=== PATIENT | male | born 1940 | race Caucasian/White ===

== ENCOUNTER 2022-08-04 13:11 | Emergency (ER) | payer OTHER, SELFPAY ==
[2022-08-04 13:34] VITALS: BP 130/78; PULSE 102; RESP 20; TEMP 36.6; O2SAT 98; BMI 31.4
--- NOTE | 2022-08-04 13:35 | ED_ITS ---
HPI - Skin/Abscess/Foreign Bdy General Chief complaint: Skin/Abscess/Foreign Body Stated complaint: Boil on Neck Time Seen by Provider: 08/04/22 13:39 Source: patient Mode of arrival: ambulatory History of Present Illness HPI narrative: 82-year-old male with no significant past medical history presenting to the ED complaining of boil behind left-side of neck/behind ear x3 weeks. Admits area was growing initially however has stopped. Denies area being painful, drainage, fever/chills, change in color, history of skin CA MD complaint: lesion Onset (ago): week(s) Related Data Allergies Allergy/AdvReac Type Severity Reaction Status Date / Time No Known Allergies Allergy Unverified 04/17/20 14:57 Review of Systems Review of Systems: Constitutional: No Fever, No Chills ENT/Mouth: No Ear Pain, No Nasal Congestion, No sore throat, No Rhinorrhea, No Swallowing Difficulty Cardiovascular: No Chest Pain, No SOB Respiratory: No Cough, No Sputum Gastrointestinal: No Nausea, No Vomiting, No Diarrhea, No Constipation, No Abdominal pain Genitourinary: No Dysuria, No Hematuria, No Flank Pain Musculoskeletal: No joint pain, No Myalgias, No Joint Swelling Skin: + Skin Lesions, No rash Neuro: No Weakness, No Numbness, No Paresthesias Yes all other systems are reviewed and are negative Constitutional: Constitutional: Reports as per [facility] Past Medical History Attestation statement: The following information was validated with the patient. Social History Social History Advance Directives: Yes Advance Directives on File: No Physical Exam Vital Signs: Vital Signs: Last Vital Signs Temp 97.9 F 08/04/22 13:34 Pulse 102 H 08/04/22 13:34 Resp 20 08/04/22 13:34 BP 130/78 08/04/22 13:34 Pulse Ox 98 08/04/22 13:34 O2 Del Method 08/04/22 13:34 BMI result Body Mass Index 31.4 Const: General: cooperative, healthy appearing and no acute distress Orientation/consciousness: patient oriented x3 Limitations: no limitations HEENT: Head: Yes normal to inspection and Yes atraumatic Ears: hearing grossly normal bilaterally, external ears normal and mastoids normal General nose exam: Normal external nose present Face and sinus: Yes normal facial exam Eyes: General: appearance normal, both eyes and all related structures EOM: EOMs intact bilaterally Neck: Neck: Yes normal visual inspection and Yes no meningeal signs Resp: Effort & Inspection: normal respiratory effort and no respiratory distress Cardio: Rate: regular rate Skin: Other: 1.5 cm x 1.5 cm lesion noted behind left ear with telangiectasias. Dark and light in color. Firm. No fluctuance/induration, no surrounding erythema Rashes: no rashes Neuro: General: patient oriented x3, tone normal and no meningeal signs Gait exam (Neuro): Normal gait present Extrem: General: Yes normal to inspection Medical Decision Making Medical Decision Making MDM Narrative: 82-year-old male with no significant past medical history presenting to the ED complaining of boil behind left-side of neck/behind ear x3 weeks. On exam mildly tachycardic to 102, anxious, physical exam as above concerning for skin cancer. No evidence of cellulitis, low suspicion for abscess, osteomyelitis Discussed with patient risk versus benefit of opening area, and recommended not disturbing lesion in till clear etiology noted. Recommended very close follow- up with Dermatology and or Plastic surgery for biopsy/removal Differential Diagnosis Differential Diagnoses: The differential diagnosis associated with the presentation includes As above Discharge Plan Discharge Clinical Impression: Skin lesion Patient Disposition: Home, Self-Care Instructions: Skin Biopsy (DC) Additional Instructions: Please follow-up with dermatology or plastic surgery as soon as possible. Call your primary care doctor for help. If area continues to grow, turns red/looks infected, is warm, or has drainage return to the emergency department You likely need a skin biopsy Referrals: Joe Kelley MD [Physician] - Yamilet Ellison PA [Physician Eating Disorder Specialist] - Clay Telles MD [Physician] - Francisco Gross MD [Physician] - Jeancarlos Duarte MD [Physician] - Duke Bearden MD [Physician] - Robbie Long MD [Physician] -
== END 2022-08-04 13:51 | disposition home or self-care (01) ==
PROVIDERS: Emergency Provider Emergency Medicine
DX: L98.8 Other specified disorders of the skin and subcutaneous tissue (principal); R00.0 Tachycardia, unspecified
CPT/HCPCS: 99282

== ENCOUNTER 2024-05-06 20:20 | Inpatient (IN) | payer OTHER, SELFPAY ==
--- NOTE | ~2024-05-06 | CT_ITS ---
EXAMINATION: CT ABDOMEN AND PELVIS WITHOUT CONTRAST CLINICAL INFORMATION: Spasms COMPARISON: None available. TECHNIQUE: Multidetector volumetric imaging was performed from the superior aspect of the liver through the pubic symphysis. Sagittal and coronal reformatted images were obtained on the technologist's workstation. This CT examination was performed using dose optimization techniques as appropriate, variously including the following: *Automated exposure control *Adjustment of mA and/or kV according to patient size (this includes techniques or standardized protocols for targeted exams where dose is matched to indication/reason for exam; i.e. extremities or head) *Use of iterative reconstruction technique DLP: 965 mGy-cm FINDINGS: LUNG BASES: The lung bases are clear. The heart size is normal. LIVER, GALLBLADDER, AND BILIARY TREE: The liver is enlarged and size, normal shape, and attenuation. No focal hepatic lesion or biliary ductal dilatation is present. The gallbladder is unremarkable with no evidence of radiopaque gallstones, gallbladder wall thickening, or obvious pericholecystic inflammatory changes. PANCREAS: There is scattered calcifications seen throughout the pancreas suggestive of chronic pancreatitis. No focal lesion seen. The peripancreatic soft tissues are normal . SPLEEN: Unremarkable. ADRENAL GLANDS: Unremarkable. KIDNEYS AND URETERS: The kidneys are normal in size, shape, and attenuation. There is a right peripelvic cyst with bilateral perinephric stranding. A hypodense exophytic lesion lower pole right kidney probable complex cyst., Stable There is calcification versus stone upper pole calyx right kidney. It was not visualized on the previous CT chest 05/06/2024. No hydronephrosis seen. BLADDER: The bladder is nondistended with a Givens's catheter within. Mild bladder wall thickening noted. GASTROINTESTINAL TRACT: There is moderate scattered stool, diverticuli and gas seen throughout the colon without distention. The small bowel loops are normal caliber. Appendix is not visualized. The small bowel loops are normal caliber. No free air or free fluid seen. ABDOMINAL WALL: A small umbilical hernia containing fat. LYMPH NODES: Normal. VASCULAR: There is atherosclerotic calcification abdominal aorta without aneurysmal dilatation. PELVIC VISCERA: The prostate gland is mildly enlarged with central gland calcification. OSSEOUS STRUCTURES: No aggressive lytic or sclerotic process seen. Mild degenerative disc changes lumbar spine. 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 CT/CT abdomen pelvis wo IV con IMPRESSION: 1. No acute intra-abdominal process seen. 2. Colonic diverticulosis without diverticulitis. 3. Right peripelvic cyst and small exams of lytic complex cyst lower pole right kidney. Stable. 4. Nonobstructive calcification versus stone upper pole calyx right kidney, new. 5. Mild bladder wall thickening with Givens's catheter within. 6. Mild prostate enlargement with central gland calcification. 7. Chronic pancreatitis. Fleischner guidelines were followed. Electronically signed by: Yemi Medina MD 05/09/2024 07:22 PM EDT RP
--- NOTE | ~2024-05-06 | CT_ITS ---
EXAMINATION: CT ABDOMEN AND PELVIS WITHOUT CONTRAST CLINICAL INFORMATION: Intra-abdominal bleeding COMPARISON: None available. TECHNIQUE: Multidetector volumetric imaging was performed from the superior aspect of the liver through the pubic symphysis. Sagittal and coronal reformatted images were obtained on the technologist's workstation. This CT examination was performed using dose optimization techniques as appropriate, variously including the following: *Automated exposure control *Adjustment of mA and/or kV according to patient size (this includes techniques or standardized protocols for targeted exams where dose is matched to indication/reason for exam; i.e. extremities or head) *Use of iterative reconstruction technique DLP: 687 mGy-cm FINDINGS: LUNG BASES: There is bronchial thickening and bibasilar atelectasis. LIVER, GALLBLADDER, AND BILIARY TREE: The liver is enlarged measuring 18 rin centimeters in greatest length. Attenuation is minimally decreased consistent with hepatic steatosis. No focal hepatic lesion or biliary ductal dilatation is present. The gallbladder is unremarkable with no evidence of radiopaque gallstones, gallbladder wall thickening, or obvious pericholecystic inflammatory changes. PANCREAS: Diffuse calcifications are seen throughout the pancreas consistent with chronic pancreatitis SPLEEN: Unremarkable. ADRENAL GLANDS: Unremarkable. KIDNEYS AND URETERS: The kidneys are normal in size, shape, and attenuation. No hydronephrosis, hydroureter, or calculi seen. A multiple parapelvic right-sided Bosniak class I renal cysts are noted which requires no additional imaging or follow up. No solid renal masses are seen. BLADDER: Unremarkable. GASTROINTESTINAL TRACT: The small and large bowel are unremarkable. The appendix is not seen but there is no evidence of appendicitis. ABDOMINAL WALL: Small periumbilical hernia seen containing only fat along with mild diastases of the rectus muscles. No abdominal wall hematoma is seen. LYMPH NODES: No retroperitoneal lymphadenopathy. No retroperitoneal hematoma is seen. VASCULAR: Calcific atherosclerotic changes are present in the aorta and iliofemoral vessels. There is no evidence of an abdominal aortic aneurysm. PELVIC VISCERA: The prostate and seminal vesicles are unremarkable. OSSEOUS STRUCTURES: Marked degenerative changes are present in the spine most prominent at L5-S1. CT/CT abdomen pelvis wo IV con IMPRESSION: 1. A there is no evidence of intra-abdominal bleeding. 2. Incidental note made of an enlarged fatty liver, chronic pancreatitis, degenerative changes in the spine and other findings described above. Fleischner guidelines were followed. Electronically signed by: Duke Carrasco MD 05/07/2024 12:45 AM EDT RP
--- NOTE | ~2024-05-06 | CT_ITS ---
EXAM: CT scan of the head and cervical spine. INDICATION: SVT TECHNIQUE: A noncontrast CT scan was performed from the skull base to the vertex. A noncontrast CT scan of the cervical spine was performed from the base of the skull through T1 at 2.5 mm and 1.25 mm collimation. Coronal and sagittal reformats were obtained at the acquisition workstation. This CT examination was performed using dose optimization techniques as appropriate, variously including the following: *Automated exposure control *Adjustment of mA and/or kV according to patient size (this includes techniques or standardized protocols for targeted exams where dose is matched to indication/reason for exam; i.e. extremities or head) *Use of iterative reconstruction technique DLP: mGy-cm COMPARISON: None FINDINGS: Head: There is no evidence of acute intracranial hemorrhage or territorial infarction. Little-white matter differentiation is preserved. No abnormal mass effect or midline shift. No extra-axial fluid collections. No abnormal attenuation is demonstrated within the brain parenchyma. Scattered periventricular and deep white matter hypodensities consistent with microangiopathy. The ventricles and sulcal spaces are proportional without hydrocephalus. Proportional prominence of the ventricles and sulcal spaces. No acute osseous or soft tissue abnormalities. The mastoid air cells and visualized portions of the paranasal sinuses are well aerated. Cervical Spine: The atlantooccipital and atlantoaxial articulations remain well aligned. Straightening of the normal cervical lordosis. Otherwise, there is anatomic alignment of the vertebral bodies and posterior elements. No evidence of acute fracture or subluxation. The vertebral body heights and disc spaces are notable for severe degenerative disc disease from C2 to 3 to C7-T1.. There is no prevertebral soft tissue swelling. The thyroid gland and remaining cervical soft tissues are normal in appearance. The lung apices demonstrate no abnormalities. CT/CT cervical spine wo IV con IMPRESSION: No acute intracranial pathology. No acute fracture subluxation cervical spine. Chest one view: No focal lesion. Heart and mediastinal normal. Lungs clear. No pleural disease. No ectopic air. IMPRESSION: No active chest disease. Electronically signed by: Tarun Ma MD 05/06/2024 11:02 PM EDT
[2024-05-06 20:25] VITALS: BP 110/54; PULSE 142; O2SAT 98
[2024-05-06 20:28] VITALS: BP 122/80; PULSE 150; RESP 26; TEMP 36.8; O2SAT 95; BMI 35.2
--- NOTE | 2024-05-06 20:38 | ECG_ITS ---
Test Reason : TACARDYA Blood Pressure : / mmHG Vent. Rate : 156 BPM Atrial Rate : 000 BPM P-R Int : 000 ms QRS Dur : 080 ms QT Int : 264 ms P-R-T Axes : 000 014 031 degrees QTc Int : 425 ms Supraventricular tachycardia Otherwise normal ECG No previous ECGs available Referred By: Generic ED Physician Electronically Signed By:BREANA GARCES
[2024-05-06 20:46] LABS: Glucose, Whole Blood 335 mg/dL (60-115)
[2024-05-06] MEDS: Adenosine 6 MG/2 ML VIAL IVPUSH (21:08)
[2024-05-06] MEDS: 0.9 % Sodium Chloride 1,000 ML 999 ML IV (21:09)
[2024-05-06 21:11] LABS: MANUAL DIFF FLAG NO
[2024-05-06 21:14] LABS: Basophils Percent Auto 0.4 % (0-2); Hematocrit 45.5 % (42.0-52.0); Hemoglobin 15.7 g/dl (14.0-18.0); Imm Gran Abs Auto 0.02 X10*3/uL (0.00-0.03); Imm Gran Pct Auto 0.3 % (0.0-0.4); Lymphocytes Absolute Auto 0.7 X10*3/uL (1.2-4.9); Lymphocytes Percent Auto 10.3 % (20-40); Mean Corpuscular HGB Conc 34.5 g/dl (31.0-36.0); Mean Corpuscular Hemoglobin 31.5 pg (27.0-33.0); Mean Corpuscular Volume 91.4 fL (80.0-98.0); Mean Platelet Volume 12.1 fL (9.4-12.4); Monocytes Absolute Auto 1.1 X10*3/uL (0.1-1.2); Monocytes Percent Auto 15.4 % (2-11); Neutrophils Absolute Auto 5.2 x10*3/uL (2.0-8.3); Neutrophils Percent Auto 73.6 % (45-73); Platelet Count 181 X10*3/uL (160-400); Red Blood Count 4.98 X10*6/uL (4.60-5.80); Red Cell Distribution Width 13.2 % (11.0-16.0); White Blood Count 7.1 X10*3/uL (4.8-10.8)
[2024-05-06] MEDS: Adenosine 6 MG/2 ML VIAL 12 MG IVPUSH (21:14)
--- NOTE | 2024-05-06 21:22 | ECG_ITS ---
Test Reason : TACARDYA Blood Pressure : / mmHG Vent. Rate : 153 BPM Atrial Rate : 000 BPM P-R Int : 000 ms QRS Dur : 074 ms QT Int : 298 ms P-R-T Axes : 000 -14 028 degrees QTc Int : 475 ms Supraventricular tachycardia Possible Inferior infarct , age undetermined Abnormal ECG When compared with ECG of 06-MAY-2024 20:41, No significant change was found Referred By: Leonarda Castillo Electronically Signed By:BREANA GARCES
[2024-05-06 21:33] VITALS: TEMP 37.8
[2024-05-06 21:36] LABS: Alanine Aminotransferase 21 U/L (0-40); Albumin Level 3.9 g/dL (3.5-5.0); Alkaline Phosphatase 90 U/L (39-117); Anion Gap 17 (12-20); Aspartate Amino Transferase 39 U/L (5-37); Beta-Hydroxybutyrate 1.16 mmol/L (0.02-0.27); Bilirubin Total 0.8 mg/dL (0.0-1.0); Blood Urea Nitrogen 32 mg/dL (9-16); Calcium 9.1 mg/dL (8.4-10.2); Carbon Dioxide 22 mmol/L (22-29); Chloride 103 mmol/L (96-108); Creatinine Clr Calc Pharmacy 34.8; Estimated Glomerular Filt Rate 36; Glucose Random 326 mg/dL (60-115); Magnesium 2.1 mg/dL (1.6-2.6); Potassium 4.5 mmol/L (3.3-5.1); Sodium 137 mmol/L (135-145); Total Protein 7.2 g/dL (6.5-8.0)
[2024-05-06] MEDS: 0.9 % Sodium Chloride 3,061.74 ML 3061.74 ML IV (21:37)
[2024-05-06] MEDS: cefTRIAXone sodium 2 GM in 0.9 % Sodium Chloride 50 ML IV (21:37)
[2024-05-06] MEDS: Acetaminophen 1,000 MG/100 ML PIGGYBACK 400 MG IV (21:37)
[2024-05-06 21:38] LABS: Troponin-I High Sensitivity 19.6 ng/L (<3.5-35.0)
[2024-05-06 21:40] LABS: B Type Natriuretic Peptide 28 pg/mL (<100)
[2024-05-06 21:41] LABS: Prothrombin Time 11.4 SEC (10.9-12.4)
[2024-05-06 21:47] VITALS: BP 122/72; PULSE 151; RESP 24; TEMP 37.1; O2SAT 93
[2024-05-06 22:01] LABS: Lactic Acid 2.3 mmol/L (0.5-2.0)
[2024-05-06 22:04] LABS: Influenza A PCR NEGATIVE (Negative); Influenza B PCR NEGATIVE (Negative); Resp Syncy Virus RNA Qual PCR NEGATIVE (Negative); SARS COV2 PCR INHOUSE POSITIVE (Negative)
[2024-05-06 22:32] LABS: Glucose, Whole Blood 302 mg/dL (60-115)
--- NOTE | 2024-05-06 22:46 | PC.NURSE ---
Attempted to straight cath patient x 2, ashlee red blood stuck in cath tubing w/ clots noted. Bladder scan completed showed >350, Jodi CANALES to bedside w/ provider US to assess patient, plan to insert 3 way barron for potential CBI, Jodi to order.
--- NOTE | 2024-05-06 23:14 | PC.NURSE ---
Patient BIBA w/ HR 150's, POC > 300, adenosine x 2 w/ good affect, 18G inserted by PA provider Jodi, cultures and lactic sent, temp 100.0 rectally. Patient's HR continues to range from 120's - 130's, plan to insert 3 way barron passed along to taking over RN Ainsley.
--- NOTE | 2024-05-06 23:25 | PC.NURSE ---
assumed care of the pt at 23:15.
[2024-05-06 23:36] LABS: Reflex Lactate? Lactic Acid Added
--- NOTE | 2024-05-06 23:44 | ED.GENADULT ---
HPI - General Adult General Chief complaint: Fall Stated complaint: unwit fall,-loc,+thinner,hyperglycemic&tachycardia Time Seen by Provider: 05/06/24 20:41 Source: patient Limitations: no limitations History of Present Illness ED Provider: Leonarad Castillo PA-C HPI narrative: 84-year-old male with a history of prostate cancer status post radiation, diabetes, presents after a fall at home. Patient states he literally rolled out of bed, and was wedged between the bed and his dresser. Patient was down on the ground for approximately 4 hours before he was able to call for assistance. Patient states he has had cough cold symptoms for 4 days. Unclear if he has had a fever. Patient denies preceding chest pain, shortness of breath or palpitations. Patient denies any pain related complaints at this time. Denies abdominal pain, nausea, vomiting, diarrhea, dysuria. Related Data Allergies Allergy/AdvReac Type Severity Reaction Status Date / Time No Known Allergies Allergy Verified 05/06/24 20:37 Review of Systems Review of Systems: Yes all other systems are reviewed and are negative Constitutional: Constitutional: Denies fever(s) Cardiovascular: Cardiovascular: Denies chest pain, Denies palpitations and Denies dyspnea Respiratory: Respiratory: Reports cough and Denies dyspnea Gastrointestinal: Gastrointestinal: Denies diarrhea, Denies nausea and Denies vomiting Genitourinary: Genitourinary: Denies dysuria, Denies urinary frequency and Denies urinary hesitancy Endocrine: Endocrine: Denies palpitations PMF Past Medical History Attestation statement: The following information was validated with the patient. Social History Social History Smoked in Last 30 Days: No Use of substances other than those prescribed or required for medical reasons: No Advance Directives: No Advance Directives Information Provided: Yes Do you have a plan to hurt others: No Plan Physical Exam ED Vital Signs: Vital Signs - 24 hr 05/06/24 20:28 05/06/24 21:33 05/06/24 21:47 Temperature 98.3 F 100.0 F 98.7 F Pulse Rate 150 H 151 H Respiratory Rate 26 H 24 H Blood Pressure 122/80 122/72 Pulse Oximetry 95 93 Oxygen Delivery Method Room Air Room Air 05/07/24 00:07 05/07/24 01:30 05/07/24 01:44 Temperature Pulse Rate 119 H 104 H 108 H Respiratory Rate 14 19 19 Blood Pressure 109/51 L 105/55 L 96/52 L Pulse Oximetry 94 92 92 Oxygen Delivery Method Room Air Room Air Room Air BMI result Body Mass Index 35.2 Const Other: Alert, overall well in appearance, no obvious signs of head trauma on exam Orientation/consciousness: patient oriented x3 Neck Other: Soft, supple, full range of motion no midline tenderness Resp Other: Nonlabored respirations, lungs clear to auscultation, however does have an active somewhat wet cough Effort & Inspection: normal respiratory effort Cardio Other: Normal peripheral perfusion GI Other: Abdomen is soft, nondistended, nontender no guarding, obese abdomen Skin Other: Warm dry no rash Neuro General: patient oriented x3, no focal motor deficits and CN's II-XI intact bilaterally Psych Other: Calm cooperative Course Reevaluation(s) Reevaluation #1: Refractory to initial dose of adenosine 6 mg, we will repeat with 12 mg Reevaluation #2: Patient is converting, he is now sinus tachycardia, however the rate is variable, we will obtain a repeat EKG we are just discovering that he is febrile as well we obtained a rectal temp, this is a likely cause of his tachycardia, we will be giving IV Tylenol, starting IV fluid resuscitation 30 mL/kilogram. I did bedside echo, IVC collapsed, he is hyperdynamic, we will be starting empiric antibiotics with ceftriaxone Reevaluation #3: 2nd EKG, he still is in SVT in that moment, his right then drops, he remains variable Additional Reevaluation(s): The patient's rate we will drop down to 101, his pressures are stable, he is over 100 systolic, his map was appropriate, when I obtained a 3rd EKG, he is now a flutter with variable AV block, a rate of 125, we also just tried to place a Givens catheter for CBI, huge amount of clot is obstructing the cath.....we may need uology, CT abd still pending..... which elicited a great deal of discomfort. We will be giving morphine. I have viewed his IVC, he still has respiratory variant, he is receiving L to in 3 at this time from his weight based IV fluid resuscitation Medications Administered Discontinued Medications Generic Name Dose Route Start Last Admin Trade Name Sahra PRN Reason Stop Dose Admin Adenosine 6 mg 05/06/24 20:51 05/06/24 21:08 Adenosine 6 Mg/2 Ml Vial IVPUSH 05/06/24 20:52 6 mg ONCE ONE Administration Adenosine 12 mg 05/06/24 21:11 05/06/24 21:14 Adenosine 6 Mg/2 Ml Vial IVPUSH 05/06/24 21:12 12 mg ONCE ONE Administration Sodium Chloride 1,000 mls @ 999 mls/hr 05/06/24 21:00 05/07/24 00:48 Ns IV 05/06/24 22:00 Infused .Q1H1M ASHVIN Infusion Ceftriaxone Sodium 2 gm/ 50 mls @ 100 mls/hr 05/06/24 21:22 05/06/24 22:58 Sodium Chloride IV 05/06/24 21:51 Infused ONCE ONE Infusion Acetaminophen 1,000 mg in 100 mls @ 400 mls/hr 05/06/24 21:22 05/06/24 22:58 Ofirmev IV 05/06/24 21:36 Infused ONCE ONE Infusion Sodium Chloride 3,061.74 mls @ 3,061.74 mls/hr 05/06/24 21:29 05/07/24 01:15 Ns 30 ml/kg infuse over 1 hr (3061.74 ml) 05/06/24 22:28 Infused IV Infusion .Q1H STA Lidocaine HCl 10 ml 05/07/24 00:24 05/07/24 01:39 Lidocaine Hcl 2 % Urojet 10 Ml Jel.Pf.Sabas TOPICAL 05/07/24 00:25 10 ml ONCE ONE Administration Morphine Sulfate 4 mg 05/06/24 23:50 05/06/24 23:54 Morphine Sulfate 4 Mg/Ml Cartridge IVPUSH 05/06/24 23:51 4 mg ONCE ONE Administration Protocol Procedures Procedure Narrative Procedure Narrative: 18 gauge 3/4 inch ultrasound guided IV placed in the right upper extremity. Adequate blood return, flushes well, secured with Tegaderm Medical Decision Making Medical Decision Making MDM Narrative: 84-year-old male with a history of prostate cancer status post radiation, diabetes, presents after a fall at home. Patient states he literally rolled out of bed, and was wedged between the bed and his dresser. Patient was down on the ground for approximately 4 hours before he was able to call for assistance. Patient states he has had cough cold symptoms for 4 days. Unclear if he has had a fever. Patient denies preceding chest pain, shortness of breath or palpitations. Patient denies any pain related complaints at this time. Denies abdominal pain, nausea, vomiting, diarrhea, dysuria. Problem: Prostate cancer and diabetes History: Per patient I have considered the following differential diagnoses: ACS, , sepsis, PE, intracranial hemorrhage, cervical spine injury, perforated viscus, viral syndrome, pneumonia, Fracture, dislocation Plan: In regard to the fall, the patient was down on the ground for an extended period of time, I am concerned for rhabdomyolysis, with screening labs I will add a CPK. Given his age, it is unclear if he struck his head, I will scan his head and neck, to note, there was no sign of trauma on exam, he is not altered, he is neurologically intact, there was nothing to suggest an intracranial hemorrhage. He also has no midline tenderness of the cervical spine which is reassuring. Incidentally, the patient is in SVT with a rate of 156. I asked the patient if he has been ill recently, he is endorsing cough and cold symptoms over the past 4 days. Perhaps he was febrile. I am planning on giving adenosine, we will obtain a rectal temp once the patient is stabilized. We will give concurrent IV fluid as his pressures are soft, low 100 systolic. I am also considering sepsis, we will be obtaining blood cultures and a lactic acid, chest x-ray, viral panel and urinalysis. I do not think this is ACS, the patient has not had chest pain, there was no preceding chest pain or shortness of breath prior to the mechanical fall. However, given his rapid rate, he was on the floor for an extended period of time, and was presumably tachycardic for the duration, we will be screening cardiac enzymes. Thought about PE given tachycardia, however the patient is not complaining of chest pain, he is not hypoxic, there are no objective exam findings to suggest a DVT, I am deferring a dimer at this time. When the patient was catheterized to obtain a urine sample we will, the catheter was clogged with clot, I am now concerned for intra-abdominal bleeding despite the fact the patient denies abdominal pain, we will obtain a CT scan. I have viewed the bladder with bedside ultrasound, the bladder is intact, it is distended, he is retaining, the volume is approximately 1L. Given concurrent clot, we will place a three-way in the event that he requires CBI. The patient is febrile, we will initiate IV fluid resuscitation, per sepsis protocol, 30 mL/kilogram. I did assessed with bedside echo, his contractility is hyperdynamic at this time, his IVC is collapsing, he can take the fluid. We will give IV acetaminophen, and start empiric ceftriaxone. I have independently reviewed the following tests: Labs: No leukocytosis, not anemic, no electrolyte abnormality, creatinine 1.83, unclear if this is elevated from his baseline, sugar 335, CPK 1167, 1st troponin 19.6, BOH1.16 we will obtain a 2nd troponin and a 2nd lactate when it is time, I will do so at the 2 hour zen COVID positive Repeat lactate 1.6, delta troponin 25 EKG: SVT, rate of 156, QTC 4-5 EKG 2.: SVT, rate of 153, QT 475 EKG 3.: A flutter with a variable AV block, rate of 125, qtc 453 CXR: chest one view: No focal lesion. Heart and mediastinal normal. Lungs clear. No pleural disease. No ectopic air. IMPRESSION: No active chest disease. CT brain and cervical spine:CT scan of the head and cervical spine. INDICATION: SVT TECHNIQUE: A noncontrast CT scan was performed from the skull base to the vertex. A noncontrast CT scan of the cervical spine was performed from the base of the skull through T1 at 2.5 mm and 1.25 mm collimation. Coronal and sagittal reformats were obtained at the acquisition workstation. This CT examination was performed using dose optimization techniques as appropriate, variously including the following: *Automated exposure control *Adjustment of mA and/or kV according to patient size (this includes techniques or standardized protocols for targeted exams where dose is matched to indication/reason for exam; i.e. extremities or head) *Use of iterative reconstruction technique DLP: mGy-cm COMPARISON: None FINDINGS: Head: There is no evidence of acute intracranial hemorrhage or territorial infarction. Little-white matter differentiation is preserved. No abnormal mass effect or midline shift. No extra-axial fluid collections. No abnormal attenuation is demonstrated within the brain parenchyma. Scattered periventricular and deep white matter hypodensities consistent with microangiopathy. The ventricles and sulcal spaces are proportional without hydrocephalus. Proportional prominence of the ventricles and sulcal spaces. No acute osseous or soft tissue abnormalities. The mastoid air cells and visualized portions of the paranasal sinuses are well aerated. Cervical Spine: The atlantooccipital and atlantoaxial articulations remain well aligned. Straightening of the normal cervical lordosis. Otherwise, there is anatomic alignment of the vertebral bodies and posterior elements. No evidence of acute fracture or subluxation. The vertebral body heights and disc spaces are notable for severe degenerative disc disease from C2 to 3 to C7-T1.. There is no prevertebral soft tissue swelling. The thyroid gland and remaining cervical soft tissues are normal in appearance. The lung apices demonstrate no abnormalities. CT/CT head/brain wo IV con IMPRESSION: No acute intracranial pathology. No acute fracture subluxation cervical spine. Chest one view: No focal lesion. Heart and mediastinal normal. Lungs clear. No pleural disease. No ectopic air. IMPRESSION: No active chest disease. Electronically signed by: Tarun Ma MD 05/06/2024 11:[address] abd: CT ABDOMEN AND PELVIS WITHOUT CONTRAST CLINICAL INFORMATION: Intra-abdominal bleeding COMPARISON: None available. TECHNIQUE: Multidetector volumetric imaging was performed from the superior aspect of the liver through the pubic symphysis. Sagittal and coronal reformatted images were obtained on the technologist's workstation. This CT examination was performed using dose optimization techniques as appropriate, variously including the following: *Automated exposure control *Adjustment of mA and/or kV according to patient size (this includes techniques or standardized protocols for targeted exams where dose is matched to indication/reason for exam; i.e. extremities or head) *Use of iterative reconstruction technique DLP: 687 mGy-cm FINDINGS: LUNG BASES: There is bronchial thickening and bibasilar atelectasis. LIVER, GALLBLADDER, AND BILIARY TREE: The liver is enlarged measuring 18 rin centimeters in greatest length. Attenuation is minimally decreased consistent with hepatic steatosis. No focal hepatic lesion or biliary ductal dilatation is present. The gallbladder is unremarkable with no evidence of radiopaque gallstones, gallbladder wall thickening, or obvious pericholecystic inflammatory changes. PANCREAS: Diffuse calcifications are seen throughout the pancreas consistent with chronic pancreatitis SPLEEN: Unremarkable. ADRENAL GLANDS: Unremarkable. KIDNEYS AND URETERS: The kidneys are normal in size, shape, and attenuation. No hydronephrosis, hydroureter, or calculi seen. A multiple parapelvic right-sided Bosniak class I renal cysts are noted which requires no additional imaging or follow up. No solid renal masses are seen. BLADDER: Unremarkable. GASTROINTESTINAL TRACT: The small and large bowel are unremarkable. The appendix is not seen but there is no evidence of appendicitis. ABDOMINAL WALL: Small periumbilical hernia seen containing only fat along with mild diastases of the rectus muscles. No abdominal wall hematoma is seen. LYMPH NODES: No retroperitoneal lymphadenopathy. No retroperitoneal hematoma is seen. VASCULAR: Calcific atherosclerotic changes are present in the aorta and iliofemoral vessels. There is no evidence of an abdominal aortic aneurysm. PELVIC VISCERA: The prostate and seminal vesicles are unremarkable. OSSEOUS STRUCTURES: Marked degenerative changes are present in the spine most prominent at L5-S1. CT/CT abdomen pelvis wo IV con IMPRESSION: 1. A there is no evidence of intra-abdominal bleeding. 2. Incidental note made of an enlarged fatty liver, chronic pancreatitis, degenerative changes in the spine and other findings described above. Fleischner guidelines were followed. Electronically signed by: Duke Carrasco MD 05/07/2024 12:45 AM EDT Lab Data 05/06/24 21:05 05/06/24 21:05 Labs: Lab Results 05/06/24 05/06/24 05/06/24 Range/Units 20:43 21:05 21:05 WBC 7.1 (4.8-10.8) X10*3/uL RBC 4.98 (4.60-5.80) X10*6/uL Hgb 15.7 (14.0-18.0) g/dl Hct 45.5 (42.0-52.0) % MCV 91.4 (80.0-98.0) fL MCH 31.5 (27.0-33.0) pg MCHC 34.5 (31.0-36.0) g/dl RDW 13.2 (11.0-16.0) % Plt Count 181 (160-400) X10*3/uL MPV 12.1 (9.4-12.4) fL Immature Gran % (Auto) 0.3 (0.0-0.4) % Neut % (Auto) 73.6 H (45-73) % Lymph % (Auto) 10.3 L (20-40) % Garrett % (Auto) 15.4 H (2-11) % Eos % (Auto) 0.0 (0-4) % Baso % (Auto) 0.4 (0-2) % Lymph # (Auto) 0.7 L (1.2-4.9) X10*3/uL Garrett # (Auto) 1.1 (0.1-1.2) X10*3/uL Eos # (Auto) 0.0 (0.0-0.4) X10*3/uL Baso # (Auto) 0.0 (0.0-0.2) X10*3/uL Abs Immat Gran (auto) 0.02 (0.00-0.03) X10*3/uL Absolute Neuts (auto) 5.2 (2.0-8.3) x10*3/uL Absolute Nucleated RBC 0.000 (0.0-0.012) X10*3/uL Nucleated RBC % (auto) 0.0 (0.0-0.2) /100WBC PT 11.4 (10.9-12.4) SEC INR 1.0 (0.9-1.1) Sodium Cancelled 137 Potassium Cancelled Chloride Carbon Dioxide Anion Gap BUN Creatinine Estim Creat Clear Calc Estimated GFR POC Glucose 335 H (60-115) mg/dL Random Glucose Lactic Acid (0.5-2.0) mmol/L Calcium Magnesium Total Bilirubin AST ALT Alkaline Phosphatase Total Creatine Kinase (38-174) U/L Troponin I High Sens (<3.5-35.0) ng/L B-Natriuretic Peptide (<100) pg/mL Total Protein Albumin Beta-Hydroxybutyrate Influenza Type A (PCR) (Negative) Influenza Type B (PCR) (Negative) RSV RNA Qual (PCR) (Negative) SARS-CoV-2 RNA (RT-PCR) (Negative) 05/06/24 05/06/24 05/06/24 Range/Units 21:05 21:05 21:05 WBC (4.8-10.8) X10*3/uL RBC (4.60-5.80) X10*6/uL Hgb (14.0-18.0) g/dl Hct (42.0-52.0) % MCV (80.0-98.0) fL MCH (27.0-33.0) pg MCHC (31.0-36.0) g/dl RDW (11.0-16.0) % Plt Count (160-400) X10*3/uL MPV (9.4-12.4) fL Immature Gran % (Auto) (0.0-0.4) % Neut % (Auto) (45-73) % Lymph % (Auto) (20-40) % Garrett % (Auto) (2-11) % Eos % (Auto) (0-4) % Baso % (Auto) (0-2) % Lymph # (Auto) (1.2-4.9) X10*3/uL Garrett # (Auto) (0.1-1.2) X10*3/uL Eos # (Auto) (0.0-0.4) X10*3/uL Baso # (Auto) (0.0-0.2) X10*3/uL Abs Immat Gran (auto) (0.00-0.03) X10*3/uL Absolute Neuts (auto) (2.0-8.3) x10*3/uL Absolute Nucleated RBC (0.0-0.012) X10*3/uL Nucleated RBC % (auto) (0.0-0.2) /100WBC PT (10.9-12.4) SEC INR (0.9-1.1) Sodium Potassium 4.5 Chloride Cancelled 103 Carbon Dioxide Cancelled 22 Anion Gap Cancelled BUN Creatinine Estim Creat Clear Calc Estimated GFR POC Glucose (60-115) mg/dL Random Glucose Lactic Acid (0.5-2.0) mmol/L Calcium Magnesium Total Bilirubin AST ALT Alkaline Phosphatase Total Creatine Kinase (38-174) U/L Troponin I High Sens (<3.5-35.0) ng/L B-Natriuretic Peptide (<100) pg/mL Total Protein Albumin Beta-Hydroxybutyrate Influenza Type A (PCR) (Negative) Influenza Type B (PCR) (Negative) RSV RNA Qual (PCR) (Negative) SARS-CoV-2 RNA (RT-PCR) (Negative) 05/06/24 05/06/24 05/06/24 Range/Units 21:05 21:05 21:05 WBC (4.8-10.8) X10*3/uL RBC (4.60-5.80) X10*6/uL Hgb (14.0-18.0) g/dl Hct (42.0-52.0) % MCV (80.0-98.0) fL MCH (27.0-33.0) pg MCHC (31.0-36.0) g/dl RDW (11.0-16.0) % Plt Count (160-400) X10*3/uL MPV (9.4-12.4) fL Immature Gran % (Auto) (0.0-0.4) % Neut % (Auto) (45-73) % Lymph % (Auto) (20-40) % Garrett % (Auto) (2-11) % Eos % (Auto) (0-4) % Baso % (Auto) (0-2) % Lymph # (Auto) (1.2-4.9) X10*3/uL Garrett # (Auto) (0.1-1.2) X10*3/uL Eos # (Auto) (0.0-0.4) X10*3/uL Baso # (Auto) (0.0-0.2) X10*3/uL Abs Immat Gran (auto) (0.00-0.03) X10*3/uL Absolute Neuts (auto) (2.0-8.3) x10*3/uL Absolute Nucleated RBC (0.0-0.012) X10*3/uL Nucleated RBC % (auto) (0.0-0.2) /100WBC PT (10.9-12.4) SEC INR (0.9-1.1) Sodium Potassium Chloride Carbon Dioxide Anion Gap 17 BUN Cancelled 32 H Creatinine Cancelled 1.83 H Estim Creat Clear Calc Cancelled Estimated GFR POC Glucose (60-115) mg/dL Random Glucose Lactic Acid (0.5-2.0) mmol/L Calcium Magnesium Total Bilirubin AST ALT Alkaline Phosphatase Total Creatine Kinase (38-174) U/L Troponin I High Sens (<3.5-35.0) ng/L B-Natriuretic Peptide (<100) pg/mL Total Protein Albumin Beta-Hydroxybutyrate Influenza Type A (PCR) (Negative) Influenza Type B (PCR) (Negative) RSV RNA Qual (PCR) (Negative) SARS-CoV-2 RNA (RT-PCR) (Negative) 05/06/24 05/06/24 05/06/24 Range/Units 21:05 21:05 21:05 WBC (4.8-10.8) X10*3/uL RBC (4.60-5.80) X10*6/uL Hgb (14.0-18.0) g/dl Hct (42.0-52.0) % MCV (80.0-98.0) fL MCH (27.0-33.0) pg MCHC (31.0-36.0) g/dl RDW (11.0-16.0) % Plt Count (160-400) X10*3/uL MPV (9.4-12.4) fL Immature Gran % (Auto) (0.0-0.4) % Neut % (Auto) (45-73) % Lymph % (Auto) (20-40) % Garrett % (Auto) (2-11) % Eos % (Auto) (0-4) % Baso % (Auto) (0-2) % Lymph # (Auto) (1.2-4.9) X10*3/uL Garrett # (Auto) (0.1-1.2) X10*3/uL Eos # (Auto) (0.0-0.4) X10*3/uL Baso # (Auto) (0.0-0.2) X10*3/uL Abs Immat Gran (auto) (0.00-0.03) X10*3/uL Absolute Neuts (auto) (2.0-8.3) x10*3/uL Absolute Nucleated RBC (0.0-0.012) X10*3/uL Nucleated RBC % (auto) (0.0-0.2) /100WBC PT (10.9-12.4) SEC INR (0.9-1.1) Sodium Potassium Chloride Carbon Dioxide Anion Gap BUN Creatinine Estim Creat Clear Calc 34.8 Estimated GFR Cancelled 36 POC Glucose (60-115) mg/dL Random Glucose Cancelled 326 H Lactic Acid (0.5-2.0) mmol/L Calcium Cancelled Magnesium Total Bilirubin AST ALT Alkaline Phosphatase Total Creatine Kinase (38-174) U/L Troponin I High Sens (<3.5-35.0) ng/L B-Natriuretic Peptide (<100) pg/mL Total Protein Albumin Beta-Hydroxybutyrate Influenza Type A (PCR) (Negative) Influenza Type B (PCR) (Negative) RSV RNA Qual (PCR) (Negative) SARS-CoV-2 RNA (RT-PCR) (Negative) 05/06/24 05/06/24 05/06/24 Range/Units 21:05 21:05 21:05 WBC (4.8-10.8) X10*3/uL RBC (4.60-5.80) X10*6/uL Hgb (14.0-18.0) g/dl Hct (42.0-52.0) % MCV (80.0-98.0) fL MCH (27.0-33.0) pg MCHC (31.0-36.0) g/dl RDW (11.0-16.0) % Plt Count (160-400) X10*3/uL MPV (9.4-12.4) fL Immature Gran % (Auto) (0.0-0.4) % Neut % (Auto) (45-73) % Lymph % (Auto) (20-40) % Garrett % (Auto) (2-11) % Eos % (Auto) (0-4) % Baso % (Auto) (0-2) % Lymph # (Auto) (1.2-4.9) X10*3/uL Garrett # (Auto) (0.1-1.2) X10*3/uL Eos # (Auto) (0.0-0.4) X10*3/uL Baso # (Auto) (0.0-0.2) X10*3/uL Abs Immat Gran (auto) (0.00-0.03) X10*3/uL Absolute Neuts (auto) (2.0-8.3) x10*3/uL Absolute Nucleated RBC (0.0-0.012) X10*3/uL Nucleated RBC % (auto) (0.0-0.2) /100WBC PT (10.9-12.4) SEC INR (0.9-1.1) Sodium Potassium Chloride Carbon Dioxide Anion Gap BUN Creatinine Estim Creat Clear Calc Estimated GFR POC Glucose (60-115) mg/dL Random Glucose Lactic Acid (0.5-2.0) mmol/L Calcium 9.1 Magnesium Cancelled 2.1 Total Bilirubin Cancelled 0.8 AST Cancelled ALT Alkaline Phosphatase Total Creatine Kinase (38-174) U/L Troponin I High Sens (<3.5-35.0) ng/L B-Natriuretic Peptide (<100) pg/mL Total Protein Albumin Beta-Hydroxybutyrate Influenza Type A (PCR) (Negative) Influenza Type B (PCR) (Negative) RSV RNA Qual (PCR) (Negative) SARS-CoV-2 RNA (RT-PCR) (Negative) 05/06/24 05/06/24 05/06/24 Range/Units 21:05 21:05 21:05 WBC (4.8-10.8) X10*3/uL RBC (4.60-5.80) X10*6/uL Hgb (14.0-18.0) g/dl Hct (42.0-52.0) % MCV (80.0-98.0) fL MCH (27.0-33.0) pg MCHC (31.0-36.0) g/dl RDW (11.0-16.0) % Plt Count (160-400) X10*3/uL MPV (9.4-12.4) fL Immature Gran % (Auto) (0.0-0.4) % Neut % (Auto) (45-73) % Lymph % (Auto) (20-40) % Garrett % (Auto) (2-11) % Eos % (Auto) (0-4) % Baso % (Auto) (0-2) % Lymph # (Auto) (1.2-4.9) X10*3/uL Garrett # (Auto) (0.1-1.2) X10*3/uL Eos # (Auto) (0.0-0.4) X10*3/uL Baso # (Auto) (0.0-0.2) X10*3/uL Abs Immat Gran (auto) (0.00-0.03) X10*3/uL Absolute Neuts (auto) (2.0-8.3) x10*3/uL Absolute Nucleated RBC (0.0-0.012) X10*3/uL Nucleated RBC % (auto) (0.0-0.2) /100WBC PT (10.9-12.4) SEC INR (0.9-1.1) Sodium Potassium Chloride Carbon Dioxide Anion Gap BUN Creatinine Estim Creat Clear Calc Estimated GFR POC Glucose (60-115) mg/dL Random Glucose Lactic Acid (0.5-2.0) mmol/L Calcium Magnesium Total Bilirubin AST 39 H ALT Cancelled 21 Alkaline Phosphatase Cancelled 90 Total Creatine Kinase 1167 H (38-174) U/L Troponin I High Sens 19.6 (<3.5-35.0) ng/L B-Natriuretic Peptide 28 (<100) pg/mL Total Protein Cancelled Albumin Beta-Hydroxybutyrate Influenza Type A (PCR) (Negative) Influenza Type B (PCR) (Negative) RSV RNA Qual (PCR) (Negative) SARS-CoV-2 RNA (RT-PCR) (Negative) 05/06/24 05/06/24 05/06/24 Range/Units 21:05 21:05 21:05 WBC (4.8-10.8) X10*3/uL RBC (4.60-5.80) X10*6/uL Hgb (14.0-18.0) g/dl Hct (42.0-52.0) % MCV (80.0-98.0) fL MCH (27.0-33.0) pg MCHC (31.0-36.0) g/dl RDW (11.0-16.0) % Plt Count (160-400) X10*3/uL MPV (9.4-12.4) fL Immature Gran % (Auto) (0.0-0.4) % Neut % (Auto) (45-73) % Lymph % (Auto) (20-40) % Garrett % (Auto) (2-11) % Eos % (Auto) (0-4) % Baso % (Auto) (0-2) % Lymph # (Auto) (1.2-4.9) X10*3/uL Garrett # (Auto) (0.1-1.2) X10*3/uL Eos # (Auto) (0.0-0.4) X10*3/uL Baso # (Auto) (0.0-0.2) X10*3/uL Abs Immat Gran (auto) (0.00-0.03) X10*3/uL Absolute Neuts (auto) (2.0-8.3) x10*3/uL Absolute Nucleated RBC (0.0-0.012) X10*3/uL Nucleated RBC % (auto) (0.0-0.2) /100WBC PT (10.9-12.4) SEC INR (0.9-1.1) Sodium Potassium Chloride Carbon Dioxide Anion Gap BUN Creatinine Estim Creat Clear Calc Estimated GFR POC Glucose (60-115) mg/dL Random Glucose Lactic Acid (0.5-2.0) mmol/L Calcium Magnesium Total Bilirubin AST ALT Alkaline Phosphatase Total Creatine Kinase (38-174) U/L Troponin I High Sens (<3.5-35.0) ng/L B-Natriuretic Peptide (<100) pg/mL Total Protein 7.2 Albumin Cancelled 3.9 Beta-Hydroxybutyrate Cancelled 1.16 H Influenza Type A (PCR) (Negative) Influenza Type B (PCR) (Negative) RSV RNA Qual (PCR) (Negative) SARS-CoV-2 RNA (RT-PCR) (Negative) 05/06/24 05/06/24 05/06/24 Range/Units 21:06 21:31 21:44 WBC (4.8-10.8) X10*3/uL RBC (4.60-5.80) X10*6/uL Hgb (14.0-18.0) g/dl Hct (42.0-52.0) % MCV (80.0-98.0) fL MCH (27.0-33.0) pg MCHC (31.0-36.0) g/dl RDW (11.0-16.0) % Plt Count (160-400) X10*3/uL MPV (9.4-12.4) fL Immature Gran % (Auto) (0.0-0.4) % Neut % (Auto) (45-73) % Lymph % (Auto) (20-40) % Garrett % (Auto) (2-11) % Eos % (Auto) (0-4) % Baso % (Auto) (0-2) % Lymph # (Auto) (1.2-4.9) X10*3/uL Garrett # (Auto) (0.1-1.2) X10*3/uL Eos # (Auto) (0.0-0.4) X10*3/uL Baso # (Auto) (0.0-0.2) X10*3/uL Abs Immat Gran (auto) (0.00-0.03) X10*3/uL Absolute Neuts (auto) (2.0-8.3) x10*3/uL Absolute Nucleated RBC (0.0-0.012) X10*3/uL Nucleated RBC % (auto) (0.0-0.2) /100WBC PT (10.9-12.4) SEC INR (0.9-1.1) Sodium Potassium Chloride Carbon Dioxide Anion Gap BUN Creatinine Estim Creat Clear Calc Estimated GFR POC Glucose 302 H (60-115) mg/dL Random Glucose Lactic Acid 2.3 H* (0.5-2.0) mmol/L Calcium Magnesium Total Bilirubin AST ALT Alkaline Phosphatase Total Creatine Kinase (38-174) U/L Troponin I High Sens (<3.5-35.0) ng/L B-Natriuretic Peptide (<100) pg/mL Total Protein Albumin Beta-Hydroxybutyrate Influenza Type A (PCR) NEGATIVE (Negative) Influenza Type B (PCR) NEGATIVE (Negative) RSV RNA Qual (PCR) NEGATIVE (Negative) SARS-CoV-2 RNA (RT-PCR) POSITIVE A (Negative) 05/07/24 Range/Units 00:12 WBC (4.8-10.8) X10*3/uL RBC (4.60-5.80) X10*6/uL Hgb (14.0-18.0) g/dl Hct (42.0-52.0) % MCV (80.0-98.0) fL MCH (27.0-33.0) pg MCHC (31.0-36.0) g/dl RDW (11.0-16.0) % Plt Count (160-400) X10*3/uL MPV (9.4-12.4) fL Immature Gran % (Auto) (0.0-0.4) % Neut % (Auto) (45-73) % Lymph % (Auto) (20-40) % Garrett % (Auto) (2-11) % Eos % (Auto) (0-4) % Baso % (Auto) (0-2) % Lymph # (Auto) (1.2-4.9) X10*3/uL Garrett # (Auto) (0.1-1.2) X10*3/uL Eos # (Auto) (0.0-0.4) X10*3/uL Baso # (Auto) (0.0-0.2) X10*3/uL Abs Immat Gran (auto) (0.00-0.03) X10*3/uL Absolute Neuts (auto) (2.0-8.3) x10*3/uL Absolute Nucleated RBC (0.0-0.012) X10*3/uL Nucleated RBC % (auto) (0.0-0.2) /100WBC PT (10.9-12.4) SEC INR (0.9-1.1) Sodium Potassium Chloride Carbon Dioxide Anion Gap BUN Creatinine Estim Creat Clear Calc Estimated GFR POC Glucose (60-115) mg/dL Random Glucose Lactic Acid 1.6 (0.5-2.0) mmol/L Calcium Magnesium Total Bilirubin AST ALT Alkaline Phosphatase Total Creatine Kinase (38-174) U/L Troponin I High Sens 25.1 (<3.5-35.0) ng/L B-Natriuretic Peptide (<100) pg/mL Total Protein Albumin Beta-Hydroxybutyrate Influenza Type A (PCR) (Negative) Influenza Type B (PCR) (Negative) RSV RNA Qual (PCR) (Negative) SARS-CoV-2 RNA (RT-PCR) (Negative) Critical Care Time Critical Care Time Critical Care Time: Yes Total Critical Care Time: 45 Attestation: The patient was critically ill with a high probability of imminent or life-threatening deterioration. I spent greater than 30 minutes of discontinuous time evaluating the patient, delivering critical care at the bedside, discussing evaluating data with consultants. Critical care time does not include time spent performing separately billable procedures or teaching. Time spent performing critical care with 45 minutes. Discharge Plan Discharge Clinical Impression: Other supraventricular tachycardia, Sepsis, COVID, MARCELLO (acute kidney injury), Rhabdomyolysis Patient Disposition: Admitted As Inpatient Print Language: Panamanian
--- NOTE | 2024-05-06 23:52 | ECG_ITS ---
Test Reason : repeat Blood Pressure : / mmHG Vent. Rate : 125 BPM Atrial Rate : 300 BPM P-R Int : 000 ms QRS Dur : 072 ms QT Int : 314 ms P-R-T Axes : 000 027 057 degrees QTc Int : 453 ms Atrial flutter with variable A-V block Anterior infarct , age undetermined Abnormal ECG When compared with ECG of 06-MAY-2024 21:33, Atrial flutter has replaced Sinus rhythm Anterior infarct is now Present Referred By: Leonarda Castillo Electronically Signed By:BREANA GARCES
[2024-05-06] MEDS: Morphine Sulfate 4 MG/ML CARTRIDGE IVPUSH (23:54)
[2024-05-07] VITALS (10 sets, daily range): BP systolic 96–136; BP diastolic 51–74; PULSE 81–124; RESP 14–21; TEMP 36.4–36.9; O2SAT 90–95
[2024-05-07 00:28] LABS: Lactic Acid 1.6 mmol/L (0.5-2.0)
[2024-05-07 00:39] LABS: Troponin-I High Sensitivity 25.1 ng/L (<3.5-35.0)
--- NOTE | 2024-05-07 00:49 | PC.NURSE ---
iv fluids still infusing.
--- NOTE | 2024-05-07 00:49 | PC.NURSE ---
20fr barron catheter inserted by MD Gotti. difficult insertion at first as provider thought CBI was indicated, barron not able to be inserted without coude . MD gotti used guide wire to insert barron w/ urojet assistance. pt tolerated well. clear yellow urine draining w/o issue, no blood or clots noted .
[2024-05-07] MEDS: Lidocaine HCl 2 % Urojet 10 ML JEL.PF.APP TOPICAL (01:39)
[2024-05-07 05:11] LABS: Hematocrit 41.1 % (42.0-52.0); Hemoglobin 13.9 g/dl (14.0-18.0); Mean Corpuscular HGB Conc 33.8 g/dl (31.0-36.0); Mean Corpuscular Hemoglobin 31.7 pg (27.0-33.0); Mean Corpuscular Volume 93.6 fL (80.0-98.0); Mean Platelet Volume 12.2 fL (9.4-12.4); Platelet Count 122 X10*3/uL (160-400); Red Blood Count 4.39 X10*6/uL (4.60-5.80); Red Cell Distribution Width 13.4 % (11.0-16.0); White Blood Count 5.7 X10*3/uL (4.8-10.8)
[2024-05-07 05:39] LABS: Anion Gap 11 (12-20); Blood Urea Nitrogen 29 mg/dL (9-16); Carbon Dioxide 18 mmol/L (22-29); Chloride 114 mmol/L (96-108); Creatinine Clr Calc Pharmacy 44.5; Estimated Glomerular Filt Rate 47; Glucose Random 229 mg/dL (60-115); Potassium 4.1 mmol/L (3.3-5.1); Sodium 139 mmol/L (135-145)
--- NOTE | 2024-05-07 07:00 | CA_ITS ---
Transthoracic Echocardiogram Patient (Last, First, Middle): Carl Houser J Gender: Male Date of : 1940 Age: 84 Procedure Date: 05/07/2024 Procedure Type: Transthoracic Echocardiogram Location: ER Height: 170.18 cm Weight: 102.06 kg BSA: 2.13 m2 Heart Rate: 85 bpm BP: 124 / 70 mmHg Chemical Equipment Sales Engineer: Referring MD: Geraldine CANALES Top Hat Body Maker: Saud Lane MD Symptoms: new aflutter Study Quality: Fair ECG Rhythm: Sinus with extra beats Conclusions: - 1. Technically limited study despite use of contrast agent 2. Normal LV ejection fraction at 60 65% with moderate LVH with impaired relaxation filling pattern 3. Mild aortic stenosis 4. 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 Normal RV systolic pressure Findings Procedure Information Contrast agent, definity, is being given per protocol without apparent complications. The quality of the study was technically difficult. The study quality is limited by lung artifact. Left Ventricle Normal left ventricular size and systolic function. There is moderately increased left ventricular wall thickness. The visually estimated ejection fraction is between 60-65%. Spectral Doppler is indicative of an impaired relaxation filling pattern. Right Ventricle The right ventricle was not well visualized. There is normal right ventricular systolic function. Atria The left atrium was not well visualized. Interatrial shunt cannot be excluded. The right atrium was not well visualized. Aortic Valve The aortic valve was not well visualized. There is moderate calcification of the aortic valve. There is mild aortic valve stenosis. The peak aortic gradient is 20 mmHg.The mean gradient is 11 mmHg. The aortic valve area is 1.54 cm2. There is no aortic valve regurgitation. Mitral Valve The mitral valve was not well visualized. There is moderate mitral annular calcification. There is no mitral valve regurgitation. There is no mitral valve stenosis. Pulmonic Valve The pulmonic valve was not well visualized. Tricuspid Valve Likely normal tricuspid valve structure and function. There is trace tricuspid valve regurgitation. The right ventricular systolic pressure is normal. The right ventricular systolic pressure is 18 mmHg. Normal right atrial pressure. There is no evidence of pulmonary hypertension. Great Vessels The aorta was not well visualized. The pulmonary artery was not well visualized. There is mild dilatation of the ascending aorta measuring 3.70 cm. Venous The inferior vena cava is normal in size. Pericardium/Pleural The pericardium was not well visualized. Prior Study Comparison No prior study available for comparison. Measurements 2D Linear Measurements IVSd: 1.40 0.6-0.9/0.6-1.0 cm LVIDd: 3.47 3.9-5.3/4.2-5.9 cm LVIDd Index: 1.63 2.4-3.2/2.2-3.1 cm/m2 LVIDs: 2.45 2.0-3.6 cm LVPWd: 1.42 0.7-1.1 cm LA Diam: 3.90 2.7-3.8/3.0-4.0 cm LAIDs Index: 1.83 1.5-2.3 cm/m2 LV Mass: 215.36 67-162/88-224 g LV Mass Index: 101.11 43-95/49-115 g/m2 LVOT Diam: 2.10 3.0+(-)1.3 cm Mitral Valve MV VTI: 0.30 MV Pk Markell: 0.90 MV Mn Markell: 0.56 MV Pk Grad: 3.00 MV Mn Grad: 2.00 MV Pk E: 0.85 MV PK A: 0.95 MV Decel Time: 196.00 E/A: 0.90 E'Lateral: 7.18 E'Medial: 6.20 E/E' Med: 13.70 E/E' Lat: 11.80 PHT: 57.00 MVA PHT: 3.86 MVA Continuity: 2.20 Decel Rosebud: 4.33 Aortic Valve AoV Pk Markell: 2.25 AoV Mn Markell: 1.54 AoV VTI: 0.43 AoV Pk Grad: 20.00 Aov Mn Grad: 11.00 MICHAEL Cont.VTI: 1.54 LVOT LVOT Pk Markell: 1.11 LVOT Mn Markell: 0.72 LVOT VTI: 0.19 LVOT Pk Grad: 5.00 LVOT Mn Grad: 3.00 LVOT Diam: 2.10 LVOT Area: 3.46 Diastolic Function MV Pk E: 0.85 MV Pk A: 0.95 E/A: 0.90 E'Medial: 6.20 E/E' Med: 13.70 E' Laterial: 7.18 E/E' Lat: 11.80 Right Ventricle TAPSE (mm): 22.90 Tricuspid Valve TR Pk Markell: 1.94 TR Pk Grad: 15.00 RA Press: 3.00 RVSP: 18.00 Great Vessels Aorta Sinus of Valsalva: 3.20 2.0-3.5 cm Ao Asc: 3.70 2.1-3.4 cm Pulmonary Valve PV Pk Markell: 0.95 Peak PV Grad: 4.00 Updated in Other Vendor System with Status of Final Saud Lane MD electronically signed on 05/07/2024 3:27:59 PM with status of Final
--- NOTE | 2024-05-07 07:30 | PC.NURSE ---
patient found by this RN in soiled sheets from prior shift, sheets had blood/urine/feces/ patient cleaned up by this RN, complete bed change, patient cleaned up. patient barron cath intact and in place. patient repositioned and sat up for breakfast.
[2024-05-07 07:33] LABS: Estimated Average Glucose 189 mg/dL; Hemoglobin A1C 243.1922 umol/L; Hemoglobin A1c % 8.2 % (<6.0); Total Hemoglobin (HGBA1C) 3662.5854 umol/L
[2024-05-07 07:35] LABS: Glucose, Whole Blood 185 mg/dL (60-115)
[2024-05-07] MEDS: Insulin Lispro 100 UNIT/ML 3 ML VIAL SUBCUT ×4 (07:37→21:55)
--- NOTE | 2024-05-07 09:10 | PM.IMHP ---
History of Present Illness Date of Service: 05/07/24 Attending physician on admission: Terence Cain Chief Complaint: fall, cough 84-year-old male with history of prostate cancer s/p radiation, [id number] type 2 diabetes presents to the ED late last night after sustaining a fall. The patient reports he was in bed and fell between the bed and the wall where he remained stuck for about 4 hours. He also states that for the last several days, has had an initially productive cough that is now dry, chills. Denies any fevers at home, sore throat, congestion, abdominal pain, nausea, vomiting, diarrhea, dysuria, hematuria, decreased urinary output, shortness of breath, palpitations, lightheadedness, or chest pains. He denies any known sick contacts. Reports he lives by himself. On arrival, patient was found to be in SVT with heart rate 156 and received 12, then 6 mg adenosine and upon rate slowing, showed atrial flutter but remains tachycardic in the 120s. On arrival, hematology studies appeared concentrated and repeat studies without any leukocytosis which showed a normocytic anemia with H/H 13.9/41.1%, platelets 122. On arrival, creatinine was 1.83 with a BUN 32, electrolyte levels normal with glucose of 326. Received 3 L IVF with improvement in creatinine to 1.43, BUN 29, electrolytes significant for chloride 114, CO2 18 and glucose improved to 229. Hemoglobin A1c measured at 8.2%. Initially total CK 1167, repeat 738 following IV fluids. Troponins flat. Beta hydroxybutyrate 1.16. The patient is positive for COVID-19 which appears to be a new diagnosis. Head CT negative for acute intracranial abnormality CT negative for acute osseous abnormality CXR negative for focal consolidation or acute cardiopulmonary abnormality. CT abdomen pelvis shows a chronic pancreatitis and enlarged fatty liver but no acute intra-abdominal abnormality or evidence of bleeding. Apparently, the patient was retaining urine and attempts at straight catheterization were made but failed and ultimately patient received Barron catheter due to acute urinary retention, drained 1 L urine and reportedly passed a large clot. Patient ultimately was not placed on CBI and is now draining clear yellow urine. In the ED received ceftriaxone, IV Tylenol, 3 L IVF, morphine and regular insulin. Review of Systems Review of Systems: Yes all other systems are reviewed and are negative PMFSH Medical History Status post radiation therapy Prostate cancer Type 2 diabetes mellitus Social History Patient Tobacco Use Status: Never used Tobacco Smoked in Last 30 Days: No Use of substances other than those prescribed or required for medical reasons: No Advance Directives: No Advance Directives Information Provided: Yes Do you have a plan to hurt others: No Plan Nutrition Risks: No Nutritional Risk service: Yes Meds Allergies Allergy/AdvReac Type Severity Reaction Status Date / Time No Known Allergies Allergy Verified 05/06/24 20:37 Active Medications: Current Medications Acetaminophen (Acetaminophen 325 Mg Tablet) 975 mg PO Q6H PRN PRN Reason: Pain, Mild (Pain Scale 1-3), fever or headache Glucose (Glucose Gel 15 Gm Gel..Gram.) 15 gm PO Q15M PRN; Protocol PRN Reason: per Hypoglycemia Standing Ord. Heparin Sodium (Porcine) (Heparin Sodium,Porcine 5,000 Unit/Ml Vial) 5,000 unit SUBCUT Q12H [facility] Dextrose (D10) 250 mls @ 750 mls/hr IV Q15M PRN; Protocol PRN Reason: per Hypoglycemia Standing Ord. Insulin Human Lispro (Insulin Lispro 100 Unit/Ml 3 Ml Vial) 0 unit SUBCUT QIDACHS [facility]; Protocol Last Admin: 05/07/24 07:37 Dose: 2 unit Sodium Chloride (0.9 % Sodium Chloride Flush 3 Ml Syringe) 3 ml IVFLUSH QSHIFT [facility] Last Admin: 05/07/24 08:49 Dose: Not Given Physical Exam Vital Signs and Narrative: Vital Signs: Last Vital Signs Temp 97.9 F 05/07/24 07:25 Pulse 120 H 05/07/24 07:25 Resp 14 05/07/24 07:25 BP 136/74 05/07/24 07:25 Pulse Ox 95 05/07/24 07:25 O2 Del Method Room Air 05/07/24 07:25 BMI result Body Mass Index 35.2 Constitutional - Awake and Alert, No apparent distress Eyes - PERRLA, EOMI Cardiovascular - S1S2, regular rhythm, tachycardic, No edema Respiratory - Normal lung expansion, Normal respiratory effort, No respiratory distress, CTA bilaterally Gastrointestinal - NT / ND; +BS; No rebound or guarding Extremities - no calf tenderness bilaterally, no swelling Skin - Warm/Dry Neurological - Alert & oriented x3 Psychological - Appropriate affect Results Labs 05/07/24 04:38 05/07/24 04:38 Labs: Laboratory Results - last 24 hr 05/06/24 05/06/24 05/06/24 20:43 21:05 21:05 MCV 91.4 MCH 31.5 MCHC 34.5 RDW 13.2 Plt Count 181 MPV 12.1 Immature Gran % (Auto) 0.3 Neut % (Auto) 73.6 H Lymph % (Auto) 10.3 L [place] % (Auto) 15.4 H Eos % (Auto) 0.0 Baso % (Auto) 0.4 Lymph # (Auto) 0.7 L [place] # (Auto) 1.1 Eos # (Auto) 0.0 Baso # (Auto) 0.0 Abs Immat Gran (auto) 0.02 Absolute Neuts (auto) 5.2 Absolute Nucleated RBC 0.000 Nucleated RBC % (auto) 0.0 PT 11.4 INR 1.0 Anion Gap Cancelled 17 Estim Creat Clear Calc Cancelled Estimated GFR POC Glucose 335 H Random Glucose Estimat Average Glucose Hemoglobin A1c % Lactic Acid Calcium Magnesium Total Bilirubin AST ALT Alkaline Phosphatase Total Creatine Kinase Troponin I High Sens B-Natriuretic Peptide Total Protein Albumin Beta-Hydroxybutyrate Influenza Type A (PCR) Influenza Type B (PCR) RSV RNA Qual (PCR) SARS-CoV-2 RNA (RT-PCR) 05/06/24 05/06/24 05/06/24 21:05 21:05 21:05 MCV MCH MCHC RDW Plt Count MPV Immature Gran % (Auto) Neut % (Auto) Lymph % (Auto) [place] % (Auto) Eos % (Auto) Baso % (Auto) Lymph # (Auto) [place] # (Auto) Eos # (Auto) Baso # (Auto) Abs Immat Gran (auto) Absolute Neuts (auto) Absolute Nucleated RBC Nucleated RBC % (auto) PT INR Anion Gap Estim Creat Clear Calc 34.8 Estimated GFR Cancelled 36 POC Glucose Random Glucose Cancelled 326 H Estimat Average Glucose Hemoglobin A1c % Lactic Acid Calcium Cancelled Magnesium Total Bilirubin AST ALT Alkaline Phosphatase Total Creatine Kinase Troponin I High Sens B-Natriuretic Peptide Total Protein Albumin Beta-Hydroxybutyrate Influenza Type A (PCR) Influenza Type B (PCR) RSV RNA Qual (PCR) SARS-CoV-2 RNA (RT-PCR) 05/06/24 05/06/24 05/06/24 21:05 21:05 21:05 MCV MCH MCHC RDW Plt Count MPV Immature Gran % (Auto) Neut % (Auto) Lymph % (Auto) [place] % (Auto) Eos % (Auto) Baso % (Auto) Lymph # (Auto) [place] # (Auto) Eos # (Auto) Baso # (Auto) Abs Immat Gran (auto) Absolute Neuts (auto) Absolute Nucleated RBC Nucleated RBC % (auto) PT INR Anion Gap Estim Creat Clear Calc Estimated GFR POC Glucose Random Glucose Estimat Average Glucose Hemoglobin A1c % Lactic Acid Calcium 9.1 Magnesium Cancelled 2.1 Total Bilirubin Cancelled 0.8 AST Cancelled ALT Alkaline Phosphatase Total Creatine Kinase Troponin I High Sens B-Natriuretic Peptide Total Protein Albumin Beta-Hydroxybutyrate Influenza Type A (PCR) Influenza Type B (PCR) RSV RNA Qual (PCR) SARS-CoV-2 RNA (RT-PCR) 05/06/24 05/06/24 05/06/24 21:05 21:05 21:05 MCV MCH MCHC RDW Plt Count MPV Immature Gran % (Auto) Neut % (Auto) Lymph % (Auto) [place] % (Auto) Eos % (Auto) Baso % (Auto) Lymph # (Auto) [place] # (Auto) Eos # (Auto) Baso # (Auto) Abs Immat Gran (auto) Absolute Neuts (auto) Absolute Nucleated RBC Nucleated RBC % (auto) PT INR Anion Gap Estim Creat Clear Calc Estimated GFR POC Glucose Random Glucose Estimat Average Glucose Hemoglobin A1c % Lactic Acid Calcium Magnesium Total Bilirubin AST 39 H ALT Cancelled 21 Alkaline Phosphatase Cancelled 90 Total Creatine Kinase 1167 H Troponin I High Sens 19.6 B-Natriuretic Peptide 28 Total Protein Cancelled Albumin Beta-Hydroxybutyrate Influenza Type A (PCR) Influenza Type B (PCR) RSV RNA Qual (PCR) SARS-CoV-2 RNA (RT-PCR) 05/06/24 05/06/24 05/06/24 21:05 21:05 21:05 MCV MCH MCHC RDW Plt Count MPV Immature Gran % (Auto) Neut % (Auto) Lymph % (Auto) [place] % (Auto) Eos % (Auto) Baso % (Auto) Lymph # (Auto) [place] # (Auto) Eos # (Auto) Baso # (Auto) Abs Immat Gran (auto) Absolute Neuts (auto) Absolute Nucleated RBC Nucleated RBC % (auto) PT INR Anion Gap Estim Creat Clear Calc Estimated GFR POC Glucose Random Glucose Estimat Average Glucose Hemoglobin A1c % Lactic Acid Calcium Magnesium Total Bilirubin AST ALT Alkaline Phosphatase Total Creatine Kinase Troponin I High Sens B-Natriuretic Peptide Total Protein 7.2 Albumin Cancelled 3.9 Beta-Hydroxybutyrate Cancelled 1.16 H Influenza Type A (PCR) Influenza Type B (PCR) RSV RNA Qual (PCR) SARS-CoV-2 RNA (RT-PCR) 05/06/24 05/06/24 05/06/24 21:06 21:31 21:44 MCV MCH MCHC RDW Plt Count MPV Immature Gran % (Auto) Neut % (Auto) Lymph % (Auto) [place] % (Auto) Eos % (Auto) Baso % (Auto) Lymph # (Auto) [place] # (Auto) Eos # (Auto) Baso # (Auto) Abs Immat Gran (auto) Absolute Neuts (auto) Absolute Nucleated RBC Nucleated RBC % (auto) PT INR Anion Gap Estim Creat Clear Calc Estimated GFR POC Glucose 302 H Random Glucose Estimat Average Glucose Hemoglobin A1c % Lactic Acid 2.3 H* Calcium Magnesium Total Bilirubin AST ALT Alkaline Phosphatase Total Creatine Kinase Troponin I High Sens B-Natriuretic Peptide Total Protein Albumin Beta-Hydroxybutyrate Influenza Type A (PCR) NEGATIVE Influenza Type B (PCR) NEGATIVE RSV RNA Qual (PCR) NEGATIVE SARS-CoV-2 RNA (RT-PCR) POSITIVE A 05/07/24 05/07/24 05/07/24 00:12 04:38 07:24 MCV 93.6 MCH 31.7 MCHC 33.8 RDW 13.4 Plt Count 122 L D MPV 12.2 Immature Gran % (Auto) Neut % (Auto) Lymph % (Auto) [place] % (Auto) Eos % (Auto) Baso % (Auto) Lymph # (Auto) [place] # (Auto) Eos # (Auto) Baso # (Auto) Abs Immat Gran (auto) Absolute Neuts (auto) Absolute Nucleated RBC 0.000 Nucleated RBC % (auto) 0.0 PT INR Anion Gap 11 L Estim Creat Clear Calc 44.5 Estimated GFR 47 POC Glucose 185 H Random Glucose 229 H Estimat Average Glucose 189 Hemoglobin A1c % 8.2 H Lactic Acid 1.6 Calcium 8.0 L D Magnesium 2.0 Total Bilirubin AST ALT Alkaline Phosphatase Total Creatine Kinase 738 H Troponin I High Sens 25.1 B-Natriuretic Peptide Total Protein Albumin Beta-Hydroxybutyrate Influenza Type A (PCR) Influenza Type B (PCR) RSV RNA Qual (PCR) SARS-CoV-2 RNA (RT-PCR) Imaging Radiologist's Impressions: Impressions Cervical Spine CT 05/06/24 21:37 IMPRESSION: No acute intracranial pathology. No acute fracture subluxation cervical spine. Chest one view: No focal lesion. Heart and mediastinal normal. Lungs clear. No pleural disease. No ectopic air. IMPRESSION: No active chest disease. Electronically signed by: Tarun Ma MD 05/06/2024 11:02 PM EDT RP Chest X-Ray 05/06/24 21:50 IMPRESSION: No acute intracranial pathology. No acute fracture subluxation cervical spine. Chest one view: No focal lesion. Heart and mediastinal normal. Lungs clear. No pleural disease. No ectopic air. IMPRESSION: No active chest disease. Electronically signed by: Tarun Ma MD 05/06/2024 11:02 PM EDT RP Head CT 05/06/24 21:50 IMPRESSION: No acute intracranial pathology. No acute fracture subluxation cervical spine. Chest one view: No focal lesion. Heart and mediastinal normal. Lungs clear. No pleural disease. No ectopic air. IMPRESSION: No active chest disease. Electronically signed by: Tarun Ma MD 05/06/2024 11:02 PM EDT RP Abdomen/Pelvis CT 05/06/24 22:47 IMPRESSION: 1. A there is no evidence of intra-abdominal bleeding. 2. Incidental note made of an enlarged fatty liver, chronic pancreatitis, degenerative changes in the spine and other findings described above. Fleischner guidelines were followed. Electronically signed by: Duke Carrasco MD 05/07/2024 12:45 AM EDT RP Assessment and Plan (1) New onset atrial flutter: Status: Acute (2) Rhabdomyolysis: Status: Acute (3) MARCELLO (acute kidney injury): Status: Acute (4) COVID: Status: Acute Plan 84-year-old male with history of prostate cancer s/p radiation, [id number] type 2 diabetes admitted for COVID 19 with MARCELLO and rhabdomyelysis with new onset svt/aflutter #New onset SVT/atrial flutter- now sinus tachycardia -On arrival, SVT in the 150s, rate slowed to 120s with 12mg then 6mg IV adenosine revealing rapid aflutter -CHADS2 Vasc score 3. Initiate eliquis 5mg BID. No contraindications to AC -Initiate metoprolol 25mg BID -Cardiology consult -Cardiac monitoring -echo -admit to med/tele #Acute rhabodomyolysis with Acute kidney injury -Following fall between bed and wall, stuck x4 hours -Creat 1.86 on arrrival, improved to 1.4 -CK 1100 --> 700 -Continue IVF with LR @100ml/hr -avoid nephrotoxins -follow renal function/lytes, trend ck #COVID-19 -no hypoxia or pneumonia. NO abx or steroids indicated -symptomatic management -airborne/droplet precautions #Weakness -r/t above -pt eval #Acute urinary retention -reportedly had 1 ashlee clot but likely trauamtic from multiple failed straight cath attempts. No recurrence. CBI not indicated -continue barron -urology consult #SIRS -tachycardia and tachypnea due to svt/flutter- not sepsis #Non insulin dependent type 2 diabetes -poc glucose, diabetic diet -Hgb A1c 8.2%, goal <8.0% given age -admelog SS dvt prophylaxis- eliquis full code pt requires inpt stay at least 2 midnights for management of marcello/rhabdo requiring ivf and new onset svt/aflutter requiring cardiac monitoring and expert consulation and will ultimately require pt eval to evaluate for safe dispo given significant weakness r/t the former along with covid 19 Quality Stroke Does the patient have a stroke diagnosis?: No VTE Prior VTE?: No VTE Risk Level:: Medical - moderate - high VTE Device Contraindication: Treatment Not Indicated VTE Drug Contraindication: N/A - Med Ordered
--- NOTE | 2024-05-07 10:03 | MHC.CM.PN ---
Addendum entered by Paola Gamez 05/07/24 12:52: Per [facility] at [place], [facility]. Original Note: Attempted to meet with patient in regards to d/c planning. Patient currently sleeping. No family present. Will attempt to meet again. Continue to monitor for d/c needs.
--- NOTE | 2024-05-07 10:07 | MHC.CM.PN ---
Met with patient in regards to discharge planning. Patient is hard of hearing at baseline. Patient lives with his sig other, ambulates with a rollator and has snf services for medication management. Patient does not remember the nursing agency name. Patient's PCP is through the [place]. Patient does not remember PCP's name. [facility] IMM explained and signed. Patient states he has never been to STR and does not feel it will be needed when medically stable. Physical therapy eval for home safety may be needed. T/W attempted to speak to [facility] [place] transitions of careers counsellor. Waiting for a call back to confirm VNA agency, PCP and to see if patient is [facility]. Continue to monitor for d/c needs.
[2024-05-07] MEDS: Lactated Ringers 1,000 ML 100 ML IVCONT ×2 (10:30→21:57)
[2024-05-07] MEDS: Metoprolol Tartrate 25 MG TABLET PO ×2 (10:31→21:55)
[2024-05-07] MEDS: Acetaminophen 325 MG TABLET 975 MG PO ×2 (10:31→22:16)
[2024-05-07] MEDS: methylPREDNISolone Sod Succ 40 MG/ML VIAL IVPUSH ×2 (10:31→21:55)
[2024-05-07 12:20] LABS: Glucose, Whole Blood 275 mg/dL (60-115)
--- NOTE | 2024-05-07 12:48 | MHC.CM.PN ---
Met with patient in regards to discharge planning. Patient is hard of hearing at baseline. Patient lives with his sig other, ambulates with a rollator and has prison services for medication management. Patient does not remember the nursing agency name. Patient's PCP is through the [place]. Patient does not remember PCP's name. [facility] IMM explained and signed. Patient states he has never been to STR and does not feel it will be needed when medically stable. Physical therapy eval for home safety may be needed. Patient is currently on oxygen but does not use it at baseline. Spoke with Jaelyn of [place]. Jaelyn confirms patient's PCP is David CANALES. Patient is eligible for STR/LTC through the [place].. Jaelyn also confirms patient receives [employer] care through [facility] in [place]. Not able to locate a VNA on file for patient. T/W attempted to speak to Annabel[facility] [place] transitions of care transition mgr. Waiting for a call back to confirm VNA agency, PCP and to see if patient is [facility]. Continue to monitor for d/c needs.
--- NOTE | 2024-05-07 13:45 | P.CNUR_ITS ---
History of Present Illness Consult details Consult date: 05/07/24 Narrative: CC: Urinary retention 84-year-old male Prior history of prostate cancer treated with external beam radiation, type 2 diabetic Presented through emergency room after fall where he had been stuck for a number of hours Had productive cough previously for past few days at Arrived ER showing atrial flutter and tachycardic Creatinine 1.8 with BUN of 32 IV hydration was performed HBA1c 8.2 Patient reported difficulty with urination. Attempt made at straight catheterization was unsuccessful. Givens catheter was placed in 1 L was drained. Recommend initiation of alpha-petar and finasteride Stopped trospium Catheter will need to remain for 2-3 weeks Teach patient how to use Givens catheter cap and to empty every 3-4 hours Outpatient voiding trial Review of Systems 2 Constitutional: Constitutional: Reports as per HPI and Reports no additional constitutional complaints Cardiovascular: Cardiovascular: Reports as per HPI and Reports no additional cardiovascular complaints Respiratory: Respiratory: Reports as per HPI and Reports no additional respiratory complaints Gastrointestinal: Gastrointestinal: Reports as per HPI and Reports no additional gastrointestinal complaints Genitourinary: Genitourinary: Reports as per HPI Musculoskeletal: Musculoskeletal: Reports no additional musculoskeletal complaints and Reports as per HPI Neurologic: Reports system reviewed and no additional complaints, except as documented and Reports as per HPI PMFSH Past Medical History Medical History Status post radiation therapy Prostate cancer Type 2 diabetes mellitus Social History Social History Patient Tobacco Use Status: Never used Tobacco Smoked in Last 30 Days: No Use of substances other than those prescribed or required for medical reasons: No Advance Directives: No Advance Directives Information Provided: Yes Do you have a plan to hurt others: No Plan Nutrition Risks: No Nutritional Risk service: Yes Meds Allergies Allergy/AdvReac Type Severity Reaction Status Date / Time No Known Allergies Allergy Verified 05/06/24 20:37 Active Medications: Current Medications Acetaminophen (Acetaminophen 325 Mg Tablet) 975 mg PO Q6H PRN PRN Reason: Pain, Mild (Pain Scale 1-3), fever or headache Last Admin: 05/07/24 10:31 Dose: 975 mg Apixaban (Apixaban 5 Mg Tablet) 5 mg PO BID ASHVIN Stop: 05/14/24 09:01 Glucose (Glucose Gel 15 Gm Gel..Gram.) 15 gm PO Q15M PRN; Protocol PRN Reason: per Hypoglycemia Standing Ord. Dextrose (D10) 250 mls @ 750 mls/hr IV Q15M PRN; Protocol PRN Reason: per Hypoglycemia Standing Ord. Lactated Ringer's (Lr) 1,000 mls @ 100 mls/hr IVCONT .Q10H [facility] Last Admin: 05/07/24 10:30 Dose: 100 mls/hr Insulin Human Lispro (Insulin Lispro 100 Unit/Ml 3 Ml Vial) 0 unit SUBCUT QIDACHS [facility]; Protocol Last Admin: 05/07/24 07:37 Dose: 2 unit Methylprednisolone Sodium Succinate (Methylprednisolone Sod Succ 40 Mg/Ml Vial) 40 mg IVPUSH Q12H [facility] Last Admin: 05/07/24 10:31 Dose: 40 mg Metoprolol Tartrate (Metoprolol Tartrate 25 Mg Tablet) 25 mg PO BID [facility]; Protocol Last Admin: 05/07/24 10:31 Dose: 25 mg Sodium Chloride (0.9 % Sodium Chloride Flush 3 Ml Syringe) 3 ml IVFLUSH QSHIFT [facility] Last Admin: 05/07/24 08:49 Dose: Not Given Home Medications ?Medication ?Instructions ?Recorded ?Confirmed ?Last Taken ?Type atorvastatin 80 mg tablet 80 mg PO DAILY 05/07/24 05/07/24 Unknown History carbamide peroxide 6.5 % ear drops 5 drp otic (ears) DAILY 05/07/24 05/07/24 Unknown History carboxymethylcellulose sodium 0.5 1 drp ophthalmic (eye) QID 05/07/24 05/07/24 Unknown History % eye drops finasteride 5 mg tablet 5 mg PO BEDTIME 05/07/24 05/07/24 Unknown History insulin aspart U-100 100 unit/mL 24 unit subcut DAILY@1200 05/07/24 05/07/24 Unknown History (3 mL) subcutaneous pen (Novolog FlexPen U-100 Insulin aspart) insulin aspart U-100 100 unit/mL 25 unit subcut DAILY 05/07/24 05/07/24 Unknown History (3 mL) subcutaneous pen (Novolog FlexPen U-100 Insulin aspart) insulin aspart U-100 100 unit/mL 100 unit subcut DAILY@1700 05/07/24 05/07/24 Unknown History (3 mL) subcutaneous pen (Novolog FlexPen U-100 Insulin aspart) insulin glargine-yfgn 100 unit/mL 58 unit subcut DAILY 05/07/24 Unknown History (3 mL) subcutaneous pen lisinopril 5 mg tablet 5 mg PO DAILY 05/07/24 05/07/24 Unknown History metformin 500 mg tablet 500 mg PO DAILY 05/07/24 05/07/24 Unknown History multivitamin 1 tab PO DAILY 05/07/24 05/07/24 Unknown History trospium 20 mg tablet 20 mg PO BID 05/07/24 05/07/24 Unknown History Physical Exam 2 Vital Signs: Vital Signs: Last Vital Signs Temp 97.9 F 05/07/24 07:25 Pulse 124 H 05/07/24 10:31 Resp 14 05/07/24 07:25 BP 124/70 05/07/24 10:31 Pulse Ox 95 05/07/24 07:25 O2 Del Method Room Air 05/07/24 07:25 BMI result Body Mass Index 35.2 Const: General: cooperative, healthy appearing, comfortable and no acute distress Orientation/consciousness: patient oriented x3 HEENT: Face and sinus: Yes normal facial exam Mouth: moist mucous membranes Neck: Neck: Yes normal visual inspection, Yes full ROM and Yes trachea midline Chest: Chest palpation & inspection: normal inspection of the chest Resp: Effort & Inspection: normal respiratory effort, able to speak in complete sentences and no respiratory distress GI: Inspection: Yes normal to inspection Back/Spine/Pelvis: Cervical Spine: normal cervical lordosis Thoracic/Lumbar Spine: thoracic and lumbar spine normal to inspection Skin: General skin exam: no rashes or lesions noted Neuro: General: patient oriented x3, tone normal and moves all extremities Extrem: General: Yes normal to inspection and Yes capillary refill normal Results Labs 05/07/24 04:38 05/07/24 04:38 Labs: Abnormal lab results 05/06/24 05/06/24 05/06/24 Range/Units 20:43 21:05 21:06 RBC (4.60-5.80) X10*6/uL Hgb (14.0-18.0) g/dl Hct (42.0-52.0) % Plt Count (160-400) X10*3/uL Neut % (Auto) 73.6 H (45-73) % Lymph % (Auto) 10.3 L (20-40) % Camp % (Auto) 15.4 H (2-11) % Lymph # (Auto) 0.7 L (1.2-4.9) X10*3/uL Chloride (96-108) mmol/L Carbon Dioxide (22-29) mmol/L Anion Gap (12-20) BUN 32 H (9-16) mg/dL Creatinine 1.83 H (0.5-1.4) mg/dL POC Glucose 335 H (60-115) mg/dL Random Glucose 326 H (60-115) mg/dL Hemoglobin A1c % (<6.0) % Lactic Acid (0.5-2.0) mmol/L Calcium (8.4-10.2) mg/dL AST 39 H (5-37) U/L Total Creatine Kinase 1167 H (38-174) U/L Beta-Hydroxybutyrate 1.16 H (0.02-0.27) mmol/L SARS-CoV-2 RNA (RT-PCR) POSITIVE A (Negative) 05/06/24 05/06/24 05/07/24 Range/Units 21:31 21:44 04:38 RBC 4.39 L (4.60-5.80) X10*6/uL Hgb 13.9 L (14.0-18.0) g/dl Hct 41.1 L (42.0-52.0) % Plt Count 122 L D (160-400) X10*3/uL Neut % (Auto) (45-73) % Lymph % (Auto) (20-40) % Camp % (Auto) (2-11) % Lymph # (Auto) (1.2-4.9) X10*3/uL Chloride 114 H (96-108) mmol/L Carbon Dioxide 18 L (22-29) mmol/L Anion Gap 11 L (12-20) BUN 29 H (9-16) mg/dL Creatinine 1.43 H (0.5-1.4) mg/dL POC Glucose 302 H (60-115) mg/dL Random Glucose 229 H (60-115) mg/dL Hemoglobin A1c % 8.2 H (<6.0) % Lactic Acid 2.3 H* (0.5-2.0) mmol/L Calcium 8.0 L D (8.4-10.2) mg/dL AST (5-37) U/L Total Creatine Kinase 738 H (38-174) U/L Beta-Hydroxybutyrate (0.02-0.27) mmol/L SARS-CoV-2 RNA (RT-PCR) (Negative) 05/07/24 05/07/24 Range/Units : 12:17 RBC (4.60-5.80) X10*6/uL Hgb (14.0-18.0) g/dl Hct (42.0-52.0) % Plt Count (160-400) X10*3/uL Neut % (Auto) (45-73) % Lymph % (Auto) (20-40) % Camp % (Auto) (2-11) % Lymph # (Auto) (1.2-4.9) X10*3/uL Chloride (96-108) mmol/L Carbon Dioxide (22-29) mmol/L Anion Gap (12-20) BUN (9-16) mg/dL Creatinine (0.5-1.4) mg/dL POC Glucose 185 H 275 H (60-115) mg/dL Random Glucose (60-115) mg/dL Hemoglobin A1c % (<6.0) % Lactic Acid (0.5-2.0) mmol/L Calcium (8.4-10.2) mg/dL AST (5-37) U/L Total Creatine Kinase (38-174) U/L Beta-Hydroxybutyrate (0.02-0.27) mmol/L SARS-CoV-2 RNA (RT-PCR) (Negative) Short CBC 05/06/24 05/07/24 Range/Units 21:05 04:38 WBC 7.1 5.7 (4.8-10.8) X10*3/uL Hgb 15.7 13.9 L (14.0-18.0) g/dl Hct 45.5 41.1 L (42.0-52.0) % Plt Count 181 122 L D (160-400) X10*3/uL BMP 05/06/24 05/06/24 05/06/24 21:05 21:05 21:05 Sodium Cancelled 137 Potassium Cancelled 4.5 Chloride Cancelled Carbon Dioxide BUN Creatinine Calcium 1005/06/24 05/06/24 21:05 21:05 21:05 Sodium Potassium Chloride 103 Carbon Dioxide Cancelled 22 BUN Cancelled 32 H Creatinine Cancelled Calcium 05/06/24 05/06/24 05/07/24 21:05 21:05 04:38 Sodium 139 Potassium 4.1 Chloride 114 H Carbon Dioxide 18 L BUN 29 H Creatinine 1.83 H 1.43 H Calcium Cancelled 9.1 8.0 L D Cardiac Enzymes 05/06/24 05/07/24 Range/Units 21:05 04:38 Total Creatine Kinase 1167 H 738 H (38-174) U/L Liver Function 05/06/24 05/06/24 05/06/24 Range/Units 21:05 21:05 21:05 Total Bilirubin Cancelled 0.8 AST Cancelled 39 H ALT Cancelled Alkaline Phosphatase Albumin 05/06/24 05/06/24 05/06/24 Range/Units 21:05 21:05 21:05 Total Bilirubin AST ALT 21 Alkaline Phosphatase Cancelled 90 Albumin Cancelled 3.9 All other labs normal. Assessment and Plan (1) Urinary retention with incomplete bladder emptying: Status: Acute (2) MARCELLO (acute kidney injury): Status: Acute Plan Givens catheter in place Optimize medications - stop anticholinergic, continue finasteride, start tamsulosin Outpatient voiding trial in 2 weeks Procedures Date of Service Date of Service: 05/07/24
--- NOTE | 2024-05-07 15:07 | PHA.MEDREC ---
Addendum entered by Nathaly Ochoa RPh 05/07/24 15:38: reviewed by [facility]. Original Note: Pharmacy Consult ? Medication Reconciliation Pharmacy has completed the medication reconciliation. Confirmed medications with list Faxed from [facility].
[2024-05-07 17:00] LABS: Glucose, Whole Blood 386 mg/dL (60-115)
--- NOTE | 2024-05-07 17:14 | PC.NURSE ---
[facility] inpatient aware of poc
[2024-05-07] MEDS: Finasteride 5 MG TABLET PO (21:55)
[2024-05-07] MEDS: Apixaban 5 MG TABLET PO (21:55)
[2024-05-07] MEDS: 0.9 % Sodium Chloride Flush 3 ML SYRINGE IVFLUSH (21:56)
[2024-05-07] MEDS: Insulin Glargine,Hum.rec.anlog 100 UNIT/ML 10 ML VIAL 40 UNIT SUBCUT (21:56)
[2024-05-07 21:58] LABS: Glucose, Whole Blood 412 mg/dL (60-115)
[2024-05-08] VITALS: BP 130/61; PULSE 62; RESP 20; TEMP 36.7; O2SAT 93
[2024-05-08 04:00] VITALS: BP 130/66; PULSE 68; RESP 20; TEMP 36.6; O2SAT 90
--- NOTE | 2024-05-08 04:00 | PC.NURSE ---
Addendum entered by Rani Gillespie RN 05/08/24 05:55: Pt allowed this RN and TERRA COTTA MASON to look at skin. Redness in groin area, barrier cream applied. Skin intact. Original Note: Pt arrived to floor from ED via stretcher. He and son educated about safety measures and hospital environment. Pt diagnosed w/Covid, educated about precautions/PPE and the need for a mask if he leaves the room for testing. Pt stated understanding. He is AOx4, able to make his needs known. Pt is [place]. Son was bedside initially and stated my dad doesn't have his hearing aides with him . Pt under care of urology, barron catheter placed in ED for retention. Pt did state it was tender/had some pain, see MAR for med administration. Pt declined skin check, stated his skin is fine, he has no concerns about it. Call gonzalez within reach, bed alarm on.
[2024-05-08 05:02] LABS: Appearance Urine Cloudy; Color Urine Yellow; Glucose Urine UA >=1000 mg/dL (Negative); Leukocyte Esterase Urine Negative (Negative); Nitrite Urine Negative (Negative); Specific Gravity - Urine >= 1.030 (1.005-1.025); UMIC TRIGGER UACC YES; Urine Blood Large (3+) (Negative); Urine Ketones Negative (Negative); Urine Protein 30 (1+) mg/dL (Neg-Trace)
[2024-05-08 05:09] LABS: Bacteria Urine None Seen (None Seen); Hyaline Casts Urine 0-2 /LPF (0-2); Other Crystals Urine Present; RBC Urine >20 /HPF (0-2); Squamous Epithelial Cell Urine 0-2 /HPF (0-2); WBC Urine 0-5 /HPF (0-5)
[2024-05-08 05:19] LABS: Amphetamine Screen Urine Not Detected (Not Detect); Barbiturates, Urine Not Detected (Not Detect); Benzodiazepines Screen Urine Not Detected (Not Detect); Buprenorphine Scr Not Detected (Not Detect); Cannabinoid Screen Urine Not Detected (Not Detect); Cocaine Screen Urine Not Detected (Not Detect); Fentanyl, urine Not Detected (Not Detect); Methadone Screen, Urine Not Detected (Not Detect); Opiate Screen Urine POSITIVE (Not Detect); Oxycodone Screen Urine Not Detected (Not Detect); Phencyclidine Screen Urine Not Detected (Not Detect)
[2024-05-08 05:42] VITALS: BMI 33.6
[2024-05-08 07:16] VITALS: BP 135/67; PULSE 77; RESP 20; TEMP 36.4; O2SAT 92
[2024-05-08 08:07] LABS: Glucose, Whole Blood 272 mg/dL (60-115)
[2024-05-08] MEDS: Atorvastatin Calcium 80 MG TABLET PO (08:39)
[2024-05-08] MEDS: lisinopriL 5 MG TABLET PO (08:39)
[2024-05-08] MEDS: Multivitamin TABLET 1 TAB PO (08:39)
[2024-05-08] MEDS: Apixaban 5 MG TABLET PO ×2 (08:39→21:22)
[2024-05-08] MEDS: Insulin Lispro 100 UNIT/ML 3 ML VIAL SUBCUT ×4 (08:40→21:22)
[2024-05-08] MEDS: Metoprolol Tartrate 25 MG TABLET PO ×2 (08:40→21:21)
[2024-05-08] MEDS: 0.9 % Sodium Chloride Flush 3 ML SYRINGE IVFLUSH ×3 (08:55→21:24)
--- NOTE | 2024-05-08 09:52 | PM.CNCAR ---
History of Present Illness History of Present Illness Date of Service: 05/08/24 Requesting physician: Jodi Perez Consult reason: other (Paroxysmal atrial flutter) Chief complaint: MARCELLO, covid, urinary retention, SVT, rhadomyolysis Narrative: I was consulted to see Carl in cardiology consultation today. He is a pleasant 84-year-old male with prior history of hypertension, diabetes came to the hospital because he could not get up after he fell off the bed and was stuck between his furniture in the bed and was almost for 4 hours not able to get up. He subsequently call his daughter via [employer] message in who sent paramedics to her home and then who subsequently brought him here. When he came in here he was noted on rapid heart rate initially felt to be SVT, after slowing down was suggestive of atrial flutter. Subsequently converted to sinus rhythm. Overnight has remained in sinus rhythm with PACs he said he had no symptoms whatsoever with fast heart rate when he was having this tachycardia. He said he has never been diagnose in the past with atrial fibrillation and flutter but as heart about it. He said he was struggling quite a bit yesterday trying to get up from being in the position he was in. He also recently had contact with personally takes care of who had COVID. He had cough. He was COVID positive when he came in. Was also noted to have MARCELLO and rhabdomyolysis. With IV fluid his creatinine has improved and CK has been downtrending. He also developed urinary retention that required catheter currently complaining of burning at the tip of his penis when he tries to pass urine. He denies any prior cardiovascular events such as myocardial infarction or CAD or stroke. Echocardiogram yesterday shows normal LV ejection fraction with moderate LVH. He does say that he does snore and has daytime somnolence but never been diagnose with sleep apnea. Review of Systems Constitutional: Constitutional: Reports snoring, Reports weakness and Reports other (Fall) Eyes: Eyes: Reports no additional eye complaints Cardiovascular: Cardiovascular: Reports no additional cardiovascular complaints Respiratory: Respiratory: Reports cough and Reports snoring Gastrointestinal: Gastrointestinal: Reports no additional gastrointestinal complaints Genitourinary: Genitourinary: Reports no additional male genitourinary complaints Musculoskeletal: Musculoskeletal: Reports no additional musculoskeletal complaints Neurologic: Reports system reviewed and no additional complaints, except as documented and Reports weakness Psychiatric: Psychiatric: Reports no additional psychiatric complaints Hematologic/Lymphatic: Hematologic/Lymphatic: Reports no additional hematologic/lymphatic complaints Allergic/Immunologic: Allergic/Immunologic: Reports no additional allergic/immunologic complaints [facility] Past Medical History Medical History Status post radiation therapy Prostate cancer Type 2 diabetes mellitus Social History Social History Household Members: None Housing: House Do you presently have visiting nurse or other home services: No Patient Tobacco Use Status: Never used Tobacco service: Yes Meds Allergies Allergy/AdvReac Type Severity Reaction Status Date / Time No Known Allergies Allergy Verified 05/06/24 20:37 Active Medications: Current Medications Acetaminophen (Acetaminophen 325 Mg Tablet) 975 mg PO Q6H PRN PRN Reason: Pain, Mild (Pain Scale 1-3), fever or headache Last Admin: 05/07/24 22:16 Dose: 975 mg Apixaban (Apixaban 5 Mg Tablet) 5 mg PO BID ASHVIN Stop: 05/14/24 09:01 Last Admin: 05/08/24 08:39 Dose: 5 mg Artificial Tears (Artificial Tears 15 Ml Drops) 1 drop EYE-BOTH QID PRN PRN Reason: dry eyes Atorvastatin Calcium (Atorvastatin Calcium 80 Mg Tablet) 80 mg PO DAILY [facility] Last Admin: 05/08/24 08:39 Dose: 80 mg Carbamide Peroxide (Carbamide Peroxide 6.5% Otic 15 Ml Drpbtl) 5 drop EAR-BOTH DAILY ASHVIN Finasteride (Finasteride 5 Mg Tablet) 5 mg PO BEDTIME [facility] Last Admin: 05/07/24 21:55 Dose: 5 mg Glucose (Glucose Gel 15 Gm Gel..Gram.) 15 gm PO Q15M PRN; Protocol PRN Reason: per Hypoglycemia Standing Ord. Dextrose (D10) 250 mls @ 750 mls/hr IV Q15M PRN; Protocol PRN Reason: per Hypoglycemia Standing Ord. Lactated Ringer's (Lr) 1,000 mls @ 100 mls/hr IVCONT .Q10H ASHVIN Last Admin: 05/07/24 21:57 Dose: 100 mls/hr Insulin Glargine (Insulin Glargine,Hum.Rec.Anlog 100 Unit/Ml 10 Ml Vial) 40 unit SUBCUT BEDTIME ASHVIN Last Admin: 05/07/24 21:56 Dose: 40 unit Insulin Human Lispro (Insulin Lispro 100 Unit/Ml 3 Ml Vial) 0 unit SUBCUT QIDACHS [facility]; Protocol Last Admin: 05/08/24 08:40 Dose: 6 unit Lisinopril (Lisinopril 5 Mg Tablet) 5 mg PO DAILY [facility]; Protocol Last Admin: 05/08/24 08:39 Dose: 5 mg Methylprednisolone Sodium Succinate (Methylprednisolone Sod Succ 40 Mg/Ml Vial) 40 mg IVPUSH Q12H [facility] Last Admin: 05/07/24 21:55 Dose: 40 mg Metoprolol Tartrate (Metoprolol Tartrate 25 Mg Tablet) 25 mg PO BID [facility]; Protocol Last Admin: 05/08/24 08:40 Dose: 25 mg Multivitamins/Vitamin C (Multivitamin Tablet) 1 tab PO DAILY [facility] Last Admin: 05/08/24 08:39 Dose: 1 tab Non-Formulary Medication (Trospium) 20 mg PO BID [facility] Sodium Chloride (0.9 % Sodium Chloride Flush 3 Ml Syringe) 3 ml IVFLUSH QSHIFT [facility] Last Admin: 05/08/24 08:55 Dose: 3 ml Home Medications ?Medication ?Instructions ?Recorded ?Confirmed ?Last Taken ?Type atorvastatin 80 mg tablet 80 mg PO DAILY 05/07/24 05/07/24 Unknown History carbamide peroxide 6.5 % ear drops 5 drp otic (ears) DAILY 05/07/24 05/07/24 Unknown History carboxymethylcellulose sodium 0.5 1 drp ophthalmic (eye) QID 05/07/24 05/07/24 Unknown History % eye drops finasteride 5 mg tablet 5 mg PO BEDTIME 05/07/24 05/07/24 Unknown History insulin aspart U-100 100 unit/mL 24 unit subcut DAILY@1200 05/07/24 05/07/24 Unknown History (3 mL) subcutaneous pen (Novolog FlexPen U-100 Insulin aspart) insulin aspart U-100 100 unit/mL 25 unit subcut DAILY 05/07/24 05/07/24 Unknown History (3 mL) subcutaneous pen (Novolog FlexPen U-100 Insulin aspart) insulin aspart U-100 100 unit/mL 100 unit subcut DAILY@1700 05/07/24 05/07/24 Unknown History (3 mL) subcutaneous pen (Novolog FlexPen U-100 Insulin aspart) insulin glargine-yfgn 100 unit/mL 58 unit subcut DAILY 05/07/24 Unknown History (3 mL) subcutaneous pen lisinopril 5 mg tablet 5 mg PO DAILY 05/07/24 05/07/24 Unknown History metformin 500 mg tablet 500 mg PO DAILY 05/07/24 05/07/24 Unknown History multivitamin 1 tab PO DAILY 05/07/24 05/07/24 Unknown History trospium 20 mg tablet 20 mg PO BID 05/07/24 05/07/24 Unknown History Physical Exam Vital Signs: Vital Signs: Last Vital Signs Temp 97.6 F 05/08/24 07:16 Pulse 77 05/08/24 07:16 Resp 20 05/08/24 07:16 BP 135/67 05/08/24 07:16 Pulse Ox 92 05/08/24 07:16 O2 Del Method Room Air 05/08/24 07:16 BMI result Body Mass Index 33.6 Const: General: cooperative, comfortable, no acute distress, alert and awake Nutritional Appearance: obese Orientation/consciousness: patient oriented x3 Limitations: no limitations HEENT: Head: Yes normocephalic and Yes atraumatic Neck: Neck: Yes trachea midline, Yes supple and Yes no JVD Resp: Effort & Inspection: normal respiratory effort Auscultation: clear to auscultation bilaterally and diminished lung sounds Cardio: Jugular venous distension: no JVD Palpation: normal PMI Rate: regular rate Rhythm: regular rhythm Heart sounds: S1 normal heart sound present, S2 normal heart sound present, no click, no gallops, no murmurs and no rubs GI: Auscultation: normal bowel sounds Skin: General skin exam: no rashes or lesions noted Neuro: General: patient oriented x3 and no focal motor deficits Extrem: General: Yes no clubbing, cyanosis or edema Objective Labs and Meds 05/07/24 04:38 05/07/24 04:38 Lab results: Laboratory Results - last 24 hr 05/07/24 05/07/24 05/07/24 12:17 16:57 21:44 POC Glucose 275 H 386 H* 412 H* Urine Color Urine Appearance Urine pH Ur Specific Dalton Urine Protein Urine Glucose (UA) Urine Ketones Urine Blood Urine Nitrite Ur Leukocyte Esterase Urine RBC Urine WBC Ur Squamous Epith Cells Other Crystals Urine Bacteria Hyaline Casts Urine Opiates Screen Ur Buprenorphine Scrn Ur Oxycodone Screen Urine Methadone Screen Urine Fentanyl Screen Ur Barbiturates Screen Ur Phencyclidine Scrn Ur Amphetamines Screen U Benzodiazepines Scrn Urine Cocaine Screen U Marijuana (THC) Screen 05/08/24 05/08/24 04:30 07:54 POC Glucose 272 H Urine Color Yellow Urine Appearance Cloudy Urine pH 5.0 Ur Specific Dalton >= 1.030 H Urine Protein 30 (1+) H Urine Glucose (UA) >=1000 H Urine Ketones Negative Urine Blood Large (3+) H Urine Nitrite Negative Ur Leukocyte Esterase Negative Urine RBC >20 H Urine WBC 0-5 Ur Squamous Epith Cells 0-2 Other Crystals Present Urine Bacteria None Seen Hyaline Casts 0-2 Urine Opiates Screen POSITIVE H Ur Buprenorphine Scrn Not Detected Ur Oxycodone Screen Not Detected Urine Methadone Screen Not Detected Urine Fentanyl Screen Not Detected Ur Barbiturates Screen Not Detected Ur Phencyclidine Scrn Not Detected Ur Amphetamines Screen Not Detected U Benzodiazepines Scrn Not Detected Urine Cocaine Screen Not Detected U Marijuana (THC) Screen Not Detected Assessment and Plan (1) Paroxysmal atrial flutter: Status: Acute Paroxysmal atrial flutter converted to sinus rhythm spontaneously with rate control. Most likely induced by his acute medical illness as well as stress of trying to get up from a fall in position for 4 hours. Agree with oral anticoagulation therapy given CHADSVASc score of at least 4 with echo showing moderate LVH and at risk for recurrent atrial flutter in the future. He also most likely has underlying sleep apnea which will lead to be worked up as an outpatient. Agree with metoprolol therapy for now. No indication for antiarrhythmic drug therapy unless he has continue recurrent episodes. Will set up for outpatient testing. This was discussed with him. Will sign of the case at this point time. Thank you for allowing me to partake in his care Procedures Date of Service Date of Service: 05/08/24
--- NOTE | 2024-05-08 10:23 | MHC.CM.PN ---
Pt lives alone, he does not have home health services or DME. CM spoke with dtr at bedside, she said the family thinks pt. needs some help in the home. [facility]. Provider reported that pt. may be ready to DC today, with Givens Cathedar in place, will need VNA services. CM to contact [facility] to [facility] and to request [employer] services for pt.
--- NOTE | 2024-05-08 10:47 | P.PNIM_ITS ---
Subjective Subjective Date of Service: 05/08/24 Review of Systems Follow up COVID, MARCELLO, urinary retension doing better no breathing issues Physical Exam 2 Vital Signs: Vital Signs: Last Vital Signs Temp 97.6 F 05/08/24 07:16 Pulse 77 05/08/24 07:16 Resp 20 05/08/24 07:16 BP 135/67 05/08/24 07:16 Pulse Ox 92 05/08/24 07:16 O2 Del Method Room Air 05/08/24 07:16 BMI result Body Mass Index 33.6 Appearing in no acute distress lung sounds are clear to auscultation heart regular rate rhythm, clear S1, S2 positive bowel sounds, abdomen is soft, nontender neuro patient is alert x3, no focal deficits FC Objective Data Active Medications Acetaminophen (Acetaminophen 325 Mg Tablet) 975 mg PO Q6H PRN PRN Reason: Pain, Mild (Pain Scale 1-3), fever or headache Last Admin: 05/07/24 22:16 Dose: 975 mg Documented By: SHRAVAN Apixaban (Apixaban 5 Mg Tablet) 5 mg PO BID [facility] Stop: 05/14/24 09:01 Last Admin: 05/08/24 08:39 Dose: 5 mg Documented By: CHERYL Artificial Tears (Artificial Tears 15 Ml Drops) 1 drop EYE-BOTH QID PRN PRN Reason: dry eyes Atorvastatin Calcium (Atorvastatin Calcium 80 Mg Tablet) 80 mg PO DAILY [facility] Last Admin: 05/08/24 08:39 Dose: 80 mg Documented By: CHERYL Carbamide Peroxide (Carbamide Peroxide 6.5% Otic 15 Ml Drpbtl) 5 drop EAR-BOTH DAILY [facility] Finasteride (Finasteride 5 Mg Tablet) 5 mg PO BEDTIME [facility] Last Admin: 05/07/24 21:55 Dose: 5 mg Documented By: SHRAVAN Glucose (Glucose Gel 15 Gm Gel..Gram.) 15 gm PO Q15M PRN; Protocol PRN Reason: per Hypoglycemia Standing Ord. Lactated Ringer's (Lr) 1,000 mls @ 100 mls/hr IVCONT .Q10H [facility] Last Admin: 05/07/24 21:57 Dose: 100 mls/hr Documented By: SHRAVAN Insulin Glargine (Insulin Glargine,Hum.Rec.Anlog 100 Unit/Ml 10 Ml Vial) 40 unit SUBCUT BEDTIME [facility] Last Admin: 05/07/24 21:56 Dose: 40 unit Documented By: SHRAVAN Comments: Insulin Human Lispro (Insulin Lispro 100 Unit/Ml 3 Ml Vial) 0 unit SUBCUT QIDACHS [facility]; Protocol Last Admin: 05/08/24 08:40 Dose: 6 unit Documented By: CHERYL Lisinopril (Lisinopril 5 Mg Tablet) 5 mg PO DAILY [facility]; Protocol Last Admin: 05/08/24 08:39 Dose: 5 mg Documented By: CHERYL Methylprednisolone Sodium Succinate (Methylprednisolone Sod Succ 40 Mg/Ml Vial) 40 mg IVPUSH Q12H [facility] Last Admin: 05/07/24 21:55 Dose: 40 mg Documented By: SHRAVAN Metoprolol Tartrate (Metoprolol Tartrate 25 Mg Tablet) 25 mg PO BID [facility]; Protocol Last Admin: 05/08/24 08:40 Dose: 25 mg Documented By: CHERYL Multivitamins/Vitamin C (Multivitamin Tablet) 1 tab PO DAILY [facility] Last Admin: 05/08/24 08:39 Dose: 1 tab Documented By: CHERYL Non-Formulary Medication (Trospium) 20 mg PO BID [facility] Sodium Chloride (0.9 % Sodium Chloride Flush 3 Ml Syringe) 3 ml IVFLUSH QSHIFT [facility] Last Admin: 05/08/24 08:55 Dose: 3 ml Documented By: CHERYL Labs 05/07/24 04:38 05/07/24 04:38 Labs: Laboratory Results - last 24 hr 05/07/24 05/07/24 05/07/24 12:17 16:57 21:44 POC Glucose 275 H 386 H* 412 H* Urine Color Urine Appearance Urine pH Ur Specific [place] Urine Protein Urine Glucose (UA) Urine Ketones Urine Blood Urine Nitrite Ur Leukocyte Esterase Urine RBC Urine WBC Ur Squamous Epith Cells Other Crystals Urine Bacteria Hyaline Casts Urine Opiates Screen Ur Buprenorphine Scrn Ur Oxycodone Screen Urine Methadone Screen Urine Fentanyl Screen Ur Barbiturates Screen Ur Phencyclidine Scrn Ur Amphetamines Screen U Benzodiazepines Scrn Urine Cocaine Screen U Marijuana (THC) Screen 05/08/24 05/08/24 04:30 07:54 POC Glucose 272 H Urine Color Yellow Urine Appearance Cloudy Urine pH 5.0 Ur Specific [place] >= 1.030 H Urine Protein 30 (1+) H Urine Glucose (UA) >=1000 H Urine Ketones Negative Urine Blood Large (3+) H Urine Nitrite Negative Ur Leukocyte Esterase Negative Urine RBC >20 H Urine WBC 0-5 Ur Squamous Epith Cells 0-2 Other Crystals Present Urine Bacteria None Seen Hyaline Casts 0-2 Urine Opiates Screen POSITIVE H Ur Buprenorphine Scrn Not Detected Ur Oxycodone Screen Not Detected Urine Methadone Screen Not Detected Urine Fentanyl Screen Not Detected Ur Barbiturates Screen Not Detected Ur Phencyclidine Scrn Not Detected Ur Amphetamines Screen Not Detected U Benzodiazepines Scrn Not Detected Urine Cocaine Screen Not Detected U Marijuana (THC) Screen Not Detected Microbiology Microbiology Results: Microbiology 05/06/24 21:31 Blood Culture - Preliminary Blood - Venous No growth after 24 hours. 05/06/24 21:31 Blood Culture - Preliminary Blood - Venous No growth after 24 hours. Assessment and Plan (1) Paroxysmal atrial flutter: Status: Acute (2) Urinary retention with incomplete bladder emptying: Status: Acute (3) New onset atrial flutter: Status: Acute Plan 84-year-old male with history of prostate cancer s/p radiation, [id number] type 2 diabetes admitted for COVID 19 with MARCELLO and rhabdomyelysis with new onset svt/aflutter New onset SVT/atrial flutter- now sinus tachycardia On arrival, SVT in the 150s, rate slowed to 120s with 12mg then 6mg IV adenosine revealing rapid aflutter CHADS2 Vasc score 3.eliquis 5mg BID. No contraindications to AC metoprolol 25mg BID Cardiology consult Cardiac monitoring echo Acute rhabodomyolysis with Acute kidney injury stuck between bed and wall for 4 hours Creat 1.86 on arrrival, improved to 1.4 CK 1100 --> 700 s/p Continue IVF avoid nephrotoxins PT>home with services OT eval pending COVID-19 no hypoxia or pneumonia. NO abx or steroids indicated symptomatic management airborne/droplet precautions Weakness r/t above pt eval Acute urinary retention continue barron urology consult> continue barron o/p, f/u with urology in 2 weeks for voiding trial Finasteride and tamsulosin SIRS tachycardia and tachypnea due to svt/flutter- not sepsis Non insulin dependent type 2 diabetes Hgb A1c 8.2%, goal <8.0% given age SS dvt prophylaxis- alfredo Attending Dr. Cain full code continue hospital stay for management of marcello/rhabdo requiring ivf and new onset svt/aflutter requiring cardiac monitoring and expert consulation and will ultimately require pt eval to evaluate for safe dispo given significant weakness r/t the former along with covid 19 Quality Stroke Does the patient have a stroke diagnosis?: No VTE Prior VTE?: No VTE Risk Level:: Medical - moderate - high VTE Device Contraindication: Treatment Not Indicated VTE Drug Contraindication: N/A - Med Ordered
[2024-05-08] MEDS: methylPREDNISolone Sod Succ 40 MG/ML VIAL IVPUSH ×2 (11:32→21:23)
[2024-05-08] MEDS: Acetaminophen 325 MG TABLET 975 MG PO ×2 (11:46→18:51)
[2024-05-08 12:00] VITALS: BP 143/68; PULSE 64; RESP 18; TEMP 36.5; O2SAT 95
[2024-05-08 12:23] LABS: Glucose, Whole Blood 316 mg/dL (60-115)
[2024-05-08 16:00] VITALS: BP 157/72; PULSE 71; TEMP 36.5; O2SAT 96
[2024-05-08 16:43] LABS: Glucose, Whole Blood 354 mg/dL (60-115)
[2024-05-08 20:00] VITALS: BP 142/48; PULSE 80; RESP 16; TEMP 36.6; O2SAT 96
[2024-05-08 20:36] LABS: Glucose, Whole Blood 369 mg/dL (60-115)
[2024-05-08] MEDS: Finasteride 5 MG TABLET PO (21:21)
[2024-05-08] MEDS: Tamsulosin HCL 0.4 MG CAPSULE PO (21:22)
[2024-05-08] MEDS: Insulin Glargine,Hum.rec.anlog 100 UNIT/ML 10 ML VIAL 40 UNIT SUBCUT (21:23)
[2024-05-09] VITALS: BP 168/73; PULSE 77; RESP 16; TEMP 36.8; O2SAT 96
[2024-05-09] MEDS: Acetaminophen 325 MG TABLET 975 MG PO ×3 (01:58→19:56)
[2024-05-09 04:00] VITALS: BP 126/68; PULSE 61; RESP 16; TEMP 36.3; O2SAT 95
[2024-05-09 08:00] VITALS: BP 137/77; PULSE 78; RESP 20; TEMP 36.1; O2SAT 95
[2024-05-09 08:32] LABS: Glucose, Whole Blood 308 mg/dL (60-115)
[2024-05-09] MEDS: Insulin Lispro 100 UNIT/ML 3 ML VIAL SUBCUT ×4 (09:33→21:03)
[2024-05-09] MEDS: Multivitamin TABLET 1 TAB PO (09:33)
[2024-05-09] MEDS: Atorvastatin Calcium 80 MG TABLET PO (09:33)
[2024-05-09] MEDS: Apixaban 5 MG TABLET PO ×2 (09:33→19:56)
[2024-05-09] MEDS: Metoprolol Tartrate 25 MG TABLET PO ×2 (09:33→19:56)
[2024-05-09] MEDS: lisinopriL 5 MG TABLET PO (09:33)
[2024-05-09] MEDS: methylPREDNISolone Sod Succ 40 MG/ML VIAL IVPUSH ×2 (09:33→21:03)
[2024-05-09] MEDS: 0.9 % Sodium Chloride Flush 3 ML SYRINGE IVFLUSH ×2 (09:34→15:48)
--- NOTE | 2024-05-09 10:33 | HO.PM.IMPN ---
Subjective Subjective Date of Service: 05/09/24 Review of Systems Follow up COVID, MARCELLO, urinary retension doing better no breathing issues Physical Exam Vital Signs: Vital Signs: Last Vital Signs Temp 96.9 F 05/09/24 08:00 Pulse 78 05/09/24 08:00 Resp 20 05/09/24 08:00 BP 137/77 05/09/24 08:00 Pulse Ox 95 05/09/24 08:00 O2 Del Method Room Air 05/09/24 08:00 BMI result Body Mass Index 33.6 Appearing in no acute distress lung sounds are clear to auscultation heart regular rate rhythm, clear S1, S2 positive bowel sounds, abdomen is soft, nontender neuro patient is alert x3, no focal deficits FC in place Objective Data Active Medications Acetaminophen (Acetaminophen 325 Mg Tablet) 975 mg PO Q6H PRN PRN Reason: Pain, Mild (Pain Scale 1-3), fever or headache Last Admin: 05/09/24 09:51 Dose: 975 mg Documented By: LORIN Apixaban (Apixaban 5 Mg Tablet) 5 mg PO BID [facility] Stop: 05/14/24 09:01 Last Admin: 05/09/24 09:33 Dose: 5 mg Documented By: LORIN Artificial Tears (Artificial Tears 15 Ml Drops) 1 drop EYE-BOTH QID PRN PRN Reason: dry eyes Atorvastatin Calcium (Atorvastatin Calcium 80 Mg Tablet) 80 mg PO DAILY [facility] Last Admin: 05/09/24 09:33 Dose: 80 mg Documented By: LORIN Belladonna Alkaloids/Opium (Opium/Belladonna 60/16.2 Mg Supp.Rect) 1 supp MS ONCE ONE Stop: 05/09/24 10:33 Carbamide Peroxide (Carbamide Peroxide 6.5% Otic 15 Ml Drpbtl) 5 drop EAR-BOTH DAILY [facility] Last Admin: 05/09/24 09:35 Dose: Not Given Documented By: LORIN Non-Admin Reason: Patient Refused Finasteride (Finasteride 5 Mg Tablet) 5 mg PO BEDTIME [facility] Last Admin: 05/08/24 21:21 Dose: 5 mg Documented By: TEREZA Glucose (Glucose Gel 15 Gm Gel..Gram.) 15 gm PO Q15M PRN; Protocol PRN Reason: per Hypoglycemia Standing Ord. Insulin Glargine (Insulin Glargine,Hum.Rec.Anlog 100 Unit/Ml 10 Ml Vial) 40 unit SUBCUT BEDTIME [facility] Last Admin: 05/08/24 21:23 Dose: 40 unit Documented By: TEREZA Insulin Human Lispro (Insulin Lispro 100 Unit/Ml 3 Ml Vial) 0 unit SUBCUT QIDACHS [facility]; Protocol Last Admin: 05/09/24 09:33 Dose: 8 unit Documented By: LORIN Lisinopril (Lisinopril 5 Mg Tablet) 5 mg PO DAILY [facility]; Protocol Last Admin: 05/09/24 09:33 Dose: 5 mg Documented By: LORIN Methylprednisolone Sodium Succinate (Methylprednisolone Sod Succ 40 Mg/Ml Vial) 40 mg IVPUSH Q12H [facility] Last Admin: 05/09/24 09:33 Dose: 40 mg Documented By: LORIN Metoprolol Tartrate (Metoprolol Tartrate 25 Mg Tablet) 25 mg PO BID [facility]; Protocol Last Admin: 05/09/24 09:33 Dose: 25 mg Documented By: LORIN Multivitamins/Vitamin C (Multivitamin Tablet) 1 tab PO DAILY [facility] Last Admin: 05/09/24 09:33 Dose: 1 tab Documented By: LORIN Non-Formulary Medication (Trospium) 20 mg PO BID [facility] Sodium Chloride (0.9 % Sodium Chloride Flush 3 Ml Syringe) 3 ml IVFLUSH QSHIFT [facility] Last Admin: 05/09/24 09:34 Dose: 3 ml Documented By: LORIN Tamsulosin HCl (Tamsulosin Hcl 0.4 Mg Capsule) 0.4 mg PO BEDTIME [facility] Last Admin: 05/08/24 21:22 Dose: 0.4 mg Documented By: TEREZA Labs 05/07/24 04:38 05/07/24 04:38 Labs: Laboratory Results - last 24 hr 05/08/24 05/08/24 05/08/24 12:14 16:29 20:25 POC Glucose 316 H 354 H* 369 H* 05/09/24 08:10 POC Glucose 308 H Microbiology Microbiology Results: Microbiology 05/06/24 21:31 Blood Culture - Preliminary Blood - Venous No growth after 48 hours. 05/06/24 21:31 Blood Culture - Preliminary Blood - Venous No growth after 48 hours. Assessment and Plan (1) Paroxysmal atrial flutter: Status: Acute (2) Urinary retention with incomplete bladder emptying: Status: Acute (3) New onset atrial flutter: Status: Acute Plan 84-year-old male with history of prostate cancer s/p radiation, edy-uidktfs-soheklixv type 2 diabetes admitted for COVID 19 with MARCELLO and rhabdomyelysis with new onset svt/aflutter Prostate spasms noted LE spasms with urination discussed with urology> give belladonna supp New onset SVT/atrial flutter- now sinus tachycardia On arrival, SVT in the 150s, rate slowed to 120s with 12mg then 6mg IV adenosine revealing rapid aflutter CHADS2 Vasc score 3.eliquis 5mg BID. No contraindications to AC metoprolol 25mg BID Cardiology following>continue ac and BB, should have sleep study (ordered inpatient) echo>normal EF with moderate LVH Acute rhabodomyolysis with Acute kidney injury stuck between bed and wall for 4 hours prior to admission Creat 1.86 on arrrival, improved to 1.4 CK 1100 --> 700 s/p Continue IVF avoid nephrotoxins PT>home with services OT>acute rehab COVID-19 no hypoxia or pneumonia. NO abx or steroids indicated symptomatic management airborne/droplet precautions Weakness r/t above pt eval Acute urinary retention continue barron urology consult> continue barron o/p, f/u with urology in 2 weeks for voiding trial Finasteride and tamsulosin SIRS tachycardia and tachypnea due to svt/flutter- not sepsis Non insulin dependent type 2 diabetes Hgb A1c 8.2%, goal <8.0% given age SS dvt prophylaxis- alfredo Attending Dr. Cain full code Quality Stroke Does the patient have a stroke diagnosis?: No VTE Prior VTE?: No VTE Risk Level:: Medical - moderate - high VTE Device Contraindication: Treatment Not Indicated VTE Drug Contraindication: N/A - Med Ordered
[2024-05-09] MEDS: Opium/Belladonna 60/16.2 mg SUPP.RECT 1 SUPP PR (11:09)
[2024-05-09 11:46] VITALS: BP 180/82; PULSE 76; RESP 20; TEMP 36.1; O2SAT 95
[2024-05-09 11:57] LABS: Glucose, Whole Blood 371 mg/dL (60-115)
--- NOTE | 2024-05-09 13:52 | MHC.CM.PN ---
Pt is not yet ready for DC. He is being treated for acute urinary retention. He and his dtr have requested DC to [facility], referral submitted. Other STR have accepted. Anticipate DC on 05/10/24.
[2024-05-09] MEDS: Cyclobenzaprine HCl 5 MG TABLET PO (15:45)
[2024-05-09 16:00] VITALS: BP 173/73; PULSE 88; RESP 16; TEMP 36.1; O2SAT 95
[2024-05-09 16:55] LABS: Glucose, Whole Blood 275 mg/dL (60-115)
[2024-05-09 19:33] VITALS: BP 123/85; PULSE 71; RESP 18; TEMP 37; O2SAT 91
[2024-05-09] MEDS: Tamsulosin HCL 0.4 MG CAPSULE PO (19:56)
[2024-05-09] MEDS: Finasteride 5 MG TABLET PO (19:56)
[2024-05-09 20:24] LABS: Glucose, Whole Blood 344 mg/dL (60-115)
[2024-05-09] MEDS: Insulin Glargine,Hum.rec.anlog 100 UNIT/ML 10 ML VIAL 40 UNIT SUBCUT (21:03)
[2024-05-10] VITALS (7 sets, daily range): BP systolic 125–156; BP diastolic 66–72; PULSE 61–79; RESP 15–20; TEMP 36.1–37.1; O2SAT 92–94
[2024-05-10] MEDS: Acetaminophen 325 MG TABLET 975 MG PO ×2 (03:49→10:39)
[2024-05-10 07:46] LABS: Glucose, Whole Blood 243 mg/dL (60-115)
[2024-05-10] MEDS: Insulin Lispro 100 UNIT/ML 3 ML VIAL SUBCUT ×5 (07:51→21:28)
[2024-05-10] MEDS: Metoprolol Tartrate 25 MG TABLET PO ×2 (09:24→20:52)
[2024-05-10] MEDS: Atorvastatin Calcium 80 MG TABLET PO (09:24)
[2024-05-10] MEDS: lisinopriL 5 MG TABLET PO (09:25)
[2024-05-10] MEDS: Multivitamin TABLET 1 TAB PO (09:25)
[2024-05-10] MEDS: methylPREDNISolone Sod Succ 40 MG/ML VIAL IVPUSH (09:25)
[2024-05-10] MEDS: Apixaban 5 MG TABLET PO ×2 (09:25→20:52)
[2024-05-10] MEDS: Carbamide Peroxide 6.5% Otic 15 ML DRPBTL 5 DROP EAR-BOTH (09:26)
[2024-05-10] MEDS: Artificial Tears 15 ML DROPS 1 DROP EYE-BOTH (09:26)
[2024-05-10 09:27] LABS: Hematocrit 40.8 % (42.0-52.0); Hemoglobin 13.8 g/dl (14.0-18.0); Mean Corpuscular HGB Conc 33.8 g/dl (31.0-36.0); Mean Corpuscular Hemoglobin 31.5 pg (27.0-33.0); Mean Corpuscular Volume 93.2 fL (80.0-98.0); Mean Platelet Volume 12.2 fL (9.4-12.4); Platelet Count 147 X10*3/uL (160-400); Red Blood Count 4.38 X10*6/uL (4.60-5.80); Red Cell Distribution Width 13.1 % (11.0-16.0); White Blood Count 6.8 X10*3/uL (4.8-10.8)
[2024-05-10] MEDS: 0.9 % Sodium Chloride Flush 3 ML SYRINGE IVFLUSH ×3 (09:27→16:59)
[2024-05-10 11:41] LABS: Glucose, Whole Blood 381 mg/dL (60-115)
[2024-05-10 11:58] LABS: Anion Gap 13 (12-20); Blood Urea Nitrogen 38 mg/dL (9-16); Calcium 8.5 mg/dL (8.4-10.2); Carbon Dioxide 20 mmol/L (22-29); Chloride 110 mmol/L (96-108); Creatinine Clr Calc Pharmacy 43.5; Estimated Glomerular Filt Rate 47; Glucose Random 421 mg/dL (60-115); Potassium 4.2 mmol/L (3.3-5.1); Sodium 139 mmol/L (135-145)
--- NOTE | 2024-05-10 12:13 | MHC.CM.PN ---
IMM done on 05/10/24, pt admitted on 05/07/24 and we had only his [employer] insurance info, but have since found that he is active with Medicare, so IMM completed today. Anticipate pt. will DC on 05/11/24 to [facility]
--- NOTE | 2024-05-10 12:58 | P.PNIM_ITS ---
Subjective Subjective Date of Service: 05/10/24 Interval History: Seen and examined this morning Follow-up for urinary retention, MARCELLO, COVID-19 Reporting ongoing pelvic spasming since Givens was placed No shortness a breath, no cough Review of Systems Review of Systems: Yes all other systems are reviewed and are negative Constitutional Constitutional: Denies chills and Denies fever(s) Cardiovascular Cardiovascular: Denies chest pain, Denies palpitations and Denies dyspnea Respiratory Respiratory: Denies cough and Denies dyspnea Gastrointestinal Gastrointestinal: Denies abdominal pain Endocrine Endocrine: Denies palpitations Physical Exam 2 Vital Signs: Vital Signs: Last Vital Signs Temp 97 F 05/10/24 11:48 Pulse 62 05/10/24 11:48 Resp 20 05/10/24 11:48 BP 125/66 05/10/24 11:48 Pulse Ox 94 05/10/24 11:48 O2 Del Method Room Air 05/10/24 11:48 BMI result Body Mass Index 33.6 Const: Nutritional Appearance: well nourished Orientation/consciousness: p atient oriented x3 Chest: Chest palpation & inspection: normal inspection of the chest Resp: Effort & Inspection: normal respiratory effort and no respiratory distress Auscultation: clear to auscultation bilaterally Cardio: Rate: regular rate GI: Palpation (GI): Soft to palpation and nontender : Other: Givens in place draining clear, yellow urine Neuro: General: patient oriented x3 Cranial nerves: Yes CN's II-XII intact bilaterally Objective Data Active Medications Acetaminophen (Acetaminophen 325 Mg Tablet) 975 mg PO Q6H PRN PRN Reason: Pain, Mild (Pain Scale 1-3), fever or headache Last Admin: 05/10/24 10:39 Dose: 975 mg Documented By: MACARIO Apixaban (Apixaban 5 Mg Tablet) 5 mg PO BID [facility] Stop: 05/14/24 09:01 Last Admin: 05/10/24 09:25 Dose: 5 mg Documented By: MACARIO Artificial Tears (Artificial Tears 15 Ml Drops) 1 drop EYE-BOTH QID PRN PRN Reason: dry eyes Last Admin: 05/10/24 09:26 Dose: 1 drop Documented By: MACARIO Atorvastatin Calcium (Atorvastatin Calcium 80 Mg Tablet) 80 mg PO DAILY [facility] Last Admin: 05/10/24 09:24 Dose: 80 mg Documented By: MACARIO Carbamide Peroxide (Carbamide Peroxide 6.5% Otic 15 Ml Drpbtl) 5 drop EAR-BOTH DAILY [facility] Last Admin: 05/10/24 09:26 Dose: 5 drop Documented By: MACARIO Finasteride (Finasteride 5 Mg Tablet) 5 mg PO BEDTIME [facility] Last Admin: 05/09/24 19:56 Dose: 5 mg Documented By: CASSIDY Glucose (Glucose Gel 15 Gm Gel..Gram.) 15 gm PO Q15M PRN; Protocol PRN Reason: per Hypoglycemia Standing Ord. Insulin Glargine (Insulin Glargine,Hum.Rec.Anlog 100 Unit/Ml 10 Ml Vial) 40 unit SUBCUT BEDTIME [facility] Last Admin: 05/09/24 21:03 Dose: 40 unit Documented By: CASSIDY Insulin Human Lispro (Insulin Lispro 100 Unit/Ml 3 Ml Vial) 0 unit SUBCUT QIDACHS [facility]; Protocol Last Admin: 05/10/24 11:47 Dose: 10 unit Documented By: MACARIO Lisinopril (Lisinopril 5 Mg Tablet) 5 mg PO DAILY [facility]; Protocol Last Admin: 05/10/24 09:25 Dose: 5 mg Documented By: MACARIO Metoprolol Tartrate (Metoprolol Tartrate 25 Mg Tablet) 25 mg PO BID [facility]; Protocol Last Admin: 05/10/24 09:24 Dose: 25 mg Documented By: MACARIO Multivitamins/Vitamin C (Multivitamin Tablet) 1 tab PO DAILY [facility] Last Admin: 05/10/24 09:25 Dose: 1 tab Documented By: MACARIO Non-Formulary Medication (Trospium) 20 mg PO BID [facility] Sodium Chloride (0.9 % Sodium Chloride Flush 3 Ml Syringe) 3 ml IVFLUSH QSHIFT [facility] Last Admin: 05/10/24 09:27 Dose: 3 ml Documented By: MACARIO Tamsulosin HCl (Tamsulosin Hcl 0.4 Mg Capsule) 0.4 mg PO BEDTIME [facility] Last Admin: 05/09/24 19:56 Dose: 0.4 mg Documented By: CASSIDY Labs 05/10/24 08:51 05/10/24 08:51 Labs: Laboratory Results - last 24 hr 05/09/24 05/09/24 05/10/24 16:51 20:06 07:38 MCV MCH MCHC RDW Plt Count MPV Absolute Nucleated RBC Nucleated RBC % (auto) Anion Gap Estim Creat Clear Calc Estimated GFR POC Glucose 275 H 344 H 243 H Random Glucose Calcium 05/10/24 05/10/24 08:51 11:31 MCV 93.2 MCH 31.5 MCHC 33.8 RDW 13.1 Plt Count 147 L MPV 12.2 Absolute Nucleated RBC 0.000 Nucleated RBC % (auto) 0.0 Anion Gap 13 Estim Creat Clear Calc 43.5 Estimated GFR 47 POC Glucose 381 H* Random Glucose 421 H* Calcium 8.5 D Assessment and Plan (1) Paroxysmal atrial flutter: Status: Acute (2) Urinary retention with incomplete bladder emptying: Status: Acute (3) MARCELLO (acute kidney injury): Status: Acute Plan 84-year-old male with history of prostate cancer s/p radiation, nuq-uxmdnov-arjoqxygc type 2 diabetes admitted for COVID 19 with MARCELLO and rhabdomyelysis with new onset svt/aflutter Acute urinary retention Givens placed, has been having severe spasms since placement Discuss with Urology, no improvement after belladonna suppository, we will remove Givens catheter and attempt voiding trial Continue Finasteride and tamsulosin New onset SVT/atrial flutter- now sinus tachycardia On arrival, SVT in the 150s, rate slowed to 120s with 12mg then 6mg IV adenosine revealing rapid aflutter CHADS2 Vasc score 3.eliquis 5mg BID. No contraindications to AC metoprolol 25mg BID Cardiology following>continue ac and BB, rec sleep study - as exhibiting signs and symptoms of ELIOT this was obtained as inpatient, noted to have ELIOT we will initiate CPAP echo>normal EF with moderate LVH Acute rhabodomyolysis with Acute kidney injury stuck between bed and wall for 4 hours prior to admission Creat 1.86 on arrival, improved to 1.4 CK 1100 --> 700 s/p IVF avoid nephrotoxins PT>home with services OT>acute rehab COVID-19 no hypoxia or pneumonia. NO abx or steroids indicated symptomatic management airborne/droplet precautions SIRS tachycardia and tachypnea due to svt/flutter- not sepsis Non insulin dependent type 2 diabetes with hyperglycemia Hyperglycemia due to steroids - will Stop steroids Hgb A1c 8.2%, goal <8.0% given age SS dvt prophylaxis- alfredo Attending Dr. Cain full code Quality Stroke Does the patient have a stroke diagnosis?: No VTE Prior VTE?: No VTE Risk Level:: Medical - moderate - high VTE Device Contraindication: Treatment Not Indicated VTE Drug Contraindication: N/A - Med Ordered
--- NOTE | 2024-05-10 13:24 | PC.NURSE ---
Givens cath removed at 11 am , pt urinated 175 ml pink tinged using urinal , bladder scanned for 17 ml . Pt stated that amount of 175 ml of urine was multiple void . Pt stated that at home he is urinating frequent too
--- NOTE | 2024-05-10 13:37 | PC.NURSE ---
urinated 50 ml , bladder scanned for 77 ml
[2024-05-10 15:52] LABS: Glucose, Whole Blood 342 mg/dL (60-115)
--- NOTE | 2024-05-10 16:45 | PC.NURSE ---
urinated 1oo ml , bladder scanned for 66 ml ,no more bladder spasms noted or reported
--- NOTE | 2024-05-10 18:44 | PC.NURSE ---
urinated clear yellow urine 50 ml , bladder scanned for 33 ml
[2024-05-10] MEDS: Finasteride 5 MG TABLET PO (20:52)
[2024-05-10] MEDS: Tamsulosin HCL 0.4 MG CAPSULE PO (20:52)
[2024-05-10] MEDS: Insulin Glargine,Hum.rec.anlog 100 UNIT/ML 10 ML VIAL 40 UNIT SUBCUT (20:54)
[2024-05-10 21:01] LABS: Glucose, Whole Blood 384 mg/dL (60-115)
[2024-05-11] VITALS: BP 139/70; PULSE 63; RESP 18; TEMP 37.1; O2SAT 97
[2024-05-11 04:00] VITALS: BP 146/65; PULSE 72; RESP 20; TEMP 36.2; O2SAT 95
[2024-05-11 07:43] VITALS: BP 173/79; PULSE 102; RESP 18; TEMP 36.6; O2SAT 96
[2024-05-11] MEDS: Atorvastatin Calcium 80 MG TABLET PO (07:49)
[2024-05-11] MEDS: Metoprolol Tartrate 25 MG TABLET PO (07:49)
[2024-05-11] MEDS: Apixaban 5 MG TABLET PO (07:49)
[2024-05-11] MEDS: lisinopriL 5 MG TABLET PO (07:49)
[2024-05-11] MEDS: Insulin Lispro 100 UNIT/ML 3 ML VIAL SUBCUT ×2 (07:49→12:04)
[2024-05-11] MEDS: 0.9 % Sodium Chloride Flush 3 ML SYRINGE IVFLUSH (07:49)
[2024-05-11] MEDS: Multivitamin TABLET 1 TAB PO (07:49)
[2024-05-11 07:56] LABS: Glucose, Whole Blood 241 mg/dL (60-115)
--- NOTE | 2024-05-11 09:39 | MHC.CM.PN ---
Patient is discharged to [facility] today. 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
--- NOTE | 2024-05-11 09:47 | P.DS_ITS ---
DS: Providers Provider Date of Service: 05/11/24 Date of admission: 05/07/24 04:12 Date of discharge: 05/11/24 Primary care physician: Didier Serrano MD Consults: 05/07/24 10:08 Consult to Cardiology Routine Consulting Provider: [facility] Reason for consultation: new onset a flutter 05/07/24 10:20 Consult to Urology Routine Consulting Provider: [facility] Reason for consultation: urinary retention 05/09/24 09:45 Consult to Urology Routine Consulting Provider: [facility] Reason for consultation: pain with urination, fc in place, spasms with urination Attending physician on discharge: Terence Cain Discharging clinician: Ana Cristina Chu DS: Diagnosis Discharge Diagnosis (1) Paroxysmal atrial flutter: Status: Acute (2) Urinary retention with incomplete bladder emptying: Status: Acute (3) MARCELLO (acute kidney injury): Status: Acute DS: Summary Hospital Course Hospital Course: From H&P on the day of admission 84-year-old male with history of prostate cancer s/p radiation, [id number] type 2 diabetes presents to the ED late last night after sustaining a fall. The patient reports he was in bed and fell between the bed and the wall where he remained stuck for about 4 hours. He also states that for the last several days, has had an initially productive cough that is now dry, chills. Denies any fevers at home, sore throat, congestion, abdominal pain, nausea, vomiting, diarrhea, dysuria, hematuria, decreased urinary output, shortness of breath, palpitations, lightheadedness, or chest pains. He denies any known sick contacts. Reports he lives by himself. On arrival, patient was found to be in SVT with heart rate 156 and received 12, then 6 mg adenosine and upon rate slowing, showed atrial flutter but remains tachycardic in the 120s. On arrival, hematology studies appeared concentrated and repeat studies without any leukocytosis which showed a normocytic anemia with H/H 13.9/41.1%, platelets 122. On arrival, creatinine was 1.83 with a BUN 32, electrolyte levels normal with glucose of 326. Received 3 L IVF with improvement in creatinine to 1.43, BUN 29, electrolytes significant for chloride 114, CO2 18 and glucose improved to 229. Hemoglobin A1c measured at 8.2%. Initially total CK 1167, repeat 738 following IV fluids. Troponins flat. Beta hydroxybutyrate 1.16. The patient is positive for COVID-19 which appears to be a new diagnosis. Head CT negative for acute intracranial abnormality CT negative for acute osseous abnormality CXR negative for focal consolidation or acute cardiopulmonary abnormality. CT abdomen pelvis shows a chronic pancreatitis and enlarged fatty liver but no acute intra-abdominal abnormality or evidence of bleeding. Apparently, the patient was retaining urine and attempts at straight catheterization were made but failed and ultimately patient received Givens catheter due to acute urinary retention, drained 1 L urine and reportedly passed a large clot. Patient ultimately was not placed on CBI and is now draining clear yellow urine. In the ED received ceftriaxone, IV Tylenol, 3 L IVF, morphine and regular insulin. Acute urinary retention Givens placed, has been having severe spasms since placement. Discussed with Urology, no improvement after belladonna suppository, Givens was removed and patient passed voiding trial. He was started on Finasteride and tamsulosin and should have outpatient follow-up with Urology New onset SVT/atrial flutter- now sinus tachycardia On arrival, SVT in the 150s, rate slowed to 120s with 12mg then 6mg IV adenosine revealing rapid aflutter. CHADS2 Vasc score 3. eliquis 5mg BID started as No contraindications to AC. Hear rate stable with metoprolol 25mg BID. Seen by Cardiology following>continue ac and BB. echo with normal EF with moderate LVH ELIOT exhibiting signs and symptoms of ELIOT - sleep study was obtained as inpatient, noted to have ELIOT and initiated on CPAP Acute rhabodomyolysis with Acute kidney injury stuck between bed and wall for 4 hours prior to admission Creat 1.86 on arrival, improved to 1.4 CK improved with IVF Mechanical fall. Physical therapy and occupational therapy evaluated the patient and recommended rehab. COVID-19 no hypoxia or pneumonia. Has remained on room air. SIRS tachycardia and tachypnea due to svt/flutter- not sepsis Non insulin dependent type 2 diabetes with hyperglycemia Hgb A1c 8.2%, goal <8.0% given age Continue Lantus with sliding scale coverage Time Attestation Discharge Coordination Time (in mins): 35 Quality: Safe Use of Opioids Does Pt have an Active Cancer Diagnosis on the Problem List?: No Quality: Stroke Does the patient have a stroke diagnosis?: No Physical Exam Vital Signs: Vital Signs: Last Vital Signs Temp 98 F 05/11/24 07:43 Pulse 102 H 05/11/24 07:43 Resp 18 05/11/24 07:43 BP 173/79 H 05/11/24 07:43 Pulse Ox 96 05/11/24 07:43 O2 Del Method Room Air 05/11/24 07:43 BMI result Body Mass Index 33.6 Const: Nutritional Appearance: well nourished Orientation/consciousness: patient oriented x3 Chest: Chest palpation & inspection: normal inspection of the chest Resp: Effort & Inspection: normal respiratory effort and no respiratory distress Auscultation: clear to auscultation bilaterally Cardio: Rate: regular rate GI: Palpation (GI): Soft to palpation and nontender Neuro: General: patient oriented x3 Cranial nerves: Yes CN's II-XII intact bilaterally DS: Data Data Completed and Pending Labs on day of discharge: Laboratory Results - last 24 hr 05/10/24 05/10/24 05/10/24 08:51 11:31 15:49 Sodium 139 Potassium 4.2 Chloride 110 H Carbon Dioxide 20 L Anion Gap 13 BUN 38 H Creatinine 1.43 H Estim Creat Clear Calc 43.5 Estimated GFR 47 POC Glucose 381 H* 342 H Random Glucose 421 H* Calcium 8.5 D 05/10/24 05/11/24 20:54 07:44 Sodium Potassium Chloride Carbon Dioxide Anion Gap BUN Creatinine Estim Creat Clear Calc Estimated GFR POC Glucose 384 H* 241 H Random Glucose Calcium Preliminary micro results at discharge 05/06/24 21:31 Blood Culture - Preliminary Blood - Venous No growth after 48 hours. 05/06/24 21:31 Blood Culture - Preliminary Blood - Venous No growth after 48 hours. Discharge Plan Discharge Anticipated Discharge Date/Time: 05/11/24 11:00 Patient Disposition: Xfer SNF Discharge Diagnosis: covid 19 Urinary retention [facility]Outside] - 1 Week Raghav Barbosa MD [Physician] - 1 Week Didier Serrano MD [Primary Care Provider] - [address] MD [Physician] - 2 Weeks Discharge Medications: New tamsulosin 0.4 mg Capsule 0.4 mg PO BEDTIME 30 Days Qty: 30 0RF Eliquis 5 mg Tablet 5 mg PO BID 30 Days Qty: 60 0RF metoprolol tartrate 25 mg Tablet 25 mg PO BID 30 Days Qty: 60 0RF Protocol: Hold for SBP/HR < HOLD for SBP < : 90 HOLD for HR < : 60 Continued atorvastatin 80 mg Tablet 80 mg PO DAILY carboxymethylcellulose sodium 0.5 % Drops 1 drp OPHTHALMIC (EYE) QID carbamide peroxide 6.5 % Drops 5 drp OTIC (EARS) DAILY multivitamin Tablet 1 tab PO DAILY metformin 500 mg Tablet 500 mg PO DAILY lisinopril 5 mg Tablet 5 mg PO DAILY finasteride 5 mg Tablet 5 mg PO BEDTIME Changed insulin glargine-yfgn 100 unit/mL (3 mL) Insulin Pen 45 unit SUBCUT DAILY Qty: 15 0RF Held insulin aspart U-100 [Novolog FlexPen U-100 Insulin] 100 unit/mL (3 mL) Insulin Pen 25 unit SUBCUT DAILY Hold Instructions: Held during hospitalization insulin aspart U-100 [Novolog FlexPen U-100 Insulin] 100 unit/mL (3 mL) Insulin Pen 24 unit subcut DAILY@1200 Hold Instructions: Held during hospitalization insulin aspart U-100 [Novolog FlexPen U-100 Insulin] 100 unit/mL (3 mL) Insulin Pen 100 unit SUBCUT DAILY@1700 Hold Instructions: Held during hospitalization Discontinued trospium 20 mg Tablet 20 mg PO BID Rx Instructions: administer on an empty stomach Discharge Orders: Discharge Order (Routine); Ordered 05/11/24 Ordered By: AnaC ristina Chu Activity on Discharge: As tolerated Stand Alone Forms: Patient Portal Discharge page Print Language: Divehi Care Plan Goals: See below Health Concerns: [id number], no hypoxia Urinary retention, Givens catheter removed, passed voiding trial New onset atrial flutter/atrial fibrillation. Heart rate controlled MARCELLO, rhabdo resolved Plan of Treatment: For urinary retention, stopped trospium; continue Proscar, Flomax added For atrial flutter, atrial fibrillation, started on anticoagulation with Eliquis. Rate control with metoprolol Recommend outpatient follow-up with Cardiology for diabetes - received 40U lantus and sliding scale coverage - recommend 45 U of Lantus and up titrate as needed; sliding scale coverage as per facility Assessment: See discharge summary
[2024-05-11 09:51] VITALS: BP 119/60; PULSE 71; RESP 18
[2024-05-11 11:36] VITALS: BP 138/79; PULSE 77; RESP 16; TEMP 36.6; O2SAT 95
[2024-05-11 11:55] LABS: Glucose, Whole Blood 353 mg/dL (60-115)
[2024-05-11] MEDS: Carbamide Peroxide 6.5% Otic 15 ML DRPBTL 5 DROP EAR-BOTH (12:04)
== END 2024-05-11 13:42 | disposition skilled nursing facility (03) | DRG 557 ==
LOC: HO.ED 05-07 02:11 → HO.EDOVER 05-07 04:22 → HO.IMC 05-07 19:22
PROVIDERS: Internal Medicine; Nurse Practitioner Acute Care; Physician Assistant Medical; Admitting Provider Internal Medicine; Emergency Provider Emergency Medicine Emergency Medical Services; PCP Internal Medicine; Visit Provider Physician Assistant Medical
DX: M62.82 Rhabdomyolysis (principal); U07.1 COVID-19; I47.10 Supraventricular tachycardia, unspecified; I48.92 Unspecified atrial flutter; N17.9 Acute kidney failure, unspecified; G47.33 Obstructive sleep apnea (adult) (pediatric); E11.65 Type 2 diabetes mellitus with hyperglycemia; R33.9 Retention of urine, unspecified; W19.XXXA Unspecified fall, initial encounter; Z85.46 Personal history of malignant neoplasm of prostate; Z92.3 Personal history of irradiation; Z79.4 Long term (current) use of insulin; Z79.84 Long term (current) use of oral hypoglycemic drugs; Z79.899 Other long term (current) drug therapy
CPT/HCPCS: 0241U; 36415; 70450; 71045; 72125; 74176; 80048; 80053; 80307; 81001; 81003; 82010; 82550; 82947; 83036; 83605; 83735; 83880; 84484; 85025; 85027; 85610; 87040; 93005; 93306; 97110; 97116; 97161; 97165; 97530; 97535; 99285; C1758; J0131; J0153; J0696; J2270; J2919; J7120; Q9957

== ENCOUNTER 2024-05-07 04:12 | Outpatient (BNV) | payer OTHER, SELFPAY | END 2024-05-07 07:00 | PROVIDERS: Admitting Provider Internal Medicine; Emergency Provider Emergency Medicine Emergency Medical Services; PCP Internal Medicine; Visit Provider Internal Medicine Cardiovascular Disease | DX: I35.0 Nonrheumatic aortic (valve) stenosis (principal); I35.8 Other nonrheumatic aortic valve disorders; I34.81 Nonrheumatic mitral (valve) annulus calcification | CPT/HCPCS: 93306 ==

== ENCOUNTER → 2024-05-07 04:12 | Outpatient (BNV) | payer OTHER, SELFPAY | PROVIDERS: Admitting Provider Internal Medicine; Emergency Provider Emergency Medicine Emergency Medical Services; PCP Internal Medicine; Visit Provider Urology | DX: R33.9 Retention of urine, unspecified (principal); N17.9 Acute kidney failure, unspecified | CPT/HCPCS: 99222 ==

== ENCOUNTER → 2024-05-07 04:12 | Outpatient (BNV) | payer OTHER, SELFPAY | PROVIDERS: Admitting Provider Internal Medicine; Emergency Provider Emergency Medicine Emergency Medical Services; PCP Internal Medicine; Visit Provider Internal Medicine Cardiovascular Disease | DX: I48.92 Unspecified atrial flutter (principal) | CPT/HCPCS: 99222 ==

== ENCOUNTER → 2024-05-07 04:12 | Outpatient (BNV) | payer OTHER, SELFPAY | PROVIDERS: Admitting Provider Internal Medicine; Emergency Provider Emergency Medicine Emergency Medical Services; PCP Internal Medicine; Visit Provider Physician Assistant | DX: I48.92 Unspecified atrial flutter (principal); R33.9 Retention of urine, unspecified; N17.9 Acute kidney failure, unspecified | CPT/HCPCS: 99223; 99232; 99239 ==

== ENCOUNTER 2024-05-13 12:30 | Outpatient (REF) | payer OTHER, SELFPAY ==
[2024-05-14 11:41] LABS: Appearance Urine Cloudy; Color Urine Dark Yellow; Glucose Urine UA >=1000 mg/dL (Negative); Leukocyte Esterase Urine Trace (Negative); Nitrite Urine Negative (Negative); Specific Gravity - Urine 1.025 (1.005-1.025); UMIC TRIGGER UACC YES; Urine Blood Large (3+) (Negative); Urine Ketones Trace mg/dL (Negative); Urine Protein 30 (1+) mg/dL (Neg-Trace)
[2024-05-14 12:06] LABS: Bacteria Urine None Seen (None Seen); Granular Casts Urine Present; RBC Urine >20 /HPF (0-2); UACC Culture Trigger YES
== END 2024-05-13 12:31 | disposition home or self-care (01) ==
LOC: HO.MMNH1L 12:30
PROVIDERS: Visit Provider Hospitalist
DX: E11.9 Type 2 diabetes mellitus without complications (principal); N17.9 Acute kidney failure, unspecified
CPT/HCPCS: 81001

== ENCOUNTER 2024-05-13 15:47 | Inpatient (IN) | payer OTHER, SELFPAY ==
[2024-05-13] VITALS (14 sets, daily range): BP systolic 87–130; BP diastolic 29–68; PULSE 71–92; RESP 16–24; TEMP 36.4–38.6; O2SAT 91–99; BMI 30.8
--- NOTE | 2024-05-13 | ECG_ITS ---
Test Reason : WEAKNESS Blood Pressure : / mmHG Vent. Rate : 089 BPM Atrial Rate : 089 BPM P-R Int : 174 ms QRS Dur : 078 ms QT Int : 380 ms P-R-T Axes : 031 -06 038 degrees QTc Int : 462 ms Normal sinus rhythm Possible Inferior infarct , age undetermined Abnormal ECG When compared with ECG of 06-MAY-2024 23:54, Sinus rhythm has replaced Atrial flutter Criteria for Anterior infarct are no longer Present Borderline criteria for Inferior infarct are now Present Referred By: Generic ED Physician Electronically Signed By:VINNY ROSA
--- NOTE | ~2024-05-13 | XR_ITS ---
EXAMINATION: XR CHEST CLINICAL INFORMATION: Infectious workup COMPARISON: None available. TECHNIQUE: Frontal view of the chest was obtained. FINDINGS: No significant abnormality is noted involving the heart, lungs, mediastinum, bony thorax or soft tissues. XR/XR chest 1V IMPRESSION: Unremarkable examination. Electronically signed by: Gary Cain DO 05/13/2024 09:42 PM EDT RP
[2024-05-13 16:20] LABS: MANUAL DIFF FLAG NO
[2024-05-13 16:24] LABS: Eosinophils Absolute Auto 0.1 X10*3/uL (0.0-0.4); Eosinophils Percent Auto 1.1 % (0-4); Hematocrit 40.7 % (42.0-52.0); Hemoglobin 14.6 g/dl (14.0-18.0); Imm Gran Abs Auto 0.08 X10*3/uL (0.00-0.03); Imm Gran Pct Auto 0.9 % (0.0-0.4); Lymphocytes Absolute Auto 0.5 X10*3/uL (1.2-4.9); Lymphocytes Percent Auto 5.5 % (20-40); Mean Corpuscular HGB Conc 35.9 g/dl (31.0-36.0); Mean Corpuscular Hemoglobin 31.9 pg (27.0-33.0); Mean Corpuscular Volume 88.9 fL (80.0-98.0); Mean Platelet Volume 11.1 fL (9.4-12.4); Monocytes Absolute Auto 0.6 X10*3/uL (0.1-1.2); Monocytes Percent Auto 6.8 % (2-11); Neutrophils Absolute Auto 7.3 x10*3/uL (2.0-8.3); Neutrophils Percent Auto 85.7 % (45-73); Platelet Count 152 X10*3/uL (160-400); Red Blood Count 4.58 X10*6/uL (4.60-5.80); Red Cell Distribution Width 12.9 % (11.0-16.0); White Blood Count 8.5 X10*3/uL (4.8-10.8)
[2024-05-13 16:27] LABS: INTERNATIONAL NORM RATIO 1.5 (0.9-1.1); Prothrombin Time 17.2 SEC (10.9-12.4)
[2024-05-13 16:29] LABS: Partial Thromboplastin Time 28.6 SEC (26.0-36.8)
--- NOTE | 2024-05-13 16:30 | PC.NURSE ---
valentinoemma from [facility] d/t increased lethargy/weakness. pt also reports urinary retention/unable to fully empty bladder/frequency. denies abd pain/fever/chills. recently tested positive for covid a week ago when he presented to the ED last tuesday. upon ED arrival - alert and oriented but seemingly confused at times. slow to respond/follow commands. pt seems weak. vss and up to date aside from being hypotensive. pt on 2L via NC when EMS arrived to SNF - pt denies hx of asthma/copd/does not wear O2 baseline. pt placed on RA - SPO2 @ 94%. nsr on the cardiac cath tech. 20gIV placed in the right forearm - labs obtained/sent to lab. ekg performed by tech. bladder scan performed as pt was c/o difficulty urinating - 58ml displayed in scan results. pt able to urinate w/o difficulty into urinal. 60ml documented from urinal. family bedside for support. no sob/wob noted. respirations even/unlabored. plan of care ongoing. call gonzalez placed within reach.
[2024-05-13 16:37] LABS: Appearance Urine Cloudy; Color Urine Dark Yellow; Glucose Urine UA 500 mg/dL (Negative); Leukocyte Esterase Urine Trace (Negative); Nitrite Urine Negative (Negative); Specific Gravity - Urine 1.025 (1.005-1.025); UMIC TRIGGER UACC YES; Urine Blood Moderate (2+) (Negative); Urine Ketones Negative (Negative); Urine Protein 30 (1+) mg/dL (Neg-Trace)
[2024-05-13 16:46] LABS: Influenza A PCR NEGATIVE (Negative); Influenza B PCR NEGATIVE (Negative); Resp Syncy Virus RNA Qual PCR NEGATIVE (Negative); SARS COV2 PCR INHOUSE POSITIVE (Negative)
[2024-05-13 17:23] LABS: Bacteria Urine None Seen (None Seen); Hyaline Casts Urine 0-2 /LPF (0-2); Other Crystals Urine Present; UACC Culture Trigger YES
--- NOTE | 2024-05-13 17:27 | PC.NURSE ---
pt noted to be 91% on RA while asleep. family member who is bedside states hx of sleep apnea. pt placed on 2L via NC w/ good effect - SPO2 94%. no sob/wob noted. otherwise vss and up to date. nsr on the personnel monitor. plan of care ongoing. call gonzalez placed within reach.
[2024-05-13 17:36] LABS: Alanine Aminotransferase 47 U/L (0-40); Alkaline Phosphatase 76 U/L (39-117); Anion Gap 14 (12-20); Aspartate Amino Transferase 18 U/L (5-37); Bilirubin Total 1.2 mg/dL (0.0-1.0); Blood Urea Nitrogen 32 mg/dL (9-16); Calcium 8.6 mg/dL (8.4-10.2); Carbon Dioxide 24 mmol/L (22-29); Chloride 101 mmol/L (96-108); Creatinine Clr Calc Pharmacy 49.6; Estimated Glomerular Filt Rate 56; Glucose Random 253 mg/dL (60-115); Potassium 3.8 mmol/L (3.3-5.1); Sodium 135 mmol/L (135-145); Total Protein 5.9 g/dL (6.5-8.0)
--- NOTE | 2024-05-13 18:05 | PC.NURSE ---
family members state pt tested + covid last tuesday (05/06). swab results came back displaying pt tested + for covid. precautions now in place.
--- NOTE | 2024-05-13 20:37 | PC.NURSE ---
Assumed care of pt. Pt lying on stretcher, family at bedside. Pt with generalized weakness, fever p-resent at this time. Family indicating increased weakness over past 2 days. Neuro intact AxO x4, no hemiparesis at this time.
[2024-05-13] MEDS: Acetaminophen 325 MG TABLET 975 MG PO (20:51)
--- NOTE | 2024-05-13 21:06 | ED.MALEGU ---
HPI - Male Genitourinary General Chief complaint: Urogenital-Male Stated complaint: from snf, ?UTI, lethargic,weak Time Seen by Provider: 05/13/24 21:04 History of Present Illness ED Provider: Rebeca MCCALL Narrative: 84 yo male with pmhx of prostate cx, diabetes presenting for Related Data Home Medications ?Medication ?Instructions ?Recorded ?Confirmed atorvastatin 80 mg tablet 80 mg PO DAILY 05/07/24 05/07/24 carbamide peroxide 6.5 % ear drops 5 drp otic (ears) DAILY 05/07/24 05/07/24 carboxymethylcellulose sodium 0.5 1 drp ophthalmic (eye) QID 05/07/24 05/07/24 % eye drops finasteride 5 mg tablet 5 mg PO BEDTIME 05/07/24 05/07/24 insulin aspart U-100 100 unit/mL 24 unit subcut DAILY@1200 05/07/24 05/07/24 (3 mL) subcutaneous pen (Novolog FlexPen U-100 Insulin aspart) insulin aspart U-100 100 unit/mL 25 unit subcut DAILY 05/07/24 05/07/24 (3 mL) subcutaneous pen (Novolog FlexPen U-100 Insulin aspart) insulin aspart U-100 100 unit/mL 100 unit subcut DAILY@1700 05/07/24 05/07/24 (3 mL) subcutaneous pen (Novolog FlexPen U-100 Insulin aspart) lisinopril 5 mg tablet 5 mg PO DAILY 05/07/24 05/07/24 metformin 500 mg tablet 500 mg PO DAILY 05/07/24 05/07/24 multivitamin 1 tab PO DAILY 05/07/24 05/07/24 Previous Rx's ?Medication ?Instructions ?Recorded apixaban 5 mg tablet (Eliquis) 5 mg PO BID 30 days #60 tabs 05/11/24 insulin glargine-yfgn 100 unit/mL 45 unit (0.45 mL) subcut DAILY #15 05/11/24 (3 mL) subcutaneous pen mL metoprolol tartrate 25 mg tablet 25 mg PO BID 30 days #60 tabs 05/11/24 tamsulosin 0.4 mg capsule 0.4 mg PO BEDTIME 30 days #30 caps 05/11/24 Allergies Allergy/AdvReac Type Severity Reaction Status Date / Time No Known Allergies Allergy Verified 05/13/24 15:57 PMFSH Past Medical History Medical History Status post radiation therapy Prostate cancer Type 2 diabetes mellitus Social History Social History Household Members: None Housing: House Do you presently have visiting nurse or other home services: No Patient Tobacco Use Status: Never used Tobacco Smoked in Last 30 Days: No Use of substances other than those prescribed or required for medical reasons: No Advance Directives: No Advance Directives Information Provided: No Do you have a plan to hurt others: No Plan service: Yes Physical Exam Vital Signs: Vital Signs: Last Vital Signs Temp 99.1 F 05/13/24 22:00 Pulse 70 05/14/24 01:29 Resp 19 05/14/24 01:29 BP 109/56 L 05/14/24 01:29 Pulse Ox 96 05/14/24 01:29 O2 Del Method Nasal Cannula 05/14/24 01:29 O2 Flow Rate 2 05/14/24 01:29 Oxygen Flow Rate 2 05/13/24 15:50 BMI result Body Mass Index 30.8 Course Reevaluation(s) Reevaluation #1: I just evaluted patient and he is now hypotensive and mildy tachypneic. I am concerned for sepsis. abx ordered. Pt does have mild lower extremity edema and since there is concern for him retaining fluid I will provide IV fluids slowly starting with 1500ml Time: 21:38 Medications Administered Generic Name Dose Route Start Last Admin Trade Name Freq PRN Reason Stop Dose Admin Ceftriaxone Sodium 1 gm 05/14/24 01:15 05/14/24 01:39 Ceftriaxone Sodium 1 Gm Vial IVPUSH 1 gm 2200 ASHVIN Administration Discontinued Medications Generic Name Dose Route Start Last Admin Trade Name Freq PRN Reason Stop Dose Admin Acetaminophen 975 mg 05/13/24 20:28 05/13/24 20:51 Acetaminophen 325 Mg Tablet PO 05/13/24 20:29 975 mg ONCE ONE Administration Dexamethasone Sodium Phosphate 6 mg 05/14/24 01:00 05/14/24 01:39 Dexamethasone Sod Phosphate 4 Mg/Ml Vial IVPUSH 05/14/24 01:01 6 mg ONCE ONE Administration Piperacillin Sod/Tazobactam 100 mls @ 200 mls/hr 05/13/24 21:38 05/13/24 22:33 Sod 4.5 gm/ Sodium Chloride IV 05/13/24 22:07 Infused ONCE ONE Infusion Vancomycin HCl 1,500 mg/ 500 mls @ 333.333 mls/hr 05/13/24 21:38 05/13/24 23:34 Sodium Chloride IV 05/13/24 23:07 Infused ONCE ONE Infusion Sodium Chloride 1,000 mls @ 999 mls/hr 05/13/24 22:15 05/13/24 23:07 Ns IV 05/13/24 23:15 Infused .Q1H1M ASHVIN Infusion Sodium Chloride 500 mls @ 500 mls/hr 05/13/24 22:15 05/13/24 23:07 Ns IV 05/13/24 23:14 Infused .Q1H ASHVIN Infusion Sodium Chloride 1,000 mls @ 999 mls/hr 05/13/24 23:30 05/13/24 23:53 Ns IV 05/14/24 00:30 Infused .Q1H1M ASHVIN Infusion Insulin Glargine 36 unit 05/14/24 00:59 05/14/24 01:38 Insulin Glargine,Hum.Rec.Anlog 100 Unit/Ml 10 Ml Vial SUBCUT 05/14/24 01:00 36 unit ONCE ONE Administration Medical Decision Making Medical Decision Making MDM Narrative: 84-year-old male presenting for lethargy and weakness found to be febrile here in the ED. I have concerns for UTI and possible urinary retention. Patient is also COVID positive. I am also considering pneumonia, electrolyte abnormality, dehydration - 9:15pm - at the moment I am not concerned for sepsis as patient does not meet SIRS criteria - postvoid bladder scan with 58 mL; no concern for retention - Tylenol given for fever - labs notable for stable H&H, improved creatinine - UA notable for few RBCs and trace leukocytes - no signs of ischemia appreciated on EKG - 9:38pm pt now meets sirs criteria and given ditry UA and I am concerned for sepsis - fluids, cultures and broad-spectrum antibiotics ordered - patient admitted to medicine for sepsis Differential Diagnosis Differential Diagnoses: The differential diagnosis associated with the presentation includes UTI, urinary retention, COVID, pneumonia, sepsis Lab Data 05/13/24 16:15 05/13/24 16:15 Labs: Lab Results 05/13/24 05/13/24 05/13/24 Range/Units 16:01 16:15 16:27 WBC 8.5 (4.8-10.8) X10*3/uL RBC 4.58 L (4.60-5.80) X10*6/uL Hgb 14.6 (14.0-18.0) g/dl Hct 40.7 L (42.0-52.0) % MCV 88.9 (80.0-98.0) fL MCH 31.9 (27.0-33.0) pg MCHC 35.9 (31.0-36.0) g/dl RDW 12.9 (11.0-16.0) % Plt Count 152 L (160-400) X10*3/uL MPV 11.1 (9.4-12.4) fL Immature Gran % (Auto) 0.9 H (0.0-0.4) % Neut % (Auto) 85.7 H (45-73) % Lymph % (Auto) 5.5 L (20-40) % [place] % (Auto) 6.8 (2-11) % Eos % (Auto) 1.1 (0-4) % Baso % (Auto) 0.0 (0-2) % Lymph # (Auto) 0.5 L (1.2-4.9) X10*3/uL [place] # (Auto) 0.6 (0.1-1.2) X10*3/uL Eos # (Auto) 0.1 (0.0-0.4) X10*3/uL Baso # (Auto) 0.0 (0.0-0.2) X10*3/uL Abs Immat Gran (auto) 0.08 H (0.00-0.03) X10*3/uL Absolute Neuts (auto) 7.3 (2.0-8.3) x10*3/uL Absolute Nucleated RBC 0.000 (0.0-0.012) X10*3/uL Nucleated RBC % (auto) 0.0 (0.0-0.2) /100WBC PT 17.2 H D (10.9-12.4) SEC INR 1.5 H (0.9-1.1) APTT 28.6 (26.0-36.8) SEC VBG pH (7.32-7.43) VBG pCO2 mmHg VBG pO2 mmHg VBG HCO3 (22-26) mmol/L VBG O2 Saturation % VBG Base Excess mmol/L Sodium 135 (135-145) mmol/L Potassium 3.8 (3.3-5.1) mmol/L Chloride 101 (96-108) mmol/L Carbon Dioxide 24 (22-29) mmol/L Anion Gap 14 (12-20) BUN 32 H (9-16) mg/dL Creatinine 1.24 (0.5-1.4) mg/dL Estim Creat Clear Calc 49.6 Estimated GFR 56 Random Glucose 253 H (60-115) mg/dL Lactic Acid (0.5-2.0) mmol/L Calcium 8.6 (8.4-10.2) mg/dL Total Bilirubin 1.2 H (0.0-1.0) mg/dL AST 18 (5-37) U/L ALT 47 H (0-40) U/L Alkaline Phosphatase 76 (39-117) U/L B-Natriuretic Peptide (<100) pg/mL Total Protein 5.9 L (6.5-8.0) g/dL Albumin 3.0 L (3.5-5.0) g/dL Urine Color Dark Yellow Urine Appearance Cloudy Urine pH 5.0 (5.0-9.0) Ur Specific [place] 1.025 (1.005-1.025) Urine Protein 30 (1+) H (Neg-Trace) mg/dL Urine Glucose (UA) 500 H (Negative) mg/dL Urine Ketones Negative (Negative) mg/dL Urine Blood Moderate (2+) H (Negative) Urine Nitrite Negative (Negative) Ur Leukocyte Esterase Trace H (Negative) Urine RBC 6-10 H (0-2) /HPF Urine WBC 6-10 (0-5) /HPF Ur Squamous Epith Cells 6-10 (0-2) /HPF Other Crystals Present Urine Bacteria None Seen (None Seen) Hyaline Casts 0-2 (0-2) /LPF Influenza Type A (PCR) NEGATIVE (Negative) Influenza Type B (PCR) NEGATIVE (Negative) RSV RNA Qual (PCR) NEGATIVE (Negative) SARS-CoV-2 RNA (RT-PCR) POSITIVE A (Negative) 05/13/24 05/13/24 Range/Units 21:30 21:36 WBC (4.8-10.8) X10*3/uL RBC (4.60-5.80) X10*6/uL Hgb (14.0-18.0) g/dl Hct (42.0-52.0) % MCV (80.0-98.0) fL MCH (27.0-33.0) pg MCHC (31.0-36.0) g/dl RDW (11.0-16.0) % Plt Count (160-400) X10*3/uL MPV (9.4-12.4) fL Immature Gran % (Auto) (0.0-0.4) % Neut % (Auto) (45-73) % Lymph % (Auto) (20-40) % [place] % (Auto) (2-11) % Eos % (Auto) (0-4) % Baso % (Auto) (0-2) % Lymph # (Auto) (1.2-4.9) X10*3/uL [place] # (Auto) (0.1-1.2) X10*3/uL Eos # (Auto) (0.0-0.4) X10*3/uL Baso # (Auto) (0.0-0.2) X10*3/uL Abs Immat Gran (auto) (0.00-0.03) X10*3/uL Absolute Neuts (auto) (2.0-8.3) x10*3/uL Absolute Nucleated RBC (0.0-0.012) X10*3/uL Nucleated RBC % (auto) (0.0-0.2) /100WBC PT (10.9-12.4) SEC INR (0.9-1.1) APTT (26.0-36.8) SEC VBG pH 7.55 H (7.32-7.43) VBG pCO2 25 mmHg VBG pO2 149 mmHg VBG HCO3 23 (22-26) mmol/L VBG O2 Saturation 100.0 % VBG Base Excess 2.3 mmol/L Sodium (135-145) mmol/L Potassium (3.3-5.1) mmol/L Chloride (96-108) mmol/L Carbon Dioxide (22-29) mmol/L Anion Gap (12-20) BUN (9-16) mg/dL Creatinine (0.5-1.4) mg/dL Estim Creat Clear Calc Estimated GFR Random Glucose (60-115) mg/dL Lactic Acid 0.8 (0.5-2.0) mmol/L Calcium (8.4-10.2) mg/dL Total Bilirubin (0.0-1.0) mg/dL AST (5-37) U/L ALT (0-40) U/L Alkaline Phosphatase (39-117) U/L B-Natriuretic Peptide 12 (<100) pg/mL Total Protein (6.5-8.0) g/dL Albumin (3.5-5.0) g/dL Urine Color Urine Appearance Urine pH (5.0-9.0) Ur Specific [place] (1.005-1.025) Urine Protein (Neg-Trace) mg/dL Urine Glucose (UA) (Negative) mg/dL Urine Ketones (Negative) mg/dL Urine Blood (Negative) Urine Nitrite (Negative) Ur Leukocyte Esterase (Negative) Urine RBC (0-2) /HPF Urine WBC (0-5) /HPF Ur Squamous Epith Cells (0-2) /HPF Other Crystals Urine Bacteria (None Seen) Hyaline Casts (0-2) /LPF Influenza Type A (PCR) (Negative) Influenza Type B (PCR) (Negative) RSV RNA Qual (PCR) (Negative) SARS-CoV-2 RNA (RT-PCR) (Negative) Critical Care Time Critical Care Time Critical Care Time: Yes Total Critical Care Time: 45 Attestation: Pt became hemodynamically unstable while in the ED requiring fluids and tighter management Discharge Plan Discharge Clinical Impression: Urinary tract infection, Sepsis Patient Disposition: Admitted As Inpatient
[2024-05-13 21:41] LABS: VBG Base Excess 2.3 mmol/L; VBG HCO3 23 mmol/L (22-26); VBG pCO2 25 mmHg; VBG pH 7.55 (7.32-7.43); VBG pO2 149 mmHg
[2024-05-13 21:49] LABS: Lactic Acid 0.8 mmol/L (0.5-2.0)
[2024-05-13 21:56] LABS: Venous Blood Gas Refer to POC result
[2024-05-13 21:59] LABS: B Type Natriuretic Peptide 12 pg/mL (<100)
[2024-05-13] MEDS: vancomycin HCL 1,500 MG in 0.9 % Sodium Chloride 500 ML 333.33 MG IV (22:02)
[2024-05-13] MEDS: Piperacillin Sodium/Tazobactam 4.5 GM in 0.9 % Sodium Chloride 100 ML IV (22:03)
[2024-05-13] MEDS: 0.9 % Sodium Chloride 1,000 ML 999 ML IV ×2 (22:12→23:15)
[2024-05-13] MEDS: 0.9 % Sodium Chloride 500 ML IV (22:12)
--- NOTE | 2024-05-13 22:44 | PC.NURSE ---
Addendum entered by John Durham RN 05/13/24 22:45: Direct line to [facility] unit [phone] Original Note: Called MAGNO Hull, [facility] to notify pt admision order.
--- NOTE | 2024-05-13 23:38 | PC.NURSE ---
MD Alvarez notified of down trending SBP, additional IVF ordered, given per verbal, pending administration d/t pharmacy delay in approving.
[2024-05-14] VITALS (19 sets, daily range): BP systolic 94–128; BP diastolic 51–71; PULSE 62–77; RESP 12–22; TEMP 36.2–37.3; O2SAT 92–98; BMI 32.0
--- NOTE | 2024-05-14 00:58 | PM.IMHP ---
History of Present Illness Date of Service: 05/14/24 Chief Complaint: Weakness and lethargy This is a 84-year-old male with pertinent history of hypertension, prostate cancer status post radiation, insulin-dependent diabetes mellitus, paroxysmal atrial flutter on anticoagulation, BPH who was brought to the emergency department for evaluation of lethargy and weakness. Of note, patient was recently admitted on 05/07 with acute renal retention, acute kidney injury and new onset atrial flutter and discharged on 05/11 to rehab facility. Patient's daughter stated that patient was at rehab facility and his symptoms started 2 days prior to presentation. He has been lethargic and sleeping throughout the day. Also has been weak with easy fatigability. Noted poor p.o. intake. Daughter stated that patient's urine was sent and patient may have received a dose of antibiotics at outside facility for concerns of UTI. No fever, chills, chest pain, palpitations, abdominal pain, changes in bowel habits. In the emergency department, patient requiring 2 L supplemental oxygen and was given IV crystalloids with IV antibiotics. Review of Systems Constitutional: Constitutional: Reports fatigue, Reports malaise, Reports poor appetite and Reports weakness Respiratory: Respiratory: Reports cough Genitourinary: Genitourinary: Reports no additional male genitourinary complaints Neurologic: Reports weakness Endocrine: Endocrine: Reports fatigue [facility] Medical History Status post radiation therapy Prostate cancer Type 2 diabetes mellitus Pertinent family history: Not significant due to age Social History Household Members: None Housing: House Do you presently have visiting nurse or other home services: No Patient Tobacco Use Status: Never used Tobacco Smoked in Last 30 Days: No Use of substances other than those prescribed or required for medical reasons: No Advance Directives: No Advance Directives Information Provided: No Do you have a plan to hurt others: No Plan service: Yes Meds Allergies Allergy/AdvReac Type Severity Reaction Status Date / Time No Known Allergies Allergy Verified 05/13/24 15:57 Home Medications ?Medication ?Instructions ?Recorded ?Confirmed ?Last Taken ?Type atorvastatin 80 mg tablet 80 mg PO DAILY 05/07/24 05/07/24 Unknown History carbamide peroxide 6.5 % ear drops 5 drp otic (ears) DAILY 05/07/24 05/07/24 Unknown History carboxymethylcellulose sodium 0.5 1 drp ophthalmic (eye) QID 05/07/24 05/07/24 Unknown History % eye drops finasteride 5 mg tablet 5 mg PO BEDTIME 05/07/24 05/07/24 Unknown History insulin aspart U-100 100 unit/mL 24 unit subcut DAILY@1200 05/07/24 05/07/24 Unknown History (3 mL) subcutaneous pen (Novolog FlexPen U-100 Insulin aspart) insulin aspart U-100 100 unit/mL 25 unit subcut DAILY 05/07/24 05/07/24 Unknown History (3 mL) subcutaneous pen (Novolog FlexPen U-100 Insulin aspart) insulin aspart U-100 100 unit/mL 100 unit subcut DAILY@1700 05/07/24 05/07/24 Unknown History (3 mL) subcutaneous pen (Novolog FlexPen U-100 Insulin aspart) lisinopril 5 mg tablet 5 mg PO DAILY 05/07/24 05/07/24 Unknown History metformin 500 mg tablet 500 mg PO DAILY 05/07/24 05/07/24 Unknown History multivitamin 1 tab PO DAILY 05/07/24 05/07/24 Unknown History Physical Exam Vital Signs and Narrative: Vital Signs: Last Vital Signs Temp 99.1 F 05/13/24 22:00 Pulse 62 05/14/24 00:45 Resp 19 05/14/24 00:45 BP 112/57 L 05/14/24 00:45 Pulse Ox 97 05/14/24 00:45 O2 Del Method Nasal Cannula 05/14/24 00:45 O2 Flow Rate 2 05/14/24 00:45 Oxygen Flow Rate 2 05/13/24 15:50 BMI result Body Mass Index 30.8 Elderly male lying in bed in supplemental oxygen Neck supple, no JVD Regular rate and rhythm, S1-S2 heard Regular breath sounds bilaterally, no wheezing or crackles appreciated Abdomen soft nontender, no guarding, no rigidity Patient is awake, alert and oriented to self, place, time and person ; no focal motor deficit Psych: Normal mood Results Labs 05/13/24 16:15 05/13/24 16:15 Labs: Laboratory Results - last 24 hr 05/13/24 05/13/24 05/13/24 16:01 16:15 16:27 MCV 88.9 MCH 31.9 MCHC 35.9 RDW 12.9 Plt Count 152 L MPV 11.1 Immature Gran % (Auto) 0.9 H Neut % (Auto) 85.7 H Lymph % (Auto) 5.5 L [place] % (Auto) 6.8 Eos % (Auto) 1.1 Baso % (Auto) 0.0 Lymph # (Auto) 0.5 L [place] # (Auto) 0.6 Eos # (Auto) 0.1 Baso # (Auto) 0.0 Abs Immat Gran (auto) 0.08 H Absolute Neuts (auto) 7.3 Absolute Nucleated RBC 0.000 Nucleated RBC % (auto) 0.0 PT 17.2 H D INR 1.5 H APTT 28.6 VBG pH VBG pCO2 VBG pO2 VBG HCO3 VBG O2 Saturation VBG Base Excess Anion Gap 14 Estim Creat Clear Calc 49.6 Estimated GFR 56 Random Glucose 253 H Lactic Acid Calcium 8.6 Total Bilirubin 1.2 H AST 18 ALT 47 H Alkaline Phosphatase 76 B-Natriuretic Peptide Total Protein 5.9 L Albumin 3.0 L Urine Color Dark Yellow Urine Appearance Cloudy Urine pH 5.0 [address] [place] 1.025 Urine Protein 30 (1+) H Urine Glucose (UA) 500 H Urine Ketones Negative Urine Blood Moderate (2+) H Urine Nitrite Negative Ur Leukocyte Esterase Trace H Urine RBC 6-10 H Urine WBC 6-10 Ur Squamous Epith Cells 6-10 Other Crystals Present Urine Bacteria None Seen Hyaline Casts 0-2 Influenza Type A (PCR) NEGATIVE Influenza Type B (PCR) NEGATIVE RSV RNA Qual (PCR) NEGATIVE SARS-CoV-2 RNA (RT-PCR) POSITIVE A 05/13/24 05/13/24 21:30 21:36 MCV MCH MCHC RDW Plt Count MPV Immature Gran % (Auto) Neut % (Auto) Lymph % (Auto) [place] % (Auto) Eos % (Auto) Baso % (Auto) Lymph # (Auto) [place] # (Auto) Eos # (Auto) Baso # (Auto) Abs Immat Gran (auto) Absolute Neuts (auto) Absolute Nucleated RBC Nucleated RBC % (auto) PT INR APTT VBG pH 7.55 H VBG pCO2 25 VBG pO2 149 VBG HCO3 23 VBG O2 Saturation 100.0 VBG Base Excess 2.3 Anion Gap Estim Creat Clear Calc Estimated GFR Random Glucose Lactic Acid 0.8 Calcium Total Bilirubin AST ALT Alkaline Phosphatase B-Natriuretic Peptide 12 Total Protein Albumin Urine Color Urine Appearance Urine pH Ur Specific [place] Urine Protein Urine Glucose (UA) Urine Ketones Urine Blood Urine Nitrite Ur Leukocyte Esterase Urine RBC Urine WBC Ur Squamous Epith Cells Other Crystals Urine Bacteria Hyaline Casts Influenza Type A (PCR) Influenza Type B (PCR) RSV RNA Qual (PCR) SARS-CoV-2 RNA (RT-PCR) Imaging Radiologist's Impressions: Impressions Chest X-Ray 05/13/24 21:12 IMPRESSION: Unremarkable examination. Electronically signed by: Gary Cain DO 05/13/2024 09:42 PM EDT RP Assessment and Plan (1) Sepsis: Status: Acute (2) Hypoxia: Status: Acute (3) COVID: Status: Acute Plan This is a 84-year-old male with pertinent history of hypertension, prostate cancer status post radiation, insulin-dependent diabetes mellitus, paroxysmal atrial flutter on anticoagulation, BPH who was brought to the emergency department for evaluation of lethargy and weakness. #. Acute hypoxic respiratory failure and sepsis secondary to COVID-19 infection: Will admit patient with supplemental oxygen. Initiating dexamethasone 6 mg daily. Monitor oxygen saturation and wean as tolerated. #. ?Acute UTI: Urine not conclusive of UTI but ?pt recieved dose of abx at outisde facility. On empiric IV ceftriaxone. Monitor urine culture. #. Paroxysmal atrial flutter: On Eliquis #. Insulin-dependent diabetes mellitus with hyperglycemia: Initiating basal plus insulin regimen #. BPH: On finasteride and Flomax Med rec pending DVT prophylaxis: Lovenox Full code. Discussed with daughter at bedside Admit as inpatient and will require two night minimum hospital stay for supplemental oxygen, systemic steroids, IV antibiotics (as above), which is not possible in a lesser acute setting. Quality Stroke Does the patient have a stroke diagnosis?: No VTE Prior VTE?: No VTE Risk Level:: Medical - moderate - high VTE Device Contraindication: Treatment Not Indicated VTE Drug Contraindication: N/A - Med Ordered
[2024-05-14] MEDS: Insulin Glargine,Hum.rec.anlog 100 UNIT/ML 10 ML VIAL 36 UNIT SUBCUT (01:38)
[2024-05-14] MEDS: cefTRIAXone sodium 1 GM VIAL IVPUSH ×2 (01:39→21:24)
[2024-05-14] MEDS: dexAMETHasone sod phosphate 4 MG/ML VIAL 6 MG IVPUSH (01:39)
--- NOTE | 2024-05-14 01:54 | MHC.EDTECH ---
condom cath placed on patient. patient tolerated well
[2024-05-14 04:27] LABS: PLT CLUMP 1; SCAN SMEAR FLAG 1
[2024-05-14 04:29] LABS: Eosinophils Absolute Auto 0.1 X10*3/uL (0.0-0.4); Eosinophils Percent Auto 1.5 % (0-4); Hematocrit 37.2 % (42.0-52.0); Imm Gran Abs Auto 0.04 X10*3/uL (0.00-0.03); Imm Gran Pct Auto 0.6 % (0.0-0.4); Lymphocytes Absolute Auto 0.3 X10*3/uL (1.2-4.9); Lymphocytes Percent Auto 4.2 % (20-40); Mean Corpuscular HGB Conc 34.9 g/dl (31.0-36.0); Mean Corpuscular Hemoglobin 31.7 pg (27.0-33.0); Mean Corpuscular Volume 90.7 fL (80.0-98.0); Mean Platelet Volume 11.4 fL (9.4-12.4); Monocytes Absolute Auto 0.4 X10*3/uL (0.1-1.2); Monocytes Percent Auto 5.5 % (2-11); Neutrophils Absolute Auto 6.1 x10*3/uL (2.0-8.3); Neutrophils Percent Auto 88.2 % (45-73)
[2024-05-14 04:32] LABS: MANUAL DIFF FLAG NO; Platelet Count 130 X10*3/uL (160-400); White Blood Count 6.9 X10*3/uL (4.8-10.8)
[2024-05-14 04:43] LABS: Anion Gap 14 (12-20); Blood Urea Nitrogen 29 mg/dL (9-16); Calcium 7.6 mg/dL (8.4-10.2); Carbon Dioxide 21 mmol/L (22-29); Chloride 107 mmol/L (96-108); Creatinine Clr Calc Pharmacy 52.2; Estimated Glomerular Filt Rate 59; Glucose Random 251 mg/dL (60-115); Potassium 4.1 mmol/L (3.3-5.1); Sodium 138 mmol/L (135-145)
--- NOTE | 2024-05-14 07:25 | PHA.MEDREC ---
Pharmacy Consult ? Medication Reconciliation Pharmacy has completed the medication reconciliation. Patient with list from Jere Spaulding
[2024-05-14 07:33] LABS: Glucose, Whole Blood 254 mg/dL (60-115)
[2024-05-14] MEDS: Insulin Lispro 100 UNIT/ML 3 ML VIAL SUBCUT ×4 (08:13→21:05)
[2024-05-14] MEDS: 0.9 % Sodium Chloride Flush 3 ML SYRINGE IVFLUSH ×3 (08:13→21:04)
--- NOTE | 2024-05-14 09:56 | MHC.CM.PN ---
Patient is Covid (+) and [place] [facility] [place] [facility], under his Medicare benefit (CM from recent/[facility], who indicated that Patient has no STR nor LTC [facility] benefits). Tentative plan is for Patient to return to [facility] to complete STR, pending PT Eval. CM has initiated and will follow for dc planning.PCP is Dr. Didier Serrano.Patient will likely require BLS transport back to [facility].
--- NOTE | 2024-05-14 11:11 | PM.EVENT ---
Event Note Date of Service: 05/14/24 Event Note: This is a 84-year-old male with pertinent history of hypertension, prostate cancer status post radiation, insulin-dependent diabetes mellitus, paroxysmal atrial flutter on anticoagulation, BPH who was brought to the emergency department for evaluation of lethargy and weakness. Sepsis related to possible UTI UA not conclusive of UTI no consolidation noted on CXR On empiric IV ceftriaxone. Follow urine and blood culture. Covid positive (continued from 05/06/24) no hypoxia on room air Paroxysmal atrial flutter On Eliquis and BB Insulin-dependent diabetes mellitus with hyperglycemia ss, ada diet Hypertension Continue lisinopril follow-up blood pressure closely BPH On finasteride and Flomax DVT prophylaxis: Loverodríguezx Attending Dr. Cain Full code. Discussed with daughter at bedside Time Spent With Patient Time: Total time managing care of this patient today ____ minutes.
[2024-05-14 11:34] LABS: Glucose, Whole Blood 347 mg/dL (60-115)
--- NOTE | 2024-05-14 12:23 | MHC.CM.PN ---
CM met with Patient's Daughter/Edyta, who confirmed that [facility] has the correct contact information for her and her Sister/Yadi and also to provide CM with Patient's Son/Stefan's information ([phone]). Patient/ family are willing to return to [facility] but did not choose to pay privately to hold the bed and they are open to other facilities if [facility] does not have an available bed at time of dc. CM will follow.
[2024-05-14 16:25] LABS: Glucose, Whole Blood 395 mg/dL (60-115)
[2024-05-14] MEDS: Artificial Tears 15 ML DROPS 1 DROP EYE-BOTH ×2 (16:41→21:24)
[2024-05-14 20:36] LABS: Glucose, Whole Blood 372 mg/dL (60-115)
[2024-05-14] MEDS: Melatonin 3 MG TABLET 6 MG PO (21:01)
[2024-05-14] MEDS: Metoprolol Tartrate 25 MG TABLET PO (21:01)
[2024-05-14] MEDS: Acetaminophen 325 MG TABLET 650 MG PO (21:02)
[2024-05-14] MEDS: Tamsulosin HCL 0.4 MG CAPSULE PO (21:02)
[2024-05-14] MEDS: Apixaban 5 MG TABLET PO (21:02)
[2024-05-14] MEDS: Finasteride 5 MG TABLET PO (21:02)
[2024-05-14] MEDS: Insulin Glargine,Hum.rec.anlog 100 UNIT/ML 10 ML VIAL 45 UNIT SUBCUT (21:05)
[2024-05-15] VITALS (7 sets, daily range): BP systolic 108–134; BP diastolic 54–70; PULSE 55–72; RESP 12–20; TEMP 36–36.8; O2SAT 94–96
[2024-05-15 08:10] LABS: Ammonia 33 umol/L (13-55)
[2024-05-15 08:16] LABS: Alanine Aminotransferase 34 U/L (0-40); Albumin Level 2.5 g/dL (3.5-5.0); Alkaline Phosphatase 74 U/L (39-117); Anion Gap 11 (12-20); Aspartate Amino Transferase 20 U/L (5-37); Bilirubin Direct 0.2 mg/dL (0.0-0.5); Bilirubin Total 0.4 mg/dL (0.0-1.0); Blood Urea Nitrogen 28 mg/dL (9-16); Calcium 8.2 mg/dL (8.4-10.2); Carbon Dioxide 21 mmol/L (22-29); Chloride 110 mmol/L (96-108); Creatinine Clr Calc Pharmacy 57.5; Estimated Glomerular Filt Rate > 60; Glucose Random 247 mg/dL (60-115); Potassium 4.3 mmol/L (3.3-5.1); Sodium 138 mmol/L (135-145); Total Protein 5.2 g/dL (6.5-8.0)
--- NOTE | 2024-05-15 08:25 | HO.PM.IMPN ---
Subjective Subjective Date of Service: 05/15/24 Interval History: Seen and examined this morning Follow-up for encephalopathy No shortness a breath, no cough Review of Systems Review of Systems: Yes all other systems are reviewed and are negative Constitutional Constitutional: Denies chills and Denies fever(s) Cardiovascular Cardiovascular: Denies chest pain, Denies palpitations and Denies dyspnea Respiratory Respiratory: Denies cough and Denies dyspnea Gastrointestinal Gastrointestinal: Denies abdominal pain Endocrine Endocrine: Denies palpitations Physical Exam Vital Signs: Vital Signs: Last Vital Signs Temp 96.8 F 05/15/24 04:15 Pulse 56 05/15/24 04:15 Resp 14 05/15/24 04:15 BP 129/59 L 05/15/24 04:15 Pulse Ox 96 05/15/24 04:15 O2 Del Method Room Air 05/15/24 04:15 O2 Flow Rate 2 05/14/24 07:04 Oxygen Flow Rate 2 05/13/24 15:50 BMI result Body Mass Index 32.0 Appearing in no acute distress lung sounds are clear to auscultation heart regular rate rhythm, clear S1, S2 positive bowel sounds, abdomen is soft, nontender neuro patient is alert x3, no focal deficits Objective Data Active Medications Acetaminophen (Acetaminophen 325 Mg Tablet) 650 mg PO Q6H PRN PRN Reason: Pain, Mild (Pain Scale 1-3), fever or headache Last Admin: 05/14/24 21:02 Dose: 650 mg Documented By: GUANACO Apixaban (Apixaban 5 Mg Tablet) 5 mg PO BID [facility] Last Admin: 05/14/24 21:02 Dose: 5 mg Documented By: GUANACO Artificial Tears (Artificial Tears 15 Ml Drops) 1 drop EYE-BOTH QID [facility] Last Admin: 05/14/24 21:24 Dose: 1 drop Documented By: GUANACO Atorvastatin Calcium (Atorvastatin Calcium 80 Mg Tablet) 80 mg PO DAILY [facility] Bisacodyl (Bisacodyl 10 Mg Supp.Rect) 10 mg DE DAILY PRN PRN Reason: Constipation Calcium Carbonate (Calcium Carbonate 750 Mg Tab.Chew) 750 mg PO Q4H PRN PRN Reason: Heartburn Carbamide Peroxide (Carbamide Peroxide 6.5% Otic 15 Ml Drpbtl) 5 drop EAR-BOTH DAILY [facility] Ceftriaxone Sodium (Ceftriaxone Sodium 1 Gm Vial) 1 gm IVPUSH 2200 [facility] Last Admin: 05/14/24 21:24 Dose: 1 gm Documented By: GUANACO Finasteride (Finasteride 5 Mg Tablet) 5 mg PO BEDTIME [facility] Last Admin: 05/14/24 21:02 Dose: 5 mg Documented By: GUANACO Glucose (Glucose Gel 15 Gm Gel..Gram.) 15 gm PO Q15M PRN; Protocol PRN Reason: per Hypoglycemia Standing Ord. Dextrose (D10) 250 mls @ 750 mls/hr IV Q15M PRN; Protocol PRN Reason: per Hypoglycemia Standing Ord. Insulin Glargine (Insulin Glargine,Hum.Rec.Anlog 100 Unit/Ml 10 Ml Vial) 45 unit SUBCUT BEDTIME [facility] Last Admin: 05/14/24 21:05 Dose: 45 unit Documented By: GUANACO Insulin Human Lispro (Insulin Lispro 100 Unit/Ml 3 Ml Vial) 0 unit SUBCUT QIDACHS [facility]; Protocol Last Admin: 05/14/24 21:05 Dose: 10 unit Documented By: GUANACO Insulin Human Lispro (Insulin Lispro 100 Unit/Ml 3 Ml Vial) 5 unit SUBCUT QIDACHS [facility] Magnesium Hydroxide (Milk Of Magnesia 30 Ml Oral.Susp) 30 ml PO DAILY PRN PRN Reason: Constipation Melatonin (Melatonin 3 Mg Tablet) 6 mg PO BEDTIME PRN PRN Reason: Insomnia Last Admin: 05/14/24 21:01 Dose: 6 mg Documented By: GUANACO Metoprolol Tartrate (Metoprolol Tartrate 25 Mg Tablet) 25 mg PO BID [facility]; Protocol Last Admin: 05/14/24 21:01 Dose: 25 mg Documented By: GUANACO Multivitamins/Vitamin C (Multivitamin Tablet) 1 tab PO DAILY [facility] Ondansetron HCl (Ondansetron Hcl 4 Mg/2 Ml Vial) 4 mg IVPUSH Q8H PRN PRN Reason: Nausea and Vomiting Sodium Biphosphate/Sodium Phosphate (Sodium Phosphate,Granite-Dibasic 133 Ml Enema) 118 ml DE DAILY PRN PRN Reason: Constipation Sodium Chloride (0.9 % Sodium Chloride Flush 3 Ml Syringe) 3 ml IVFLUSH QSHIFT [facility] Last Admin: 05/14/24 21:04 Dose: 3 ml Documented By: GUANACO Tamsulosin HCl (Tamsulosin Hcl 0.4 Mg Capsule) 0.4 mg PO BEDTIME [facility] Last Admin: 05/14/24 21:02 Dose: 0.4 mg Documented By: GUANACO Labs 05/14/24 04:21 05/15/24 07:48 Labs: Laboratory Results - last 24 hr 05/14/24 05/14/24 05/14/24 11:16 15:53 20:31 Anion Gap Estim Creat Clear Calc Estimated GFR POC Glucose 347 H 395 H* 372 H* Random Glucose Calcium Total Bilirubin Direct Bilirubin AST ALT Alkaline Phosphatase Ammonia Total Protein Albumin 05/15/24 07:48 Anion Gap 11 L Estim Creat Clear Calc 57.5 Estimated GFR > 60 POC Glucose Random Glucose 247 H Calcium 8.2 L D Total Bilirubin 0.4 Direct Bilirubin 0.2 AST 20 ALT 34 Alkaline Phosphatase 74 Ammonia 33 Total Protein 5.2 L Albumin 2.5 L Microbiology Microbiology Results: Microbiology 05/13/24 21:58 Blood Culture - Preliminary Blood - Venous No growth after 24 hours. 05/13/24 21:58 Blood Culture - Preliminary Blood - Venous No growth after 24 hours. 05/13/24 16:27 Urine Culture - Preliminary Urine clean catch - Clean Catch Midstream No growth to date. Assessment and Plan (1) Paroxysmal atrial flutter: Status: Acute (2) Urinary retention with incomplete bladder emptying: Status: Acute (3) MARCELLO (acute kidney injury): Status: Acute Plan This is a 84-year-old male with pertinent history of hypertension, prostate cancer status post radiation, insulin-dependent diabetes mellitus, paroxysmal atrial flutter on anticoagulation, BPH who was brought to the emergency department for evaluation of lethargy and weakness. Sepsis related to possible UTI. Sepsis resolved UA not conclusive of UTI no consolidation noted on CXR continue empiric IV ceftriaxone. urine and blood culture neg ELIOT inpatient sleep study from 05/10/24 showing severe degree of sleep apnea likely causing episodes of sleepiness and lethargy during the day will trial cpap while inpatient Likely early vascular dementia MOCA indicating difficulty with executive functioning, memory recall and some language. PT/OT rec STR Covid positive (continued from 05/06/24) no hypoxia on room air Paroxysmal atrial flutter On Eliquis and BB Insulin-dependent diabetes mellitus with hyperglycemia ss, ada diet added mealtime insulin for elevated BG readings Hypertension Continue lisinopril follow-up blood pressure closely BPH On finasteride and Flomax DISPO plan for STR when medically clear DVT prophylaxis: Lovenox Attending Dr. Cain Full code. Discussed with daughter at bedside Quality Stroke Does the patient have a stroke diagnosis?: No VTE Prior VTE?: No VTE Risk Level:: Medical - moderate - high VTE Device Contraindication: Treatment Not Indicated VTE Drug Contraindication: N/A - Med Ordered
[2024-05-15 08:43] LABS: Glucose, Whole Blood 246 mg/dL (60-115)
[2024-05-15] MEDS: Insulin Lispro 100 UNIT/ML 3 ML VIAL SUBCUT ×8 (09:08→20:46)
[2024-05-15] MEDS: Artificial Tears 15 ML DROPS 1 DROP EYE-BOTH ×3 (09:08→17:04)
[2024-05-15] MEDS: Apixaban 5 MG TABLET PO ×2 (09:09→20:43)
[2024-05-15] MEDS: lisinopriL 5 MG TABLET PO (09:09)
[2024-05-15] MEDS: Metoprolol Tartrate 25 MG TABLET PO ×2 (09:09→20:47)
[2024-05-15] MEDS: Atorvastatin Calcium 80 MG TABLET PO (09:09)
[2024-05-15] MEDS: 0.9 % Sodium Chloride Flush 3 ML SYRINGE IVFLUSH ×3 (09:09→20:46)
[2024-05-15] MEDS: Multivitamin TABLET 1 TAB PO (09:09)
[2024-05-15] MEDS: Carbamide Peroxide 6.5% Otic 15 ML DRPBTL 5 DROP EAR-BOTH (09:14)
--- NOTE | 2024-05-15 10:26 | MHC.CM.PN ---
EMR REVIEWED, PER HOSPITALIST MOCA/PT ORDERED, PT WILL ALSO NEED CPAP AND RESPIRATORY AWARE, CM SPOKE TO PT'S DTR JAYCEE AT NUMBER ON FILE D/T PT'S COVID19 STATUS, JAYCEE REPORTS SHE IS NOT OPPOSED TO PT RETURNING TO [facility] HOWEVER WOULD LIKE REFERRAL EXPANDED TO [place], CM TO FOLLOW-UP W/ JAYCEE ONCE BED OFFERS ARE RECEIVED
[2024-05-15 11:54] LABS: Glucose, Whole Blood 266 mg/dL (60-115)
--- NOTE | 2024-05-15 12:55 | P.CDIM_ITS ---
PROVIDER RESPONSE TEXT: To clarify, the appropriate diagnosis supported by the clinical indicators: After study respiratory failure has been ruled out QUERY TEXT: PHYSICIAN'S DOCUMENTATION REQUEST Date of Query: 05/15/2024 08:10 AM EDT Patient Name: Carl Houser Admit Date: 05/14/2024 Dear Jodi Perez WELD FITTER, A review of the medical record indicates additional documentation may be needed. Please review below and update the documentation accordingly. The patient's respiratory clinical indicators were the following: H&P 05/14 - Acute hypoxic respiratory failure due to Sepsis secondary to Covid infection. RR 22 Room Air Pulse ox 96 ABG's performed. Event note 05/14 - Covid positive, no hypoxia, on room air. Based on the above information and the recognized standard for respiratory failure could you please v erify this diagnoses is still accurate and reflective of the patient's condition to ensure quality of the medical record. Con sistency of a noted diagnosis: Respiratory failure is/was present resolved, possible, probable, suspected etc. After study respiratory failure has been ruled out Other (explain) Clinically unable to determine (explain) Thank you, Maria Antonia Roa, CCS, CDIS Use of terms such as suspected, likely, concern for, or probable (associated with a specific diagnosi s that is being evaluated, monitored, or treated as if it exists) are acceptable and can be coded in the inpatient se tting, when documented at the time of discharge. Please use your independent medical judgment in providing your response. THIS QUERY IS PART OF THE PERMANENT MEDICAL RECORD
[2024-05-15 16:59] LABS: Glucose, Whole Blood 229 mg/dL (60-115)
[2024-05-15 20:18] LABS: Glucose, Whole Blood 215 mg/dL (60-115)
[2024-05-15] MEDS: Insulin Glargine,Hum.rec.anlog 100 UNIT/ML 10 ML VIAL 45 UNIT SUBCUT (20:43)
[2024-05-15] MEDS: Finasteride 5 MG TABLET PO (20:43)
[2024-05-15] MEDS: cefTRIAXone sodium 1 GM VIAL IVPUSH (20:46)
[2024-05-15] MEDS: Tamsulosin HCL 0.4 MG CAPSULE PO (20:47)
[2024-05-15] MEDS: Acetaminophen 325 MG TABLET 650 MG PO (20:58)
[2024-05-15] MEDS: Melatonin 3 MG TABLET 6 MG PO (20:59)
[2024-05-16] VITALS (8 sets, daily range): BP systolic 102–143; BP diastolic 48–75; PULSE 61–80; RESP 12–20; TEMP 36.1–36.6; O2SAT 94–98
--- NOTE | 2024-05-16 07:44 | P.PNIM_ITS ---
Subjective Subjective Date of Service: 05/16/24 Interval History: Seen and examined this morning Follow-up for encephalopathy No shortness a breath, no cough Review of Systems Review of Systems: Yes all other systems are reviewed and are negative Constitutional Constitutional: Denies chills and Denies fever(s) Cardiovascular Cardiovascular: Denies chest pain, Denies palpitations and Denies dyspnea Respiratory Respiratory: Denies cough and Denies dyspnea Gastrointestinal Gastrointestinal: Denies abdominal pain Endocrine Endocrine: Denies palpitations Physical Exam 2 Vital Signs: Vital Signs: Last Vital Signs Temp 96.9 F 05/16/24 03:43 Pulse 61 05/16/24 03:43 Resp 14 05/16/24 03:43 BP 117/68 05/16/24 03:43 Pulse Ox 98 05/16/24 03:43 O2 Del Method Room Air 05/16/24 03:43 O2 Flow Rate 2 05/14/24 07:04 Oxygen Flow Rate 2 05/13/24 15:50 BMI result Body Mass Index 32.0 Appearing in no acute distress lung sounds are clear to auscultation heart regular rate rhythm, clear S1, S2 positive bowel sounds, abdomen is soft, nontender neuro patient is alert x3, no focal deficits Objective Data Active Medications Acetaminophen (Acetaminophen 325 Mg Tablet) 650 mg PO Q6H PRN PRN Reason: Pain, Mild (Pain Scale 1-3), fever or headache Last Admin: 05/15/24 20:58 Dose: 650 mg Documented By: DEENA Apixaban (Apixaban 5 Mg Tablet) 5 mg PO BID [facility] Last Admin: 05/15/24 20:43 Dose: 5 mg Documented By: DEENA Artificial Tears (Artificial Tears 15 Ml Drops) 1 drop EYE-BOTH QID [facility] Last Admin: 05/15/24 23:54 Dose: Not Given Documented By: DENEA Non-Admin Reason: Patient Refused Atorvastatin Calcium (Atorvastatin Calcium 80 Mg Tablet) 80 mg PO DAILY [facility] Last Admin: 05/15/24 09:09 Dose: 80 mg Documented By: LISA Bisacodyl (Bisacodyl 10 Mg Supp.Rect) 10 mg [place] DAILY PRN PRN Reason: Constipation Calcium Carbonate (Calcium Carbonate 750 Mg Tab.Chew) 750 mg PO Q4H PRN PRN Reason: Heartburn Carbamide Peroxide (Carbamide Peroxide 6.5% Otic 15 Ml Drpbtl) 5 drop EAR-BOTH DAILY [facility] Last Admin: 05/15/24 09:14 Dose: 5 drop Documented By: LISA Ceftriaxone Sodium (Ceftriaxone Sodium 1 Gm Vial) 1 gm IVPUSH 2199 [facility] Last Admin: 05/15/24 20:46 Dose: 1 gm Documented By: DEENA Finasteride (Finasteride 5 Mg Tablet) 5 mg PO BEDTIME [facility] Last Admin: 05/15/24 20:43 Dose: 5 mg Documented By: DEENA Glucose (Glucose Gel 15 Gm Gel..Gram.) 15 gm PO Q15M PRN; Protocol PRN Reason: per Hypoglycemia Standing Ord. Dextrose (D10) 250 mls @ 750 mls/hr IV Q15M PRN; Protocol PRN Reason: per Hypoglycemia Standing Ord. Insulin Glargine (Insulin Glargine,Hum.Rec.Anlog 100 Unit/Ml 10 Ml Vial) 45 unit SUBCUT BEDTIME [facility] Last Admin: 05/15/24 20:43 Dose: 45 unit Documented By: DEENA Insulin Human Lispro (Insulin Lispro 100 Unit/Ml 3 Ml Vial) 0 unit SUBCUT QIDACHS [facility]; Protocol Last Admin: 05/15/24 20:44 Dose: 4 unit Documented By: DEENA Insulin Human Lispro (Insulin Lispro 100 Unit/Ml 3 Ml Vial) 5 unit SUBCUT QIDACHS [facility] Last Admin: 05/15/24 20:46 Dose: 5 unit Documented By: DEENA Lisinopril (Lisinopril 5 Mg Tablet) 5 mg PO DAILY [facility]; Protocol Last Admin: 05/15/24 09:09 Dose: 5 mg Documented By: LISA Magnesium Hydroxide (Milk Of Magnesia 30 Ml Oral.Susp) 30 ml PO DAILY PRN PRN Reason: Constipation Melatonin (Melatonin 3 Mg Tablet) 6 mg PO BEDTIME PRN PRN Reason: Insomnia Last Admin: 05/15/24 20:59 Dose: 6 mg Documented By: DEENA Metoprolol Tartrate (Metoprolol Tartrate 25 Mg Tablet) 25 mg PO BID [facility]; Protocol Last Admin: 05/15/24 20:47 Dose: 25 mg Documented By: DEENA Multivitamins/Vitamin C (Multivitamin Tablet) 1 tab PO DAILY [facility] Last Admin: 05/15/24 09:09 Dose: 1 tab Documented By: LISA Ondansetron HCl (Ondansetron Hcl 4 Mg/2 Ml Vial) 4 mg IVPUSH Q8H PRN PRN Reason: Nausea and Vomiting Sodium Biphosphate/Sodium Phosphate (Sodium Phosphate,Lane-Dibasic 133 Ml Enema) 118 ml [place] DAILY PRN PRN Reason: Constipation Sodium Chloride (0.9 % Sodium Chloride Flush 3 Ml Syringe) 3 ml IVFLUSH QSHIFT [facility] Last Admin: 05/15/24 20:46 Dose: 3 ml Documented By: DEENA Tamsulosin HCl (Tamsulosin Hcl 0.4 Mg Capsule) 0.4 mg PO BEDTIME [facility] Last Admin: 05/15/24 20:47 Dose: 0.4 mg Documented By: DEENA Labs 05/14/24 04:21 05/15/24 07:48 Labs: Laboratory Results - last 24 hr 05/15/24 05/15/24 05/15/24 07:48 08:39 11:41 Anion Gap 11 L Estim Creat Clear Calc 57.5 Estimated GFR > 60 POC Glucose 246 H 266 H Random Glucose 247 H Calcium 8.2 L D Total Bilirubin 0.4 Direct Bilirubin 0.2 AST 20 ALT 34 Alkaline Phosphatase 74 Ammonia 33 Total Protein 5.2 L Albumin 2.5 L 05/15/24 05/15/24 16:35 20:08 Anion Gap Estim Creat Clear Calc Estimated GFR POC Glucose 229 H 215 H Random Glucose Calcium Total Bilirubin Direct Bilirubin AST ALT Alkaline Phosphatase Ammonia Total Protein Albumin Microbiology Microbiology Results: Microbiology 05/13/24 21:58 Blood Culture - Preliminary Blood - Venous No growth after 48 hours. 05/13/24 21:58 Blood Culture - Preliminary Blood - Venous No growth after 48 hours. 05/13/24 16:27 Urine Culture - Final Urine clean catch - Clean Catch Midstream No growth. Assessment and Plan (1) Paroxysmal atrial flutter: Status: Acute (2) Urinary retention with incomplete bladder emptying: Status: Acute (3) MARCELLO (acute kidney injury): Status: Acute Plan This is a 84-year-old male with pertinent history of hypertension, prostate cancer status post radiation, insulin-dependent diabetes mellitus, paroxysmal atrial flutter on anticoagulation, BPH who was brought to the emergency department for evaluation of lethargy and weakness. Sepsis related to possible UTI. Sepsis resolved UA not conclusive of UTI no consolidation noted on CXR urine and blood culture neg initially on Rocephin, complete 5 days course of abx with ceftin ELIOT inpatient sleep study from 05/10/24 showing severe degree of sleep apnea likely causing episodes of sleepiness and lethargy during the day cpap while inpatient Likely early vascular dementia MOCA indicating difficulty with executive functioning, memory recall and some language. PT/OT rec STR Covid positive (continued from 05/06/24) no hypoxia on room air Paroxysmal atrial flutter On Eliquis and BB Insulin-dependent diabetes mellitus with hyperglycemia ss, ada diet added mealtime insulin for elevated BG readings Hypertension Continue lisinopril follow-up blood pressure closely BPH On finasteride and Flomax DISPO plan for STR when bed available DVT prophylaxis: Lovedrew Attending Dr. Cain Full code. Discussed with daughter at bedside Quality Stroke Does the patient have a stroke diagnosis?: No VTE Prior VTE?: No VTE Risk Level:: Medical - moderate - high VTE Device Contraindication: Treatment Not Indicated VTE Drug Contraindication: N/A - Med Ordered
[2024-05-16 08:01] LABS: Glucose, Whole Blood 129 mg/dL (60-115)
[2024-05-16] MEDS: Multivitamin TABLET 1 TAB PO (09:08)
[2024-05-16] MEDS: Apixaban 5 MG TABLET PO ×2 (09:08→21:23)
[2024-05-16] MEDS: cefuroxime axetiL 250 MG TABLET PO ×2 (09:08→21:25)
[2024-05-16] MEDS: Metoprolol Tartrate 25 MG TABLET PO ×2 (09:08→21:24)
[2024-05-16] MEDS: Atorvastatin Calcium 80 MG TABLET PO (09:08)
[2024-05-16] MEDS: 0.9 % Sodium Chloride Flush 3 ML SYRINGE IVFLUSH ×3 (09:09→21:29)
[2024-05-16] MEDS: Carbamide Peroxide 6.5% Otic 15 ML DRPBTL 5 DROP EAR-BOTH (09:09)
[2024-05-16] MEDS: Artificial Tears 15 ML DROPS 1 DROP EYE-BOTH ×3 (09:09→16:22)
[2024-05-16] MEDS: lisinopriL 5 MG TABLET PO (09:09)
[2024-05-16 11:39] LABS: Glucose, Whole Blood 234 mg/dL (60-115)
[2024-05-16] MEDS: Insulin Lispro 100 UNIT/ML 3 ML VIAL SUBCUT ×6 (12:18→21:28)
--- NOTE | 2024-05-16 12:59 | MHC.CM.PN ---
Addendum entered by Thalia Macdonald RN 05/16/24 14:29: CM RECEIVED OFFICIAL BED OFFER FROM [facility], FACILITY WILL ORDER CPAP AND TAKE PT TOMORROW AM EARLY 11AM, DTR JAYCEE AND HOSPITALIST UPDATED. Original Note: PER HOSPITALIST PT CAN BE MEDICALLY CLEARED FOR DC TO [facility], PER PT'S DTR JAYCEE FAMILY WOULD LIKE [facility] JAYCEE LIVES NEAR FACILITY AND PT WILL BE MOVING IN WITH HER UPON DC FROM [facility], [facility] INTERESTED AND VERIFYING MEDICARE#, SNF WILL NEED TO ORDER CPAP PRIOR TO TXFR, CM AWAITING FOR OFFICIAL BED OFFER AND WILL CONT TO FOLLOW.
--- NOTE | 2024-05-16 15:25 | P.DS_ITS ---
DS: Providers Provider Date of Service: 05/17/24 <PARKER Mullins - Last Filed: 05/17/24 11:36> Date of admission: 05/14/24 00:57 <Jodi Perez NP - Last Filed: 05/16/24 15:26> Date of discharge: 05/17/24 <PARKER Mullins - Last Filed: 05/17/24 11:36> Primary care physician: Didier Serrano MD <Jodi Perez NP - Last Filed: 05/16/24 15:26> Attending physician on discharge: Terence Cain <PARKER Mullins - Last Filed: 05/17/24 11:36> Discharging clinician: Ana Cristina Chu <PARKER Mullins - Last Filed: 05/17/24 11:36> DS: Diagnosis Discharge Diagnosis (1) Paroxysmal atrial flutter: Status: Acute <Jodi Perez NP - Last Filed: 05/16/24 15:26> (2) Urinary retention with incomplete bladder emptying: Status: Acute <Jodi Perez NP - Last Filed: 05/16/24 15:26> (3) MARCELLO (acute kidney injury): Status: Acute <Jodi Perez NP - Last Filed: 05/16/24 15:26> DS: Summary Hospital Course Hospital Course: History and physical as per admitting provider. This is a 84-year-old male with pertinent history of hypertension, prostate cancer status post radiation, insulin-dependent diabetes mellitus, paroxysmal atrial flutter on anticoagulation, BPH who was brought to the emergency department for evaluation of lethargy and weakness. Of note, patient was recently admitted on 05/07 with acute renal retention, acute kidney injury and new onset atrial flutter and discharged on 05/11 to rehab facility. Patient's daughter stated that patient was at rehab facility and his symptoms started 2 days prior to presentation. He has been lethargic and sleeping throughout the day. Also has been weak with easy fatigability. Noted poor p.o. intake. Daughter stated that patient's urine was sent and patient may have received a dose of antibiotics at outside facility for concerns of UTI. No fever, chills, chest pain, palpitations, abdominal pain, changes in bowel habits. In the emergency department, patient requiring 2 L supplemental oxygen and was given IV crystalloids with IV antibiotics. Sepsis related to possible UTI. Sepsis resolved UA not conclusive of UTI (possibly due to previous dose of antibiotics prior to admission) no consolidation noted on CXR urine and blood culture neg initially on Rocephin and improved with treatment. complete 5 days course of abx with ceftin ELIOT inpatient sleep study from 05/10/24 showing severe degree of sleep apnea likely causing episodes of sleepiness and lethargy during the day cpap while inpatient, continue CPAP at short-term rehab Likely early vascular dementia MOCA indicating difficulty with executive functioning, memory recall and some language. PT/OT rec STR Covid positive (continued from 05/06/24) no hypoxia on room air Paroxysmal atrial flutter On Eliquis and BB Insulin-dependent diabetes mellitus with hyperglycemia Continue home medications Hypertension Continue lisinopril BPH On finasteride and Flomax <Jodi Perez NP - Last Filed: 05/16/24 15:26> Time Attestation Discharge Coordination Time (in mins): 35 <PARKER Mullins - Last Filed: 05/17/24 11:36> Quality: Safe Use of Opioids Does Pt have an Active Cancer Diagnosis on the Problem List?: No <PARKER Mullins - Last Filed: 05/17/24 11:36> Quality: Stroke Does the patient have a stroke diagnosis?: No <PARKER Mullins Last Filed: 05/17/24 11:36> Physical Exam Vital Signs: Vital Signs: Last Vital Signs Temp 96.9 F 05/16/24 15:17 Pulse 80 05/16/24 15:17 Resp 18 05/16/24 15:17 BP 136/72 05/16/24 15:17 Pulse Ox 96 05/16/24 15:17 O2 Del Method Room Air 05/16/24 15:17 O2 Flow Rate 2 05/14/24 07:04 Oxygen Flow Rate 2 05/13/24 15:50 BMI result Body Mass Index 32.0 <Jodi Perez NP - Last Filed: 05/16/24 15:26> Const: General: cooperative, comfortable, no acute distress, alert and awake <PARKER Mullins - Last Filed: 05/17/24 11:36> Nutritional Appearance: overweight <PARKER Mullins - Last Filed: 05/17/24 11:36> Orientation/consciousness: patient oriented x3 <PARKER Mullins - Last Filed: 05/17/24 11:36> Resp: Effort & Inspection: normal respiratory effort, able to speak in complete sentences, no respiratory distress and no use of accessory muscles <PARKER Mullins - Last Filed: 05/17/24 11:36> Cardio: Rate: regular rate <PARKER Mullins - Last Filed: 05/17/24 11:36> GI: Inspection: No distended <PARKER Mullins - Last Filed: 05/17/24 11:36> Palpation (GI): Soft to palpation <PARKER Mullins - Last Filed: 05/17/24 11:36> Neuro: General: patient oriented x3, moves all extremities and CN's II-XI intact bilaterally <PARKER Mullins - Last Filed: 05/17/24 11:36> DS: Data Data Completed and Pending Labs on day of discharge: Laboratory Results - last 24 hr 05/15/24 05/15/24 05/16/24 16:35 20:08 07:57 POC Glucose 229 H 215 H 129 H 05/16/24 11:31 POC Glucose 234 H Preliminary micro results at discharge 05/13/24 21:58 Blood Culture - Preliminary Blood - Venous No growth after 48 hours. 05/13/24 21:58 Blood Culture - Preliminary Blood - Venous No growth after 48 hours. <Jodi Perez NP - Last Filed: 05/16/24 15:26> Discharge Plan Discharge Anticipated Discharge Date/Time: 05/17/24 13:00 <Jodi Perez NP - Last Filed: 05/16/24 15:26> Patient Disposition: Xfer SNF <Jodi Perez NP - Last Filed: 05/16/24 15:26> Discharge Diagnosis: Sepsis secondary to UTI Obstructive sleep apnea COVID positive <Jodi Perez NP - Last Filed: 05/16/24 15:26> Sepsis secondary to UTI Obstructive sleep apnea COVID positive <PARKER Mullins - Last Filed: 05/17/24 11:36> Referrals: [facility] [Outside] - 1 Day (SHORT TERM REHAB) Didier Serrano MD [Primary Care Provider] - 1 Week <Jodi Perez NP - Last Filed: 05/16/24 15:26> Discharge Medications: New cefuroxime axetil 250 mg Tablet 250 mg PO Q12H Qty: 6 0RF Continued atorvastatin 80 mg Tablet 80 mg PO DAILY carboxymethylcellulose sodium 0.5 % Drops 1 drp OPHTHALMIC (EYE) QID carbamide peroxide 6.5 % Drops 5 drp OTIC (EARS) DAILY multivitamin Tablet 1 tab PO DAILY metformin 500 mg Tablet 500 mg PO DAILY lisinopril 5 mg Tablet 5 mg PO DAILY finasteride 5 mg Tablet 5 mg PO BEDTIME tamsulosin 0.4 mg Capsule 0.4 mg PO BEDTIME 30 Days Qty: 30 0RF Eliquis 5 mg Tablet 5 mg PO BID 30 Days Qty: 60 0RF metoprolol tartrate 25 mg Tablet 25 mg PO BID 30 Days Qty: 60 0RF Protocol: Hold for SBP/HR < HOLD for SBP < : 90 HOLD for HR < : 60 acetaminophen 325 mg Tablet 650 mg PO Q8H PRN (Reason: temperature/pain) insulin glargine 100 unit/mL Solution 45 unit SUBCUT BEDTIME magnesium hydroxide [Milk of Magnesia] 400 mg/5 mL Suspension 30 ml PO DAILY PRN (Reason: Constipation) bisacodyl [Dulcolax (bisacodyl)] 10 mg Suppository 10 mg ME DAILY PRN (Reason: Constipation) Fleet Enema 19-7 gram/118 mL Enema 118 ml ME DAILY PRN (Reason: Constipation) insulin lispro [Humalog U-100 Insulin] 100 unit/mL Solution 1 sliding scale dose SUBCUT TIDAC Protocol: Insulin Correction Scale Less than or equal to 110 ---- Give (units): 0 111 to 150 Give (units): 0 151 to 200 Give (units): 2 201 to 250 Give (units): 4 251 to 300 Give (units): 6 301 to 350 Give (units): 8 Greater than 350 Give (units): 10 Call MD if Blood Glucose > : 350 <Jodi Perez NP - Last Filed: 05/16/24 15:26> Discharge Orders: Discharge Order (Routine); Ordered 05/17/24 Ordered By: Ana Cristina Chu <Jodi Perez NP - Last Filed: 05/16/24 15:26> Diet: Advance to usual diet <Jodi Perez NP - Last Filed: 05/16/24 15:26> Advance to usual diet <PARKER Mullins - Last Filed: 05/17/24 11:36> Activity on Discharge: As tolerated <Jodi Perez NP - Last Filed: 05/16/24 15:26> As tolerated <PARKER Mullins - Last Filed: 05/17/24 11:36> Stand Alone Forms: Patient Portal Discharge page <Jodi Perez NP - Last Filed: 05/16/24 15:26> Print Language: Chinese <Jodi Perez NP - Last Filed: 05/16/24 15:26> Care Plan Goals: Transfer to short-term rehab for physical therapy <Jodi Perez NP - Last Filed: 05/16/24 15:26> Health Concerns: Sepsis secondary to UTI - complete course of oral Ceftin as prescribed Obstructive sleep apnea - recommend use of CPAP at night COVID positive. No hypoxia. Initially tested + 05/06 will need outpatient follow up with urology as per previous discharge will need outpatient follow-up with Cardiology as per previous discharge <Jodi Perez NP - Last Filed: 05/16/24 15:26> Plan of Treatment: Follow-up with primary care provider as needed Take all medications as prescribed <Jodi Perez NP - Last Filed: 05/16/24 15:26> Assessment: See discharge summary <Jodi Perez NP - Last Filed: 05/16/24 15:26>
[2024-05-16 16:03] LABS: Glucose, Whole Blood 310 mg/dL (60-115)
[2024-05-16 20:59] LABS: Glucose, Whole Blood 203 mg/dL (60-115)
[2024-05-16] MEDS: Finasteride 5 MG TABLET PO (21:21)
[2024-05-16] MEDS: Acetaminophen 325 MG TABLET 650 MG PO (21:22)
[2024-05-16] MEDS: Tamsulosin HCL 0.4 MG CAPSULE PO (21:23)
[2024-05-16] MEDS: Melatonin 3 MG TABLET 6 MG PO (21:23)
[2024-05-16] MEDS: Insulin Glargine,Hum.rec.anlog 100 UNIT/ML 10 ML VIAL 45 UNIT SUBCUT (21:29)
--- NOTE | 2024-05-16 23:32 | PC.RT ---
Pt refused CPAP
[2024-05-17 08:00] VITALS: BP 140/76; PULSE 68; RESP 18; TEMP 36.3; O2SAT 94
[2024-05-17 08:35] LABS: Glucose, Whole Blood 138 mg/dL (60-115)
[2024-05-17] MEDS: Carbamide Peroxide 6.5% Otic 15 ML DRPBTL 5 DROP EAR-BOTH (09:17)
[2024-05-17] MEDS: Metoprolol Tartrate 25 MG TABLET PO (09:17)
[2024-05-17] MEDS: cefuroxime axetiL 250 MG TABLET PO (09:17)
[2024-05-17] MEDS: Apixaban 5 MG TABLET PO (09:17)
[2024-05-17] MEDS: lisinopriL 5 MG TABLET PO (09:17)
[2024-05-17] MEDS: 0.9 % Sodium Chloride Flush 3 ML SYRINGE IVFLUSH (09:17)
[2024-05-17] MEDS: Atorvastatin Calcium 80 MG TABLET PO (09:17)
[2024-05-17] MEDS: Multivitamin TABLET 1 TAB PO (09:17)
[2024-05-17] MEDS: Artificial Tears 15 ML DROPS 1 DROP EYE-BOTH (09:17)
--- NOTE | 2024-05-17 09:49 | MHC.CM.PN ---
IMM 05/17/24, ANTIC PT WILL BE MEDICALLY CLEARED FOR STR AT [facility], PT'S DTR JAYCEE NOTIFIED OF TRANSFER TIME OF 1PM [facility] FOR BLS TRANSPORT
[2024-05-17 12:01] VITALS: BP 128/71; PULSE 68; RESP 18; TEMP 36.4; O2SAT 94
[2024-05-17 12:06] LABS: Glucose, Whole Blood 270 mg/dL (60-115)
[2024-05-17] MEDS: Insulin Lispro 100 UNIT/ML 3 ML VIAL SUBCUT ×2 (12:16→12:17)
== END 2024-05-17 13:42 | disposition skilled nursing facility (03) | DRG 871 ==
LOC: HO.ED 22:30 → HO.EDOVER 05-14 01:41 → HO.IMC 05-14 04:47
PROVIDERS: Nurse Practitioner Acute Care; Admitting Provider Student in an Organized Health Care Education/Training Program; Emergency Provider Student in an Organized Health Care Education/Training Program; PCP Internal Medicine; Visit Provider Physician Assistant Medical
DX: A41.9 Sepsis, unspecified organism (principal); U07.1 COVID-19; N39.0 Urinary tract infection, site not specified; I48.92 Unspecified atrial flutter; G47.33 Obstructive sleep apnea (adult) (pediatric); N40.1 Benign prostatic hyperplasia with lower urinary tract symptoms; R33.8 Other retention of urine; F01.50 Vascular dementia, unspecified severity, without behavioral disturbance, psychotic disturbance, mood disturbance, and anxiety; E11.65 Type 2 diabetes mellitus with hyperglycemia; Z85.46 Personal history of malignant neoplasm of prostate; Z92.3 Personal history of irradiation; Z79.4 Long term (current) use of insulin; Z79.01 Long term (current) use of anticoagulants; Z79.899 Other long term (current) drug therapy
CPT/HCPCS: 0241U; 36415; 71045; 80048; 80053; 80076; 81001; 82140; 82803; 82947; 83605; 83880; 85025; 85610; 85730; 87040; 87086; 93005; 94660; 97162; 97166; 99285; J0696; J1100; J2543; J3371

== ENCOUNTER → 2024-05-13 16:08 | Outpatient (BNV) | payer OTHER, SELFPAY | PROVIDERS: Admitting Provider Student in an Organized Health Care Education/Training Program; Emergency Provider Student in an Organized Health Care Education/Training Program; PCP Internal Medicine; Visit Provider Internal Medicine | DX: R94.31 Abnormal electrocardiogram [ECG] [EKG] (principal); R53.1 Weakness | CPT/HCPCS: 93010 ==

== ENCOUNTER → 2024-05-13 16:37 | Outpatient (BNV) | payer OTHER, SELFPAY | PROVIDERS: Emergency Provider Student in an Organized Health Care Education/Training Program; Visit Provider Student in an Organized Health Care Education/Training Program | DX: I48.92 Unspecified atrial flutter (principal); R33.9 Retention of urine, unspecified; N17.9 Acute kidney failure, unspecified | CPT/HCPCS: 99223; 99232; 99239; 99499 ==

== ENCOUNTER 2024-12-25 20:06 | Emergency (ER) | payer OTHER, SELFPAY ==
--- NOTE | ~2024-12-25 | XR_ITS ---
CLINICAL HISTORY: ams 1 view chest x-ray Comparison: CR/SR - XR CHEST 1V - 05/13/24 21:09 EDT Findings: Low lung volume and bibasilar subsegmental atelectatic changes, otherwise unremarkable. Normal size heart. No acute fracture. IMPRESSION: Low lung volume and bibasilar subsegmental atelectatic changes, otherwise unremarkable. This document has been electronically signed by: Jerrell Pagan MD on 12/25/2024 21:53:43
--- NOTE | ~2024-12-25 | CT_ITS ---
CLINICAL HISTORY: confused CT head without contrast Comparison: CT/SR - CT HEAD/BRAIN WO IV CON - 05/06/24 21:43 EDT Findings: No intra-axial mass, midline shift, hydrocephalus, or acute hemorrhage. Moderate atrophy-like change or white matter disease. Moderate mucosal thickening and opacification of the bilateral maxillary sinuses and anterior ethmoid air cells remainder of the paranasal sinuses and bilateral mastoid air cells are clear. Moderate cerumen impaction of both external ear canals. The orbits are unremarkable. There is no acute fracture. IMPRESSION: 1. No acute intracranial findings. 2. Moderate generalized cerebral volume loss and chronic microvascular ischemic changes. 3. Moderate mucosal thickening of the bilateral maxillary and anterior ethmoid air cells. This document has been electronically signed by: Jerrell Pagan MD on 12/25/2024 22:32:42
[2024-12-25 20:25] VITALS: BP 113/65; PULSE 84; RESP 18; TEMP 37.5; O2SAT 93; BMI 30.4
--- NOTE | 2024-12-25 20:28 | ED_ITS ---
HPI - General Adult General Chief complaint: Altered Mental Status Stated complaint: Confusion, sent from [facility] Time Seen by Provider: 12/25/24 23:09 Source: patient and family (Daughter) Mode of arrival: ambulatory Limitations: altered mental status History of Present Illness ED Provider: Dr. Micaela Steele HPI narrative: 84-year-old male with past medical history of hypertension, a flutter, prostate cancer, obesity and ELIOT presenting with reported cough, shortness of breath, increased confusion noted today around 6:00 p.m. by the patient's daughter. Apparently becoming weaker and requiring more assistance with ambulation which is not his baseline. Daughter reports that he was exposed to a child that was coughing at the home. That child subsequently tested negative for COVID/flu. There have been no fevers or sputum production. Patient denies nausea, vomiting, diarrhea. Related Data Home Medications ?Medication ?Instructions ?Recorded ?Confirmed atorvastatin 80 mg tablet 80 mg PO DAILY 05/07/24 05/14/24 carbamide peroxide 6.5 % ear drops 5 drp otic (ears) DAILY 05/07/24 05/14/24 carboxymethylcellulose sodium 0.5 1 drp ophthalmic (eye) QID 05/07/24 05/14/24 % eye drops finasteride 5 mg tablet 5 mg PO BEDTIME 05/07/24 05/14/24 lisinopril 5 mg tablet 5 mg PO DAILY 05/07/24 05/14/24 metformin 500 mg tablet 500 mg PO DAILY 05/07/24 05/14/24 multivitamin 1 tab PO DAILY 05/07/24 05/14/24 acetaminophen 325 mg tablet 650 mg PO Q8H PRN temperature/pain 05/14/24 05/14/24 bisacodyl 10 mg rectal suppository 10 mg SC DAILY PRN Constipation 05/14/24 05/14/24 (Dulcolax (bisacodyl)) insulin glargine 100 unit/mL 45 unit subcut BEDTIME 05/14/24 05/14/24 subcutaneous solution insulin lispro 100 unit/mL 1 sliding scale dose subcut TIDAC 05/14/24 05/14/24 subcutaneous solution (Humalog U-100 Insulin) magnesium hydroxide 400 mg/5 mL 30 ml PO DAILY PRN Constipation 05/14/24 05/14/24 oral suspension (Milk of Magnesia) sodium phosphates 19 gram-7 118 ml SC DAILY PRN Constipation 05/14/24 05/14/24 gram/118 mL enema (Fleet Enema) Previous Rx's ?Medication ?Instructions ?Recorded apixaban 5 mg tablet (Eliquis) 5 mg PO BID 30 days #60 tabs 05/11/24 metoprolol tartrate 25 mg tablet 25 mg PO BID 30 days #60 tabs 05/11/24 tamsulosin 0.4 mg capsule 0.4 mg PO BEDTIME 30 days #30 caps 05/11/24 cefuroxime axetil 250 mg tablet 250 mg PO Q12H #6 tabs 05/16/24 benzonatate 100 mg capsule 100 mg PO TID PRN cough #14 caps 12/26/24 Allergies Allergy/AdvReac Type Severity Reaction Status Date / Time No Known Allergies Allergy Verified 12/25/24 20:31 Review of Systems 2 Review of Systems: As per HPI Yes all other systems are reviewed and are negative PMFSH Past Medical History Attestation statement: The following information was validated with the patient. (ELIOT, HTN, diabetes, atrial flutter) Source: old records reviewed and obtained from family Medical History (Updated 12/26/24 @ 00:34 by Micaela Setele DO) Obesity Amnesia Osteoarthritis, knee ELIOT (obstructive sleep apnea) Leukoplakia oral mucosa Other and unspecified hyperlipidemia HTN (hypertension) Benign neoplasm of colon Basal cell carcinoma of skin of scalp and neck Paroxysmal atrial flutter Urinary retention with incomplete bladder emptying COVID Status post radiation therapy Prostate cancer Type 2 diabetes mellitus Social History Social History Household Members: None Housing: House Do you presently have visiting nurse or other home services: No Patient Tobacco Use Status: Never used Tobacco Smoked in Last 30 Days: No Use of substances other than those prescribed or required for medical reasons: No Advance Directives: No Advance Directives Information Provided: No Do you have a plan to hurt others: No Plan service: Yes Physical Exam ED Vital Signs: Vital Signs - 24 hr 12/25/24 20:25 12/25/24 22:32 Temperature 99.5 F 98.2 F Pulse Rate 84 80 Respiratory Rate 18 16 Blood Pressure 113/65 105/49 L Pulse Oximetry 93 93 Oxygen Delivery Method Room Air Room Air BMI result Body Mass Index 30.4 GENERAL: Chronically ill-appearing, conversant, no acute distress. SKIN: Normal skin color for ethnicity, warm, dry, no rashes noted. HEENT: Normocephalic, atraumatic, no stridor, posterior oropharynx nonerythematous, EOMI. NECK: Soft, supple, full ROM, midline structures nontender, no step-offs, no deformities, no lymphadenopathy. CHEST: Heart regular rate and rhythm, no murmurs, symmetric chest rise and fall. PULMONARY: Clear to auscultation bilaterally, no labored breathing, no wheezes/rhales/ rhonchi, occasional nonproductive cough. ABDOMINAL: Soft, nondistended, nontender, positive bowel sounds in all quadrants. : Deferred. MUSCULOSKELETAL: Normal tone, full range of motion, no deformities, no peripheral edema. NEURO: Alert and oriented to person, CN II through XII intact, no focal neurologic deficits. PSYCHIATRIC: Flat affect, fluid speech, appropriate demeanor. Course Course Course Narrative: This is a Rapid Medical Exam performed in triage by Michelle Shrestha PA-C. Full HPI, ROS and PE to be performed by primary ED provider. 84 yo M w/pmhx obesity, ELIOT, HTN, A flutter, prostate CA, presenting to the ED c/o cough, SOB, shallow breaths, & increasing confusion x today (noted at 1800 today). Daughter also reports generalized weakness, stumbly & needs assistance w/walking - more than normal. Per daughter patient forgot the CATERING COOK was at his house today & told her to cancel him PE: NAD, pleasantly confused, no focal neuro deficits, ambulating with slow shuffling gait Plan: EKG, labs, UA, CXR, SARs, head CT Reevaluation(s) Reevaluation #1: Patient feeling improved after Tessalon Perles. No further coughing. Urinalysis does not show evidence of infection. Discussed with daughter possibility of sleep apnea contributing to patient's symptoms today. He has no fever, no elevation of his white blood cell count and no change in his sputum production. Suspect viral bronchitis. He has an appointment with a sound editor tomorrow. Using shared decision making, plan for discharge home to follow-up with primary care and/or specialist. Patient understands and agrees with plan for discharge. Discharged home in stable condition. Time: 00:31 Myriam Chaudhry Medical Decision Making Medical Decision Making [facility] Narrative: Patient presents today with chief complaint of shortness of breath. Differential diagnosis includes, but is not limited to, viral upper respiratory infection, pneumonia,COPD exacerbation, asthma exacerbation, CHF, pneumothorax, pleural effusion, pulmonary embolism, ACS. Broad-based work-up will be initiated to evaluate for etiology of patient's symptoms. Differential Diagnosis Differential Diagnoses: The differential diagnosis associated with the presentation includes (See above) Admission/Observation Consideration of admission/observation: Escalation of care including admission/observation considered Lab Data [facility] Lab Attestation statement: I reviewed the patient's lab results. No elevation of white blood cell count, baseline renal insufficiency. Viral panel negative. 12/25/24 21:01 12/25/24 21:01 Labs: Lab Results 12/25/24 12/25/24 Range/Units 21:01 23:24 WBC 8.2 (4.8-10.8) X10*3/uL RBC 4.75 (4.60-5.80) X10*6/uL Hgb 15.0 (14.0-18.0) g/dl Hct 42.7 (42.0-52.0) % MCV 89.9 (80.0-98.0) fL MCH 31.6 (27.0-33.0) pg MCHC 35.1 (31.0-36.0) g/dl RDW 13.2 (11.0-16.0) % Plt Count 171 D (160-400) X10*3/uL MPV 11.1 (9.4-12.4) fL Immature Gran % (Auto) 0.5 H (0.0-0.4) % Neut % (Auto) 82.9 H (45-73) % Lymph % (Auto) 7.1 L (20-40) % [place] % (Auto) 8.9 (2-11) % Eos % (Auto) 0.2 (0-4) % Baso % (Auto) 0.4 (0-2) % Lymph # (Auto) 0.6 L (1.2-4.9) X10*3/uL [place] # (Auto) 0.7 (0.1-1.2) X10*3/uL Eos # (Auto) 0.0 (0.0-0.4) X10*3/uL Baso # (Auto) 0.0 (0.0-0.2) X10*3/uL Abs Immat Gran (auto) 0.04 H (0.00-0.03) X10*3/uL Absolute Neuts (auto) 6.8 (2.0-8.3) x10*3/uL Absolute Nucleated RBC 0.000 (0.0-0.012) X10*3/uL Nucleated RBC % (auto) 0.0 (0.0-0.2) /100WBC PT 14.6 H (10.9-12.4) SEC INR 1.3 H (0.9-1.1) Sodium 134 L (135-145) mmol/L Potassium 4.6 (3.3-5.1) mmol/L Chloride 103 (96-108) mmol/L Carbon Dioxide 22 (22-29) mmol/L Anion Gap 14 (12-20) BUN 22 H (9-16) mg/dL Creatinine 1.38 (0.5-1.4) mg/dL Estim Creat Clear Calc 44.3 Estimated GFR 49 Random Glucose 216 H (60-115) mg/dL Lactic Acid 2.0 (0.5-2.0) mmol/L Calcium 9.7 D (8.4-10.2) mg/dL Magnesium 1.7 (1.6-2.6) mg/dL Total Bilirubin 0.9 (0.0-1.0) mg/dL Direct Bilirubin 0.2 (0.0-0.5) mg/dL AST 32 (5-37) U/L ALT 16 (0-40) U/L Alkaline Phosphatase 95 (39-117) U/L Troponin I High Sens 4.1 D (<3.5-35.0) ng/L Total Protein 7.1 (6.5-8.0) g/dL Albumin 3.7 (3.5-5.0) g/dL Urine Color Yellow Urine Appearance Clear Urine pH 5.0 (5.0-9.0) Ur Specific [place] 1.020 (1.005-1.025) Urine Protein Negative (Neg-Trace) mg/dL Urine Glucose (UA) Negative (Negative) mg/dL Urine Ketones Trace (Negative) mg/dL Urine Blood Negative (Negative) Urine Nitrite Negative (Negative) Ur Leukocyte Esterase Negative (Negative) Influenza Type A (PCR) NEGATIVE (Negative) Influenza Type B (PCR) NEGATIVE (Negative) RSV RNA Qual (PCR) NEGATIVE (Negative) SARS-CoV-2 RNA (RT-PCR) NEGATIVE (Negative) Independent Interpretation I performed an independent interpretation of an: Plain X-Ray (My independent interpretation of the chest x-ray reveals no consolidations, pulmonary edema, pleural effusion, pneumothorax, obvious bony abnormalities. ) Radiology Impression Discussion of test interpretation with radiology: I have reviewed the radiologist's reading. Radiologist Impression: CT head without contrast Comparison: CT/SR - CT HEAD/BRAIN WO IV CON - 05/06/24 21:43 EDT Findings: No intra-axial mass, midline shift, hydrocephalus, or acute hemorrhage. Moderate atrophy-like change or white matter disease. Moderate mucosal thickening and opacification of the bilateral maxillary sinuses and anterior ethmoid air cells remainder of the paranasal sinuses and bilateral mastoid air cells are clear. Moderate cerumen impaction of both external ear canals. The orbits are unremarkable. There is no acute fracture. IMPRESSION: 1. No acute intracranial findings. 2. Moderate generalized cerebral volume loss and chronic microvascular ischemic changes. 3. Moderate mucosal thickening of the bilateral maxillary and anterior ethmoid air cells. This document has been electronically signed by: Jerrell Pagan MD on 12/25/2024 22:32:42 1 view chest x-ray Comparison: CR/SR - XR CHEST 1V - 05/13/24 21:09 EDT Findings: Low lung volume and bibasilar subsegmental atelectatic changes, otherwise unremarkable. Normal size heart. No acute fracture. IMPRESSION: Low lung volume and bibasilar subsegmental atelectatic changes, otherwise unremarkable. This document has been electronically signed by: Jerrell Pagan MD on 12/25/2024 21:53:43 Chronic Conditions Patient?s care impacted by: Diabetes and Hypertension Discharge Plan Discharge Clinical Impression: Acute viral bronchitis, Encephalopathy acute, Sleep apnea in adult Patient Disposition: Home, Self-Care Prescriptions: New benzonatate 100 mg capsule 100 mg PO TID PRN (Reason: cough) Qty: 14 0RF No Action atorvastatin 80 mg Tablet 80 mg PO DAILY carboxymethylcellulose sodium 0.5 % Drops 1 drp OPHTHALMIC (EYE) QID carbamide peroxide 6.5 % Drops 5 drp OTIC (EARS) DAILY multivitamin Tablet 1 tab PO DAILY metformin 500 mg Tablet 500 mg PO DAILY lisinopril 5 mg Tablet 5 mg PO DAILY finasteride 5 mg Tablet 5 mg PO BEDTIME tamsulosin 0.4 mg Capsule 0.4 mg PO BEDTIME 30 Days Qty: 30 0RF Eliquis 5 mg Tablet 5 mg PO BID 30 Days Qty: 60 0RF metoprolol tartrate 25 mg Tablet 25 mg PO BID 30 Days Qty: 60 0RF Protocol: Hold for SBP/HR < HOLD for SBP < : 90 HOLD for HR < : 60 acetaminophen 325 mg Tablet 650 mg PO Q8H PRN (Reason: temperature/pain) insulin glargine 100 unit/mL Solution 45 unit SUBCUT BEDTIME magnesium hydroxide [Milk of Magnesia] 400 mg/5 mL Suspension 30 ml PO DAILY PRN (Reason: Constipation) bisacodyl [Dulcolax (bisacodyl)] 10 mg Suppository 10 mg SC DAILY PRN (Reason: Constipation) Fleet Enema 19-7 gram/118 mL Enema 118 ml SC DAILY PRN (Reason: Constipation) insulin lispro [Humalog U-100 Insulin] 100 unit/mL Solution 1 sliding scale dose SUBCUT TIDAC Protocol: Insulin Correction Scale Less than or equal to 110 ---- Give (units): 0 111 to 150 Give (units): 0 151 to 200 Give (units): 2 201 to 250 Give (units): 4 251 to 300 Give (units): 6 301 to 350 Give (units): 8 Greater than 350 Give (units): 10 Call MD if Blood Glucose > : 350 cefuroxime axetil 250 mg Tablet 250 mg PO Q12H Qty: 6 0RF Print Language: Armenian
--- NOTE | 2024-12-25 20:29 | ECG_ITS ---
Test Reason : AMS Blood Pressure : */* mmHG Vent. Rate : 90 BPM Atrial Rate : 90 BPM P-R Int : 192 ms QRS Dur : 78 ms QT Int : 348 ms P-R-T Axes : 33 -2 27 degrees QTcB Int : 425 ms Sinus rhythm with Premature atrial complexes Possible Inferior infarct (cited on or before 06-May-2024) Abnormal ECG When compared with ECG of 13-May-2024 16:08, Premature atrial complexes are now Present Referred By: Michelle Shrestha Electronically Signed By: ISAIAS CORDON MD
[2024-12-25 21:10] LABS: MANUAL DIFF FLAG NO
[2024-12-25 21:15] LABS: Basophils Percent Auto 0.4 % (0-2); Eosinophils Percent Auto 0.2 % (0-4); Hematocrit 42.7 % (42.0-52.0); Imm Gran Abs Auto 0.04 X10*3/uL (0.00-0.03); Imm Gran Pct Auto 0.5 % (0.0-0.4); Lymphocytes Absolute Auto 0.6 X10*3/uL (1.2-4.9); Lymphocytes Percent Auto 7.1 % (20-40); Mean Corpuscular HGB Conc 35.1 g/dl (31.0-36.0); Mean Corpuscular Hemoglobin 31.6 pg (27.0-33.0); Mean Corpuscular Volume 89.9 fL (80.0-98.0); Mean Platelet Volume 11.1 fL (9.4-12.4); Monocytes Absolute Auto 0.7 X10*3/uL (0.1-1.2); Monocytes Percent Auto 8.9 % (2-11); Neutrophils Absolute Auto 6.8 x10*3/uL (2.0-8.3); Neutrophils Percent Auto 82.9 % (45-73); Platelet Count 171 X10*3/uL (160-400); Red Blood Count 4.75 X10*6/uL (4.60-5.80); Red Cell Distribution Width 13.2 % (11.0-16.0); White Blood Count 8.2 X10*3/uL (4.8-10.8)
[2024-12-25 21:32] LABS: INTERNATIONAL NORM RATIO 1.3 (0.9-1.1); Prothrombin Time 14.6 SEC (10.9-12.4)
[2024-12-25 21:35] LABS: Alanine Aminotransferase 16 U/L (0-40); Albumin Level 3.7 g/dL (3.5-5.0); Alkaline Phosphatase 95 U/L (39-117); Anion Gap 14 (12-20); Aspartate Amino Transferase 32 U/L (5-37); Bilirubin Direct 0.2 mg/dL (0.0-0.5); Bilirubin Total 0.9 mg/dL (0.0-1.0); Blood Urea Nitrogen 22 mg/dL (9-16); Calcium 9.7 mg/dL (8.4-10.2); Carbon Dioxide 22 mmol/L (22-29); Chloride 103 mmol/L (96-108); Creatinine Clr Calc Pharmacy 44.3; Estimated Glomerular Filt Rate 49; Glucose Random 216 mg/dL (60-115); Magnesium 1.7 mg/dL (1.6-2.6); Potassium 4.6 mmol/L (3.3-5.1); Sodium 134 mmol/L (135-145); Total Protein 7.1 g/dL (6.5-8.0)
[2024-12-25 21:38] LABS: Troponin-I High Sensitivity 4.1 ng/L (<3.5-35.0)
[2024-12-25 21:53] LABS: Influenza A PCR NEGATIVE (Negative); Influenza B PCR NEGATIVE (Negative); Resp Syncy Virus RNA Qual PCR NEGATIVE (Negative); SARS COV2 PCR INHOUSE NEGATIVE (Negative)
[2024-12-25 22:32] VITALS: BP 105/49; PULSE 80; RESP 16; TEMP 36.8; O2SAT 93
[2024-12-25 23:42] LABS: Appearance Urine Clear; Color Urine Yellow; Glucose Urine UA Negative (Negative); Leukocyte Esterase Urine Negative (Negative); Nitrite Urine Negative (Negative); Urine Blood Negative (Negative); Urine Ketones Trace mg/dL (Negative); Urine Protein Negative (Neg-Trace)
[2024-12-26 00:40] VITALS: BP 94/48; PULSE 83; RESP 16; TEMP 36.6; O2SAT 92
[2024-12-26] MEDS: Benzonatate 100 MG CAPSULE PO (00:40)
[2024-12-26 00:49] VITALS: BP 94/48; PULSE 83; RESP 16; TEMP 36.6; O2SAT 92
== END 2024-12-26 00:50 | disposition home or self-care (01) ==
PROVIDERS: Physician Assistant; Emergency Provider Emergency Medicine; PCP Internal Medicine
DX: J20.9 Acute bronchitis, unspecified (principal); G47.30 Sleep apnea, unspecified; R94.31 Abnormal electrocardiogram [ECG] [EKG]; R41.82 Altered mental status, unspecified; Z79.899 Other long term (current) drug therapy; Z03.818 Encounter for observation for suspected exposure to other biological agents ruled out
CPT/HCPCS: 0241U; 36415; 70450; 71045; 80048; 80076; 81003; 83605; 83735; 84484; 85025; 85610; 87040; 93005; 99284

== ENCOUNTER → 2024-12-25 20:29 | Outpatient (BNV) | payer OTHER, SELFPAY | PROVIDERS: Emergency Provider Emergency Medicine; PCP Internal Medicine; Visit Provider Internal Medicine Cardiovascular Disease | DX: I49.1 Atrial premature depolarization (principal) | CPT/HCPCS: 93010 ==

== ENCOUNTER → 2024-12-25 20:30 | Outpatient (BNV) | payer OTHER, SELFPAY | PROVIDERS: PCP Internal Medicine; Visit Provider Student in an Organized Health Care Education/Training Program | DX: R90.82 White matter disease, unspecified (principal); J98.11 Atelectasis | CPT/HCPCS: 70450; 71045 ==

== ENCOUNTER 2025-03-21 10:23 | Outpatient (AMB) | payer OTHER, SELFPAY ==
[2025-03-21 10:38] VITALS: BP 102/68; PULSE 66; O2SAT 95; BMI 32.7
--- NOTE | 2025-03-21 10:38 | A.OFFVIS_ITS ---
Vital Signs 03/21/25 10:38 Height 5 ft 8 in Weight 215 lb 6 oz BMI 32.7 BP 102/68 Blood Pressure Location Lt brachial Position Sitting Pulse 66 Pulse Source Pulse Oximeter Pulse Oximetry (%) 95 Oxygen Delivery Method Room Air Intake Visit Reasons: ENP - ELIOT Intake Note: Patient presents [employer] ELIOT. Patient states has CPAP(tried using it but returned it, needs adjustments and reeval. No witnessed apnea/gasping, dpes snore. Goes to bed around 10pm, wakes up around 6am. Takes naps at times(range from 10-30min) Allergies No Known Allergies Allergy (Verified 03/21/25 10:43) HPI Comments Details: 85 year old male with cognitive disorder here for an evaluation of ELIOT, [facility]. He had [facility] and chemotherapy for cancer in [place], he was in his mid 70s, is a poor historian. [employer], tried a mask on him and he was unable to tolerate the mask so he discontinued use/ therapy. He is a [place] with cognitive deficits, poor memory, word recall and lacks attention, oriented to self and place. He has hearing aids but not wearing them today, he has hearing difficulties bilaterally and is unable to drive. He goes to sleep at 10pm and wakes up at 6am. He has 4-5 arousals at night due to BPH, will f/u with urology this month. He has pain upon urination, weak stream, and l. testicle radiating pain, denies blood in urine, he has r. flank pain. He has morning headaches and will take an ibuprofen as needed. He denies bruxism, and clenching his teeth. Denies TMJ pain. He denies RLS, symptoms. He has T2DM and bilateral peripheral neuropathy, with tingling in feet. Denies burning and radiating pain. [facility] Medical History Obesity Amnesia Osteoarthritis, knee ELIOT (obstructive sleep apnea) Leukoplakia oral mucosa Other and unspecified hyperlipidemia HTN (hypertension) Benign neoplasm of colon Basal cell carcinoma of skin of scalp and neck Paroxysmal atrial flutter Urinary retention with incomplete bladder emptying COVID Status post radiation therapy Prostate cancer Type 2 diabetes mellitus Social History Household Members: None Housing: House Do you presently have visiting nurse or other home services: No Patient Tobacco Use Status: Never used Tobacco service: Yes Review of Systems Neuro Reports confusion Psych Reports confusion Physical Exam Vital Signs: Last Vital Signs Pulse 66 03/21/25 10:38 BP 102/68 03/21/25 10:38 Pulse Ox 95 03/21/25 10:38 Oxygen Delivery Method Room Air 03/21/25 10:38 BMI result Body Mass Index 32.7 Const General: cooperative, no acute distress and confusion Nutritional Appearance: obese Orientation/consciousness: oriented to person, oriented to place and confusion Limitations: ambulation with cane and other limitations (hearing ) HEENT Teeth and gingiva: other (mallampti score is 3) Eyes Pupils: Equal, round and reactive pupils present Neck Neck: Yes full ROM Resp Effort & Inspection: normal respiratory effort, able to speak in complete sentences and Actively coughing Neuro General: oriented to person, oriented to place, moves all extremities and confusion Cranial nerves: Yes Equal, round and reactive pupils present, Yes Normal accommodation reflex present, Yes Normal facial strength present, Yes Midline tongue present, Yes Ability to bilaterally rotate head present and Yes Ability to bilaterally elevate shoulders present Gait exam (Neuro): Antalgic gait present and Assistive device used Motor exam (neuro): Abnormal motor strength present and Abnormal muscle tone present Deep tendon reflexes (DTR's): Right triceps reflex intensity grade: 2+, Left triceps reflex intensity grade: 2+, Rt Biceps (C5, C6): 2+, Left biceps reflex intensity grade: 2+, Right brachioradialis reflex intensity grade: 2+, Left brachioradialis reflex intensity grade: 2+, Right patellar reflex intensity grade: 2+ and Left patellar reflex intensity grade: 2+ Coordination: [id number] test normal (overshoots) Orientation What is the (year) (season) (date) (day) (month)?: season Where are we (state) (county) (town or city) (hospital) (floor)?: state, county, town or city, hospital/clinic and floor Registration Name of 3 unrelated objects clearly and slowly, then ask patient to repeat all 3 of them. (1st repeat determines score. Make sure they can repeat all three): object 1, object 2 and object 3 Attention & Calculation (CHOOSE ONE) Ask pt to begin with 100 & count backward by 7. Stop after 5 repeats. If pt cannot ask them to spell the word WORLD backward.: 93 (93, 92, 91, 90, 80,) Recall Ask patient to repeat the 3 items from question #3.: object 1, object 2 and object 3 Language Show patient a wristwatch & ask what it is. Repeat for pencil.: watch and pencil Ask the patient to repeat the phrase 'No ifs, ands, or buts' after you.: correct Ask the patient to 'take a piece of paper with their right hand' 'fold paper in half' 'place paper on floor': take paper in right hand, fold paper in half and place paper on floor Print the sentence 'CLOSE YOUR EYES' on a piece. If patient actually closes eyes then score.: followed written direction Score Score: 20 Assessment & Plan Assessment & Plan (1) Excessive daytime sleepiness: Code(s): G47.19 - Other hypersomnia Category: Medical (2) Cognitive decline: Code(s): R41.89 - Other symptoms and signs involving cognitive functions and awareness Category: Medical (3) Antalgic gait: Code(s): R26.89 - Other abnormalities of gait and mobility Category: Medical (4) Chronic lower back pain: Code(s): M54.50 - Low back pain, unspecified; G89.29 - Other chronic pain Category: Medical Qualifiers: Back pain laterality: right Sciatica presence: unspecified whether sciatica present Qualified Code(s): M54.50 - Low back pain, unspecified; G89.29 - Other chronic pain Plan HST r/o eliot Labs r/o deficiencies cognitive decline MMSE 20 Chronic lbp f/u with urology. f/u in 3 months Orders: Orders RT home sleep study 03/21/25 G47.19 - Other hypersomnia Vitamin B12 and Folate 03/21/25 G47.19 - Other hypersomnia TSH reflex Free T4 03/21/25 G47.19 - Other hypersomnia Vitamin B12 03/21/25 G47.19 - Other hypersomnia Homocysteine 03/21/25 G47.19 - Other hypersomnia, G47.9 - Sleep disorder, unspecified, R53.83 - Other fatigue Vitamin D 25-OH Total 08/21/25 G47.19 - Other hypersomnia Vitamin B6 03/21/25 G47.19 - Other hypersomnia Vitamin B1 03/21/25 G47.19 - Other hypersomnia Hemoglobin A1c 03/21/25 G47.19 - Other hypersomnia Ferritin 03/21/25 G47.19 - Other hypersomnia Methylmalonic Acid 03/21/25 G47.19 - Other hypersomnia, G47.9 - Sleep disorder, unspecified, R53.83 - Other fatigue IRON PROFILE 03/21/25 G47.19 - Other hypersomnia, G47.9 - Sleep disorder, unspecified, R53.83 - Other fatigue Patient Instructions: Sleep Hygiene provided: set a scheduled bedtime and wake time to help regulate the circadian rhythm and balance the release of pituitary hormones. Sleep in a dark room, temperatures below 68 degrees, and no devices n bed. Limit caffeinated products 6 hours prior to bed, and limit fluids 2-4 hours prior to bed. Gentle night yoga, diffusing essential oils, and playing soft music can be relaxing. Coding Level of Care Code New Pt Level 4 (86370) Diagnoses Excessive daytime sleepiness G47.19 Cognitive decline R41.89 Antalgic gait R26.89 Chronic right-sided low back pain, unspecified whether sciatica present M54.50; G89.29 Back pain laterality: right Sciatica presence: unspecified whether sciatica present Sleep Questionnaire Difficulty falling asleep: No Difficulty staying asleep?: Yes Number of arousals: 4 Snoring: Yes Gasping arousals: No Nocturia: Yes GERD: Yes Vivid dreams: Yes Acting out dreams: No Abnormal behavior in sleep: No Abnormal movements in sleep: No Morning headaches: Yes Excessive daytime sleepiness: Yes Daytime naps: Yes Restless legs: No Hallucinations: No Sleep paralysis: No Drop attacks: No Sleep Study: No CPAP: No
--- OUTSIDE RECORDS SUMMARY | 2025-03-21 11:54 | XMS_ITS | Encounter Summary ---
Author Organization [facility] Address [address] [facility] [address] [place] [address] Phone Care Team Providers Care Lead Maintenance Technician Name Role Phone Didier Jung MD Primary Care Provider Encounter Details Date Type Department Care Team ([facility] st Contact Info) Description 05/29/2024 Procedure Pass [address] [place] [address] Social History Tobacco Use Types Packs/Day Years Used Date Smoking Tobacco: Former Cigarettes 1 20 1 960 - 1980 Smokeless Tobacco: Never Alcohol Use Standard Drinks/Week Comments Not Currently 0 (1 standard drink = 0.6 oz pur e alcohol) Education Answer Date Recorded Are you interested in more education? Not on alexandria e 11/26/2022 Are you concerned about learning? Not on file 11/26/2022 No 11/26/2022 No 11/26/2022 Digital Access Answer Date Recorded No 12/21/2022 No 12/21/2022 No 12/21/2022 Reliable internet access at home? Not on file 12/21/2022 Device with a working camera? Not on file Sex and Gender Information Value Date Recorded Sex Assigned at Not on file Legal Sex Male 10:12 PM EDT Gender Identity Not on file Sexual Orientation Not on file documented as of this encounter Plan of Treatment Not on file documented as of this encounter Visit Diagnoses Not on filedocumented in this encounter Care Teams Lead Maintenance Technician Relationship Specialty Start Date End Date Didier Jung MD [address] [place] [address] PCP - General Internal Medicine 08/30/22 documented as of this encounter Additional Source Comments The information contained in this document represents components of the legal health record. It is not the complete legal health record.[facility]
== END 2025-03-21 11:38 | disposition home or self-care (01) ==
LOC: HO.HSMS 10:24
PROVIDERS: PCP Internal Medicine; Visit Provider Physician Assistant Medical
DX: G47.19 Other hypersomnia (principal); R41.89 Other symptoms and signs involving cognitive functions and awareness; R26.89 Other abnormalities of gait and mobility; M54.50 Low back pain, unspecified; G89.29 Other chronic pain
CPT/HCPCS: 99204

== ENCOUNTER → 2025-03-21 10:23 | Outpatient (BNVA) | payer OTHER, SELFPAY | PROVIDERS: PCP Internal Medicine; Visit Provider Physician Assistant Medical | DX: G47.19 Other hypersomnia (principal); R41.89 Other symptoms and signs involving cognitive functions and awareness; R26.89 Other abnormalities of gait and mobility; R53.83 Other fatigue; M54.50 Low back pain, unspecified; G89.29 Other chronic pain | CPT/HCPCS: 99202 ==

== ENCOUNTER 2025-06-20 13:41 | Outpatient (AMB) | payer OTHER, SELFPAY ==
--- NOTE | 2025-06-20 14:03 | A.OFFVIS_ITS ---
Vital Signs 06/20/25 14:04 Height 5 ft 8 in Weight 211 lb BMI 32.1 BP 110/62 Blood Pressure Location Rt brachial Position Sitting Pulse 78 Pulse Source Pulse Oximeter Pulse Oximetry (%) 94 Oxygen Delivery Method Room Air Intake Visit Reasons: 3 mo follow up Intake Note: Patient presents Follow up ELIOT. No Labs HST in chart(AHI-38, ANUJ-77%. Urgent Titration study or APAP 5-20cm). Accompanied by: Son Allergies No Known Allergies Allergy (Verified 06/20/25 14:08) HPI Comments Details: 85 year old male with cognitive disorder presents for a follow up of his psg in lab study. He is in with his son in law today who helps with history taking. 05/2024 HST with [facility] is 37.9 and OAI is 32.8, with oxygen desaturation to 77%, he has severe eliot and urgent titration study was recommended and to trial patient on APAP 5-27dmC01 while awaiting titration to determine ideal pressures for therapy. [facility] Titration study requested and is pending. He is a [place] with cognitive deficits, poor memory, word recall and lacks attention, oriented to self and place. He had radiation and chemotherapy for cancer in [place], he was in his mid 70s, is a poor historian. Pt was not able to tolerate cpap 5-20cm H20, trialed therapy with various masks, he was confused. He continues to snore loudly and has multiple arousals at night. He has hearing aids in bilaterally today and upset due to recent loss of driving privileges. His memory is poor, difficulty with word recall, slow to process, will misplace items, lacks focus, easily lost in conversation, forgets appts, forgets medications, needs support with all his ADLs. He goes to sleep at 10pm and wakes up at 6am in his new bed now, he no longer moves to the couch. He has 4-5 arousals at night due to BPH, being followed by urology. He has morning headaches and will take an ibuprofen as needed. He denies bruxism, and clenching his teeth. Denies TMJ pain. He denies RLS, symptoms, denies falls, ambulates with a cane, has difficulty climbing stairs. He has T2DM and bilateral peripheral neuropathy with tingling sensation in his feet. Denies burning and radiating pain, discomfort which causes night time arousals. [facility] Medical History Obesity Amnesia Osteoarthritis, knee ELIOT (obstructive sleep apnea) Leukoplakia oral mucosa Other and unspecified hyperlipidemia HTN (hypertension) Benign neoplasm of colon Basal cell carcinoma of skin of scalp and neck Paroxysmal atrial flutter Urinary retention with incomplete bladder emptying COVID Status post radiation therapy Prostate cancer Type 2 diabetes mellitus Social History Household Members: None Housing: House Do you presently have visiting nurse or other home services: No Patient Tobacco Use Status: Never used Tobacco service: Yes Review of Systems Neuro Reports confusion Psych Reports confusion Physical Exam Vital Signs: Last Vital Signs Pulse 78 06/20/25 14:04 BP 110/62 06/20/25 14:04 Pulse Ox 94 06/20/25 14:04 Oxygen Delivery Method Room Air 06/20/25 14:04 BMI result Body Mass Index 32.1 Const General: cooperative, no acute distress and confusion Nutritional Appearance: obese Orientation/consciousness: oriented to person, oriented to place and confusion Limitations: ambulation with cane and other limitations (hearing ) HEENT Teeth and gingiva: other (mallampti score is 3) Eyes Pupils: Equal, round and reactive pupils present Neck Neck: Yes full ROM Resp Effort & Inspection: normal respiratory effort, able to speak in complete sentences and Actively coughing Neuro General: oriented to person, oriented to place, moves all extremities and confusion Cranial nerves: Yes Equal, round and reactive pupils present, Yes Normal accommodation reflex present, Yes Normal facial strength present, Yes Midline tongue present, Yes Ability to bilaterally rotate head present and Yes Ability to bilaterally elevate shoulders present Gait exam (Neuro): Antalgic gait present and Assistive device used Motor exam (neuro): Abnormal motor strength present and Abnormal muscle tone present Assessment & Plan Assessment & Plan (1) Excessive daytime sleepiness: Code(s): G47.19 - Other hypersomnia Category: Medical (2) Cognitive decline: Code(s): R41.89 - Other symptoms and signs involving cognitive functions and awareness Category: Medical (3) Antalgic gait: Code(s): R26.89 - Other abnormalities of gait and mobility Category: Medical (4) Chronic lower back pain: Code(s): M54.50 - Low back pain, unspecified; G89.29 - Other chronic pain Category: Medical Qualifiers: Back pain laterality: right Sciatica presence: unspecified whether sciatica present Qualified Code(s): M54.50 - Low back pain, unspecified; G89.29 - Other chronic pain Plan HST 05/2024 reviewed with son in law and pt. severe eliot, awaiting titration study from [facility]/ and or [facility] unclear. Nocturia / BPH being followed by Dr. Bowman in Urology, chronic low back pain. Memory cognitive decline MMSE . Labs reviewed form 11/2024, requested from [place] recent labs, h/o MARCELLO. f/u in 3 months Patient Instructions: Please complete the following fasting labs to rule out deficiencies. CBC/CMP/ B12/ Vit D/ TSH/ Homocysteine and MMA/ Ferritin. Sleep Hygiene provided: set a scheduled bedtime and wake time to help regulate the circadian rhythm and balance the release of pituitary hormones. Sleep in a dark room, temperatures below 68 degrees, and no devices n bed. Limit caffeinated products 6 hours prior to bed, and limit fluids 2-4 hours prior to bed. Gentle night yoga, diffusing essential oils, and playing soft music can be relaxing. Pt education provided to family (son in law) cognitive decline, please ensure pt is able to don his equipment at night and use cpap correctly to optimize/ reduce risk of increasing symptoms of forgetfulness. Walk with cane as tolerable. F/U in 3 months or sooner, will request titration study from [facility]. Coding Level of Care Code Est Pt Level 4 (13710) Diagnoses Excessive daytime sleepiness G47.19 Cognitive decline R41.89 Antalgic gait R26.89 Chronic right-sided low back pain, unspecified whether sciatica present M54.50; G89.29 Back pain laterality: right Sciatica presence: unspecified whether sciatica present
[2025-06-20 14:04] VITALS: BP 110/62; PULSE 78; O2SAT 94; BMI 32.1
--- OUTSIDE RECORDS SUMMARY | 2025-06-20 19:09 | XMS_ITS | Clinical Summary ---
Author Organization [facility] Address [address] [facility] [address] [place], [place] [address] Phone Care Team Providers Care Health Commissioner Name Role Phone Didier Jung MD Primary Care Provider Allergies No known active allergies Medications alogliptin (NESINA) 25 mg tablet Take 1 tablet by mouth daily. 2 Active atorvastatin (LIPITOR) 80 MG tablet TAKE ONE-HALF TABLET BY MOUTH ONCE DAILY FOR CHOLESTEROL 2 Active glucose 4 GM chewable tablet 16 g. 3 Active doxycycline hyclate (DORYX) 100 MG tablet Take 1 tablet by mouth 2 (two) times a day. 2 Active finasteride (PROSCAR) 5 mg tablet TAKE ONE TABLET BY MOUTH AT BEDTIME FOR PROSTATE 2 Active glipiZIDE (GLUCOTROL) 10 MG tablet Take 1 tablet by mouth daily. 2 Active lisinopril (PRINIVIL,ZESTR IL) 5 MG tablet TAKE ONE TABLET BY MOUTH ONCE DAILY TO CONTROL BLOOD PRESSURE 2 Active metFORMIN (GLUCOPHAGE) 1000 MG tablet TAKE ONE TABLET BY MOUTH TWICE DAILY FOR DIABETES 2 Active terazosin (HYTRIN) 2 MG capsule Take 1 capsule by mouth nightly at bedtime. 2 Active trospium (SANCTURA) 20 mg tablet Take 1 tablet by mouth 2 (two) times a day. 2 Active aspirin 81 mg chewable tablet Take 81 mg by mouth daily. Active multivitamin-mi nerals-lutein (CENTRUM SILVER) Tab Take 1 tablet by mouth daily. Active Active Problems Problem Noted Date Diagnosed Date Epidermoid cyst of skin of back 02/16/2023 Squamous cell carcinoma of neck 08/30/2022 History of skin cancer 08/30/2022 Current use of aspirin 08/30/2022 Family History Relation Status Comments Father Mother Social History Tobacco Use Types Packs/Day Years Used Date Smoking Tobacco: Former Cigarettes 1 20 1 960 - 1980 Smokeless Tobacco: Never Tobacco Cessation:Counseling Given: Not Answered Alcohol Use Standard Drinks/Week Comments Not Currently [...] on file Sexual Orientation Not on file Last Filed Vital Signs Vital Sign Reading Time Taken Comments Blood Pressure 129/61 01/25/2023 1:10 PM EDT Pulse 73 01/25/2023 1:10 PM EDT Temperature - - Respiratory Rate - - Oxygen Saturation 96% 10/08/2022 9:16 AM EST Inhaled Oxygen Concentration - - Weight 88.5 kg (195 lb) 06/02/2024 11:51 AM EDT Height 165.1 cm (5' 5 ) 06/02/2024 11:51 AM EDT Body Mass Index 32.45 06/02/2024 11:51 AM EDT Plan of Treatment Health Maintenance Due Date Last Done Comments DEPRESSION SCREENING 1952 PNEUMOCOCCAL VACCINES (50+ years) (1 of 1 - PCV) 1991 RSV VACCINE (1 - 1-dose 75+ series) 02/24/2016 INFLUENZA VACCINE (#1) 2025 , 08/01/2020, 08/17/2007, Additional history exists COVID-19 VACCINE ( - 2024- season) 2025 Adult Td,Tdap Booster 08/16/2027 08/16/2017 ZOSTER VACCINES Completed 01/12/2023, 09/29, 01/21/2021 HEPATITIS A VACCINES Aged Out No long er eligible based on patient's age to complete this topic HIB VACCINES Aged Out No longer eligi ble based on patient's age to complete this topic MENINGOCOCCAL VACCINES (ACWY) Aged Out No longer eligible based on patient's age to complete this topic MENINGOCOCCAL VACCINES (B) Aged Out N o longer eligible based on patient's age to complete this topic Medical Devices Not on file Insurance MEDICARE PART A & B [facility] MEDICARE PART A & B Member Subscriber Plan / Payer (Ef fective 2018-Present) Name:MikCarl Relation to Subscriber:Self Name:KameronCarl sahu Payer ID:[id number] (NAIC) Group ID:Not on file Type:Indemnity Address: [facility] [id number] [place] [address] MEDICARE PART A & B MEDICARE PART A & B MEDICARE PART A & B MEDICARE PART A & B MEDICARE PART A & B MEDICARE PART A & B MEDICARE PART A & B [facility] Care Teams Health Commissioner Relationship Specialty Start Date End Date Didier Jung MD [address] [place] [address] PCP - General Internal Medicine 08/30/22 Additional Source Comments The information contained in this document represents components of the legal health record. It is not the complete legal health record.[facility]
--- OUTSIDE RECORDS SUMMARY | 2025-06-20 19:09 | XMS_ITS ---
Author Organization [facility] Care Team Providers Care Mobile Therapist Name Role Phone Kaley Lozano Unavailable Unavailable Courtney Carter Unavailable Unavailable Norberto Muse Unavailable Unavailable Geri Meier Unavailable Unavailable Sowhitley, Mera Unavailable Unavailable Maddy Cardenas Unavailable Unavailable [facility], Alma Lopez Unavailable Unavailable Edyta Louis Unavailable Unavailable Edyta Falcon Unavailable Unavailable Dai, Steffany Unavailable Unavailable Heabi, Kelsea Unavailable Unavailable Cantin, Leonor Unavailable Unavailable Grippin, Tiffanie Unavailable Unavailable Gregory, Chanel Unavailable Unavailable Morgan Ortiza Unavailable Unavailable Tahira Clayton Unavailable Unavailable Lucy, Mary Unavailable Unavailable Shirokaja, Soraya Unavailable Unavailable Colon-Cartegna, Pao Unavailable Unavailabl e Allergies and adverse reactions No Known Allergies Care Team Name Role Address Phone Organization Dates Geri Meier PCP [address] [facility] [address], [place], [address], [place] (Office): : [facility] 05/17/2024 - 06/04/2024 Kaley Lozano [address] [facility] [address], [place], [address], [facility] (Office): : [phone] [facility] 05/17/2024 - 06/04/2024 [place], [address], [facility] (Office): : [facility] 05/17/2024 - 06/04/2024 Norberto CANALES [place], [facility] 05/17/2024 - 06/04/2024 Mera Ramirez [address] [facility] [address], [place], [address], [facility] (Office): : [phone] [facility] 05/17/2024 - 06/04/2024 Maddy Cardenas [address] [facility] [address], [place], [address], [facility] (Office): : [facility] 05/17/2024 - 06/04/2024 Alma Riggins NP [address] [facility] [address], [facility] [address], [facility] (Office): [facility] 05/17/2024 - 06/04/2024 Edyta Louis [place], [facility] 05/17/2024 - 06/04/2024 Edyta Falcon [address] [address], [place], [address], [facility] (Office): : [facility] 05/17/2024 - 06/04/2024 Steffany Lala [place], [facility] Justice eer [facility] 05/17/2024 - 06/04/2024 Kelsea Jimenez [address] [facility] [address], [place], [address], [facility] (Office): : [phone] [facility] 05/17/2024 - 06/04/2024 Leonor [place], [facility] Justice key[facility] 05/17/2024 - 06/04/2024 Tiffanie Bernard [address] , [place], [address], [place] (Office): : [phone] [facility] 05/17/2024 - 06/04/2024 Chanel Jenkins [address] [place] [address] [address], [place], [address], [facility] (Office): : [phone] [facility] 05/17/2024 - 06/04/2024 Chanel Ortiz [address] [facility] [address], [place], [address], [facility] (Office): : [phone] [facility] 05/17/2024 - 06/04/2024 Tahira Clayton [address] [facility] [address], [place], [address], [facility] (Office): : [phone] [facility] 05/17/2024 - 06/04/2024 Mary Ayala [address] [facility] [address], [place], [address], [facility] (Office): : [phone] [facility] 05/17/2024 - 06/04/2024 Soraya Cunningham [facility] 05/17/2024 - 06/04/[address] [facility] [address] [place] [address], [place], [address], [facility] (Office): [phone] [facility] 05/17/2024 - 06/04/2024 Mental Status Section Date Assessment Total Score Description 06/04/2024 BIMS 12 moderate cognit erin impairment CAM 0 No delirium ind icated PHQ-9 14 moderate depres peg 05/23/2024 BIMS 14 cognitively int act CAM 0 No delirium ind icated PHQ-9 12 moderate depres peg Insurance Providers Problems Problem # Description Date of onset Resolved Date Code CodeSystem Concern Status 1 ACUTE KIDNEY FAILURE, UNSPECIFIED 05/17/[address] active 2 BENIGN PROSTATIC HYPERPLASIA WITH LOWER URINARY TRACT SYMPTOMS 05/17/[address] active 3 COVID-19 05/17/[address] active 4 COVID-19 05/17/2005/18/[address] completed 5 DEPENDENCE ON OTHER ENABLING MACHINES AND DEVICES 05/17/[address] active 6 ENCOUNTER FOR SEPSIS AFTERCARE 05/17/[address] active 7 ESSENTIAL (PRIMARY) HYPERTENSION 05/17/[address] active 8 FEELING OF INCOMPLETE BLADDER EMPTYING 05/17/[address] active 9 ALIGNMENT MECHANIC (CURRENT) USE OF ANTICOAGULANTS 05/17/[address] active 10 ALIGNMENT MECHANIC (CURRENT) USE OF INSULIN 05/17/[address] active 11 MAJOR DEPRESSIVE DISORDER, RECURRENT, UNSPECIFIED 05/17/[address] active 12 MUSCLE WEAKNESS (GENERALIZED) 05/17/[address] active 13 OBSTRUCTIVE SLEEP APNEA (ADULT) (PEDIATRIC) 05/17/[address] active 14 OTHER ABNORMALITIES OF GAIT AND MOBILITY 05/17/[address] active 15 PAROXYSMAL ATRIAL FIBRILLATION 05/17/[address] active 16 PERSONAL HISTORY OF COVID-19 05/17/[address] active 17 PERSONAL HISTORY OF MALIGNANT NEOPLASM OF PROSTATE 05/17/[address] active 18 RETENTION OF URINE, UNSPECIFIED 05/17/[address] active 19 SEQUELAE OF OTHER SPECIFIED INFECTIOUS AND PARASITIC DISEASES 05/17/2005/18/[address] completed 20 TYPE 2 DIABETES MELLITUS WITH HYPERGLYCEMIA 05/17/[address] active 21 UNSTEADINESS ON FEET 05/17/[address] active 22 URINARY TRACT INFECTION, SITE NOT SPECIFIED 05/17/[address] active 23 VASCULAR DEMENTIA, UNSPECIFIED SEVERITY, WITHOUT BEHAVIORAL DISTURBANCE, PSYCHOTIC DISTURBANCE, MOOD DISTURBANCE, AND ANXIETY 05/17/[address] active 24 WEAKNESS 05/17/[address] active Reason for Referral No Reasons for Referral Entered Social History Social History Observation Description Start Date End Date Code Code System Current Smoking Status Tobacco smoking consumption unknown 868598094 SNOMED CT Sex Assigned At Male 1940 01643-4 [facility] Gender Identity Sexual Orientation Vital Signs Code Code System Vitals Name Values and Units Timing Information 09925-5 [facility] Weight Tdwxe=343.6 Units=Lbs 10/2023 2339-0 [facility] Blood Sugar Value=1.0 Units=mg/dL 9279-1 [facility] Respiratory Rate Value=17.0 Units=/m in 06/04/2024 8462-4 [facility] Blood Pressure-Diastolic Value=76 Un its=mmHg 06/04/2024 8480-6 [facility] Blood Pressure-Systolic Axsyn=235 Un its=mmHg 06/04/2024 8310-5 [facility] Body Temperature Value=97.7 Units= F 06/04/2024 8867-4 [facility] Heart rate Value=88.0 Units=/min 10/2023 62495-1 [facility] O2 % BldC Oximetry Value=96.0 Units= % 06/04/2024 47408-3 [facility] Pain Level Value=1.0 06/04/2024 8302-2 [facility] Height Value=68.0 Units=Inches 05/17/2024
--- OUTSIDE RECORDS SUMMARY | 2025-06-20 19:09 | XMS_ITS | Encounter Summary ---
Author Organization [facility] Address [address] [facility] [address] [place], [place] [address] Phone Care Team Providers Care Tobacco Drying Machine Operator Name Role Phone Didier Jung MD Primary Care Provider Reason for Referral * MRI/CAT Scan - Closed Specialty Diagnoses / Procedures Referred By Contac t Referred To Contact Radiology Diagnoses Memory deficit following other cerebrovascular disease Procedures MRI Brain CHG MRI BRAIN COMBO CHG MRI BRAIN Didier Jung MD [address] [place] [address] Phone: tel: fax: Referral ID Status Reason Start Date Expiration Date Visits Re quested Visits Authorized [id number] Closed 05/29/2024 07/28/2024 1 1 Encounter Details Date Type Department Care Team (Latest Contact Info) Description 05/29/2024 Transcribe Orders Virtual Department [address] [place] [address] Didier Jung MD [address] [place] [address] Memory deficit following other cerebrovascular disease (Primary Dx) Social History Tobacco Use Types Packs/Day Years [...] on file documented as of this encounter Results * MRI BRAIN WITHOUT CONTRAST (06/09/2024 5:32 PM EST) Anatomical Region Laterality Modality Head Magnetic Resonan ce 06/11/2024 3:49 PM EST Impressions 06/11/2024 3:53 PM EST 1. No acute intracranial infarction, hemorrhage or mass-effect. 2. Parenchymal volume loss with areas of T2 hyperintensities in the white matter, likely chronic small vessel disease. Narrative 06/11/2024 3:53 PM EST MRI BRAIN WITHOUT CONTRAST Referring clinician's provided indication for this examination in [facility]: Outside Radiology Order; memory loss TECHNIQUE: MRI BRAIN WITHOUT CONTRAST Multi-sequence, multi-planar MRI of the brain was performed without intravenous contrast. COMPARISON: None FINDINGS: Brain Parenchyma: No evidence of acute infarct, mass or hemorrhage. There are scattered foci of T2 hyperintensity in the white matter, likely a manifestation of chronic small vessel disease. Ventricular System and Extra-Axial Spaces: The ventricles and cortical sulci are prominent, as commonly seen in patients of this age. No evidence of midline shift or hydrocephalus. Extracranial Structures: Expected arterial flow signal is observed at the skull base. Procedure Note Tobias Du MD, PhD - 06/11/2024 MRI BRAIN WITHOUT CONTRAST Referring clinician's provided indication for this examination in [facility]:Outside Radiology Order; memory loss TECHNIQUE: MRI BRAIN WITHOUT CONTRAST Multi-sequence, multi-planar MRI of the brain was performed withoutintravenous contrast. COMPARISON: None FINDINGS: Brain Parenchyma: No evidence of acute infarct, mass or hemorrhage. Thereare scattered foci of T2 hyperintensity in the white matter, likely amanifestation of chronic small vessel disease. Ventricular System and Extra-Axial Spaces: The ventricles and corticalsulci are prominent, as commonly seen in patients of this age. No evidenceof midline shift or hydrocephalus. Extracranial Structures: Expected arterial flow signal is observed at theskull base. IMPRESSION: 1. No acute intracranial infarction, hemorrhage or mass-effect. 2. Parenchymal volume loss with areas of T2 hyperintensities in the whitematter, likely chronic small vessel disease. us Didier Jung MD IMG MR HEAD/NECK Final Result documented in this encounter Visit Diagnoses Diagnosis Memory deficit following other cerebrovascular disease- Primary Memory deficit following other cerebrovascular disease documented in this encounter Care Teams Tobacco Drying Machine Operator Relationship Specialty Start Date End Date Didier Jung MD [address] [place] [address] PCP - General Internal Medicine 08/30/22 documented as of this encounter Additional Source Comments The information contained in this document represents components of the legal health record. It is not the complete legal health record.[facility]
--- OUTSIDE RECORDS SUMMARY | 2025-06-20 19:09 | XMS_ITS | Encounter Summary ---
Author Organization [facility] Address [address] [place] [phone] Phone Care Team Providers Care Cocoa Bean Cleaner Name Role Phone Didier Jung MD Primary Care Provider Encounter Details Date Type Department Care Team (Late st Contact Info) Description 10/08/2022 Procedure Pass OR Admitting Dept - Virtual Department [address] [place] [id number] Social History Tobacco Use Types Packs/Day Years Used Date Smoking Tobacco: Former Cigarettes 1 20 1 960 - 1980 Smokeless Tobacco: Never Alcohol Use Standard Drinks/Week Comments Not Currently 0 (1 standard drink = 0.6 oz pur e alcohol) Sex and Gender Information Value Date Recorded Sex Assigned at Not on file Legal Sex Male 10:12 PM EDT Gender Identity Not on file Sexual Orientation Not on file documented as of this encounter Plan of Treatment Not on file documented as of this encounter Visit Diagnoses Not on filedocumented in this encounter Care Teams Cocoa Bean Cleaner Relationship Specialty Start Date End Date Didier Jung MD [address] [place] [id number] PCP - General Internal Medicine 08/30/22 documented as of this encounter Additional Source Comments The information contained in this document represents components of the legal health record. It is not the complete legal health record.[facility]
--- OUTSIDE RECORDS SUMMARY | 2025-06-20 19:09 | XMS_ITS ---
Author Organization [facility] Care Team Providers Care Public Relations Writer Name Role Phone Divyascarlett Kamala Unavailable Unavailable Linda Nuñez Unavailable Unavailable Edyta Louis Unavailable Unavailable Allergies and adverse reactions No Known Allergies Care Team Name Role Address Phone Organization Dates Adnan Divyaul PCP [address], [address], [place] (Office): : [facility] 05/11/2024 - 05/13/2024 Linda Nuñez [address] [place], [address], [place] (Office): : [facility] 05/11/2024 - 05/13/2024 Edyta Louis [address] [facility] [address], [address], [place] (Office): : [facility] 05/11/2024 - 05/13/2024 Mental Status Section Date Assessment Total Score Description 05/13/2024 BIMS 03 severe cognitiv e impairment CAM 0 No delirium ind icated Insurance Providers Problems Problem # Description Date of onset Resolved Date Code CodeSystem Concern Status 1 ACUTE KIDNEY FAILURE, UNSPECIFIED 05/11/[address] active 2 HISTORY OF FALLING 05/11/[address] active 3 MUSCLE WASTING AND ATROPHY, NOT ELSEWHERE CLASSIFIED, MULTIPLE SITES 05/11/[address] active 4 OBSTRUCTIVE SLEEP APNEA (ADULT) (PEDIATRIC) 05/11/[address] active 5 PERSONAL HISTORY OF MALIGNANT NEOPLASM OF PROSTATE 05/11/[address] active 6 RETENTION OF URINE, UNSPECIFIED 05/11/[address] active 7 RHABDOMYOLYSIS 05/11/[address] ac tive 8 TACHYCARDIA, UNSPECIFIED 05/11/[address] active 9 TYPE 2 DIABETES MELLITUS WITHOUT COMPLICATIONS 05/11/[address] active 10 UNSPECIFIED ATRIAL FLUTTER 05/11/[address] active 11 UNSPECIFIED PROTEIN-CALORIE MALNUTRITION 05/11/[address] active Reason for Referral No Reasons for Referral Entered Social History Social History Observation Description Start Date End Date Code Code System Current Smoking Status Tobacco smoking consumption unknown 022447347 SNOMED CT Sex Assigned At Male 1940 07775-2 LOINC Gender Identity Sexual Orientation Vital Signs Code Code System Vitals Name Values and Units Timing Information 09847-1 LOINC Pain Level Value=0.0 05/14/2024 9279-1 LOINC Respiratory Rate Value=18.0 Units=/m in 05/13/2024 8462-4 LOINC Blood Pressure-Diastolic Value=70 Un its=mmHg 05/13/2024 8480-6 LOINC Blood Pressure-Systolic Dmuiq=285 Un its=mmHg 05/13/2024 8310-5 LOINC Body Temperature Jinfg=205.2 Units= F 05/13/2024 8867-4 LOINC Heart rate Value=92.0 Units=/min 15626-9 LOINC O2 % BldC Oximetry Value=91.0 Units= % 05/13/2024 2339-0 [facility] Blood Sugar Unbga=834.0 Units=mg/dL 05/13/2024 54590-0 [facility] Weight Cqapy=127.1 Units=Lbs 06/2024 8302-2 [facility] Height Value=71.0 Units=Inches 05/11/2024
--- OUTSIDE RECORDS SUMMARY | 2025-06-20 19:09 | XMS_ITS | Encounter Summary ---
Author Organization [facility] Address [address] [place] [phone] Phone Care Team Providers Care Healthcare Management Name Role Phone Didier Jung MD Primary Care Provider Encounter Details Date Type Department Care Team ([facility] st Contact Info) Description 05/29/2024 Procedure Pass [address] [place] [address] Social History Tobacco Use Types Packs/Day Years [...] on filedocumented in this encounter Care Teams Healthcare Management Relationship Specialty Start Date End Date Didier Jung MD [address] [place] [address] PCP - General Internal Medicine 08/30/22 documented as of this encounter Additional Source Comments The information contained in this document represents components of the legal health record. It is not the complete legal health record.[facility]
== END 2025-06-20 15:04 | disposition home or self-care (01) ==
LOC: HO.HSMS 13:42
PROVIDERS: PCP Internal Medicine; Visit Provider Physician Assistant Medical
DX: G47.19 Other hypersomnia (principal); R41.89 Other symptoms and signs involving cognitive functions and awareness; R26.89 Other abnormalities of gait and mobility; M54.50 Low back pain, unspecified; G89.29 Other chronic pain
CPT/HCPCS: 99214

== ENCOUNTER → 2025-06-20 13:41 | Outpatient (BNVA) | payer OTHER, SELFPAY | PROVIDERS: PCP Internal Medicine; Visit Provider Physician Assistant Medical | DX: G47.19 Other hypersomnia (principal); G89.29 Other chronic pain; M54.50 Low back pain, unspecified; R41.89 Other symptoms and signs involving cognitive functions and awareness; R26.89 Other abnormalities of gait and mobility | CPT/HCPCS: 99212 ==